=== PATIENT | male | born 1930 | race Caucasian/White ===

== ENCOUNTER 2017-09-11 05:30 | Day surgery (SDC) | payer MEDICARE, BC ==
[~2017-09-11] VITALS: Ht 182.9 cm; Wt 77.1 kg
[~2017-09-11 05:30] MED LIST: ADVAIR 250-501 EACH INH; ASPIRIN EC81 MG PO; BENEFIBER1 EAC1 PO; CALCIUM + VITA1 EACH PO; CALCIUM500 M1 PO; CARBIDOPA-LEVO1 EAC1 PO; FLUZONE HI180 MCG/07 IM; GLUCOSAMINE CH1 EAC4 PO; GLUCOSAMINE SU500 M1 NG; LEVAQUIN500 MG PO; LOSARTAN-HCTZ1 EAC2 PO; MIRALAX17 GM PO; NORCO 5-325 TA1 EACH PO; SYMBICORT 16010.2 GM INH; TERAZOSIN HCL1 MG PO; VITAMIN C500 M1 PO; VITAMIN D1000 UNI1 PO
--- NOTE | 2017-09-11 07:52 | NUR ---
09/11/17 0752 Inessa Quan 0723 PATIENT ARRIVES TO PACU RESTING WITH EYES CLOSED, RESPONDS APPROPRIATELY TO VERBAL STIMUIL. RESP EVEN AND UNLABORED, MASK AT 10 LITERS ON ARRIVAL, TURNED DOWN TO 6L IN PACU.
--- NOTE | 2017-09-11 08:12 | NUR ---
ICED WATER, PUDDING AND COFFEE GIVEN. CALL LIGHT W/IN REACH. PATIENT DRINKING COFFEE AND TOLERATING THAT WELL.
--- NOTE | 2017-09-11 11:17 | NUR ---
LE 1020: PT UP TO BR W/RN STANDBY ASSIST. PT AMBULATES WELL WITH HIS PERSONAL WALKER AND DOES THAT WELL. VERBAL DC INSTRUCTIONS ARE GIVEN AND PATIENT VERBALIZES UNDERSTANDING. PATIENT REQUESTS TO AMBULATE OUT OF HOSPITAL AFTER DRESSING HIMSELF AND WE OBLIGE W/RN ACCOMPANYMENT. SWITCH[employer] CALLING PATIENT'S TRANSPORTATION.
--- NOTE | 2017-09-16 07:27 | OR ---
[facility] [address] [place], [place] [address] Signed DATE OF OPERATION: 09/11/2017 SURGEON: Mark Gardner MD PREOPERATIVE DIAGNOSIS: Asymptomatic loosened orthopedic hardware dorsal aspect, right wrist. POSTOPERATIVE DIAGNOSIS: Asymptomatic loosened orthopedic hardware dorsal aspect, right wrist. PROCEDURE: Removal of hardware. SECONDARY DIAGNOSIS: Posttraumatic osteoarthritis of the right wrist. SECONDARY PROCEDURE: Injection of the right wrist with Xylocaine and Kenalog. ANESTHESIA: General. SPECIMENS: There were no specimens or complications. The removed staple was given to the patient per his request. WHAT WAS DONE: The patient was taken to the operating room. After anesthesia was induced and the airway secured, the right upper extremity was positioned, prepped and draped in a routine sterile fashion. Using his old wrist fusion scar, a small longitudinal incision was made over the dorsal aspect of the wrist. Skin was divided sharply. Subcutaneous tissue was bluntly spread, at which point, we entered into an adventitial bursa around the loose staple. The staple was identified and gently extricated without any difficulty. The wound was irrigated and closed in two layers. Then under fluoroscopic control, we directed an 18-gauge needle into the radiocarpal joint and injected about 2 mL of 1% plain Xylocaine and 1 mL of Kenalog 40. We then infiltrated the area about the incision with an additional 10 mL of 1% plain xylocaine. A sterile dressing was applied. The patient was awakened and taken to the recovery room where he arrived in stable condition. Counts were correct and antibiotic protocols were followed. Electronically Signed By: MARK GARDNER MD 09/16/17 0727 PATIENT NAME: KELLY EARLY OPERATIVE REPORT DATE OF : 32 REPORT #: [id number] PHYSICIAN: MARK GARDNER MD PCP: FISH ALLRED MD REPORT IS CONFIDENTIAL AND NOT TO BE RELEASED WITHOUT AUTHORIZATION [address] [place] [address] Signed Mark Gardner MD WFB/MODL /[id number] Copies: ~ Electronically Signed By: MARK GARDNER MD 09/16/17 0727 PATIENT NAME: KELLY EARLY OPERATIVE REPORT DATE OF : 32 REPORT #: [id number] PHYSICIAN: MARK GARDNER MD PCP: FISH ALLRED MD REPORT IS CONFIDENTIAL AND NOT TO BE RELEASED WITHOUT AUTHORIZATION
== END 2017-09-11 09:35 | disposition home or self-care (01) ==
LOC: OPS 05:30 → DS 05:30 → OPS 06:45 → DS 06:45 → OPS 09:35
PROVIDERS: Orthopaedic Surgery
PROC: 0RPN04Z Removal of Internal Fixation Device from Right Wrist Joint, Open Approach (ICD-10-PCS; principal; 2017-09-11 06:45)
DX: T84.122A Displacement of internal fixation device of bone of right forearm, initial encounter (principal); J45.909 Unspecified asthma, uncomplicated; G20 Parkinson's disease; Z79.82 Long term (current) use of aspirin; Z79.899 Other long term (current) drug therapy
CPT/HCPCS: 01820; 73100; J0690; J2405; J2704; J3010; J3301; J7120

== ENCOUNTER 2018-06-16 05:40 | Day surgery (SDC) | payer MEDICARE, BC ==
[~2018-06-16] VITALS: Ht 182.9 cm; Wt 86.2 kg
--- NOTE | 2018-06-16 09:23 | NUR ---
06/16/18 0923 Holly Menjivar 0801 PT ARRIVED IN PACU SLEEPY WITH NO C/O'S. R HAND ELEVATED ON PILLOW WITH ICE PLACED. 0845 OXYGEN DECREASED TO 6L VIA MASK WITH SATS 100%. 0900 OXYGEN REMOVED. SATS 96% ON RA. PT SITTING UP IN BED SIPPING ON WATER. 0910 DC INSTRUCTIONS GIVEN. HELPED PT GET DRESSED AND SENT PT HOME WITH STAPLE FROM OR. 0915 LEFT VIA W/C WITH VOLUNTEER TO LOBBY WITH [employer] RIDE.
--- NOTE | 2018-06-16 12:19 | NUR ---
PT REQUESTED TO SEE IMELDA CHAU. ALERTED HER TO HIS REQUEST
--- NOTE | 2018-06-18 00:51 | EKG ---
[facility] [address] [facility] [place] [address] Signed Sinus bradycardia with 1st degree AV block Right bundle branch block Left anterior fascicular block Bifascicular block Minimal voltage criteria for LVH, may be normal variant Abnormal ECG No previous ECGs available Confirmed by YOVANI DEVINE MD ([id number]) on 06/18/2018 12:51:37 AM Electronically Signed By: YOVANI DEVINE MD 06/18/18 0051 PATIENT NAME: SHARATHKELLYANTONIO BALL Electrocardiogram DATE OF : 32 PHYSICIAN: YOVANI DEVINE MD REPORT #: [id number] REPORT IS CONFIDENTIAL AND NOT TO BE RELEASED WITHOUT AUTHORIZATION
--- NOTE | 2018-06-18 07:09 | OR ---
[facility] [address] [facility] [place] [facility] [place], [place] [address] Signed DATE OF OPERATION: 06/16/2018 SURGEON: Mark Schuster MD PREOPERATIVE DIAGNOSIS: Symptomatic hardware, right wrist. POSTOPERATIVE DIAGNOSES: 1. Symptomatic hardware, right wrist. 2. Reactive synovitis, right wrist. 3. Rupture of EIP tendon, right wrist. 4. End-stage arthritis, right radiocarpal joint. PROCEDURE: Synovectomy right wrist, removal of retained staple x1 right wrist with a limited proximal row carpectomy, removing most of the remainder of the lunate. ANESTHESIA: General. SPECIMENS: We did send a large fragment of the synovitis as a specimen because of the hemosiderin staining. COMPLICATIONS: There were no complications. WHAT WAS DONE: The patient was taken to the operating room. After anesthesia was induced and airway secured, the patient was positioned, prepped and draped in a routine sterile fashion. We used an old dorsal scar sort of along the 4th dorsal compartment and incised the skin. Underneath it was a large area of chronic hemosiderin-stained synovitis involving the 4th dorsal compartment primarily. A synovectomy was performed and as we had dissected the synovium off, it was apparent that the EIP had previously ruptured and the ends were rounded and smooth. After completing the synovectomy, it led through a defect in the dorsal capsule of the wrist joint. This was opened gently with the use of rongeur to do a synovectomy of the wrist joint. We then identified and removed. The capitate lunate staple which was loose and there was a clear nonunion at the capitate lunate interval. We then removed most of the remaining portion of the lunate. This then enabled us to regain about 45 degrees of dorsal flexion of the wrist. We elected Electronically Signed By: MARK SCHUSTER MD 06/18/18 0709 PATIENT NAME: KELLY EARLY OPERATIVE REPORT DATE OF : 32 REPORT #: [id number] PHYSICIAN: MARK SCHUSTER MD PCP: FISH ALLRED MD REPORT IS CONFIDENTIAL AND NOT TO BE RELEASED WITHOUT AUTHORIZATION [facility] [address] [place], [place] [address] Signed to leave the hamate in place as it was significantly volarly subluxed and appeared to be stable on the ulnar column. The wound was gently irrigated. We closed the dorsal wrist capsule with 2-0 Vicryl and I closed the subcutaneous layer with 4-0 Vicryl. The skin was secured with Dermabond. A bulky dressing was applied and the patient was awakened and taken to recovery room where he arrived in stable condition. Counts were correct and antibiotic protocols were followed. Mark Schuster MD WFRay/MODL /[id number] Copies: ~ Electronically Signed By: MARK SCHUSTER MD 06/18/18 0709 PATIENT NAME: KELLY EARLY OPERATIVE REPORT DATE OF : 32 REPORT #: [id number] PHYSICIAN: MARK SCHUSTER MD PCP: FISH ALLRED MD REPORT IS CONFIDENTIAL AND NOT TO BE RELEASED WITHOUT AUTHORIZATION
== END 2018-06-16 09:15 | disposition home or self-care (01) ==
LOC: DS 05:40 → OPS 05:40 → DS 06:45 → OPS 06:45
PROVIDERS: Orthopaedic Surgery
PROC: 0PPM04Z Removal of Internal Fixation Device from Right Carpal, Open Approach (ICD-10-PCS; principal; 2018-06-16 06:45)
DX: T84.84XA Pain due to internal orthopedic prosthetic devices, implants and grafts, initial encounter (principal); M19.031 Primary osteoarthritis, right wrist; M65.821 Other synovitis and tenosynovitis, right upper arm; I10 Essential (primary) hypertension; J44.9 Chronic obstructive pulmonary disease, unspecified; G20 Parkinson's disease; Z79.82 Long term (current) use of aspirin; Z79.899 Other long term (current) drug therapy
CPT/HCPCS: 01820; 76000; 88305; 88311; 93005; 93010; J0690; J2250; J2704; J3010; J7120

== ENCOUNTER 2018-10-06 14:23 | Emergency (ER) | payer MEDICARE, BC ==
[~2018-10-06] VITALS: Ht 182.9 cm; Wt 86.2 kg
--- OUTSIDE RECORDS SUMMARY | ~2018-10-06 | XMS | Clinical Summary ---
Demographics + + + | Address | [address] | | | [place] [address] | + + + | Home Phone | | + + + | Preferred Language | Unknown | + + + | Marital Status | | + + + | Episcopal Affiliation | Unknown | + + + | Race | White | + + + | Ethnic Group | Not or | + + + Author + + + | Organization | Unknown | + + + | Address | Unknown | + + + | Phone | Unavailable | + + + Support + + + + + | Name | Relationship | Address | Phone | + + + + + | ERICKSON EARLY I | ECON | [place] | | + + + + + Care Team Providers + +------+ + | Care Nailhead Puncher Name | Role | Phone | + +------+ + PP | Unavailable | + +------+ + Source Comments NOAH is fully live on both [facility] Ambulatory and [facility] InPatient.[facility] Allergies Not on File Current Medications Not on file Active Problems Not on file Social History + +-------+ +--------+------+ | Tobacco Use | Types | Packs/Day | Years | Date | | | | | Used | | + +-------+ +--------+------+ | Never Assessed | | | | | + +-------+ +--------+------+ + + + | Sex Assigned at | Date Recorded | | | | + + + | Not on file | | + + + Plan of Treatment + + + + + | Health Maintenance | Due Date | Last Done | Comments | + + + + + | Pneumococcal (Adult) | | | | | (1 of 2 - PCV13) | 8 | | | + + + + + | Influenza (Flu) | | | | | vaccination (#1) | 8 | | | + + + + + Results Not on filefrom Last 3 Months"
--- OUTSIDE RECORDS SUMMARY | ~2018-10-06 | XMS | Clinical Summary ---
Demographics + + + | Address | [address] | | | [place] [address] | + + + | Home Phone | | + + + | Preferred Language | Unknown | + + + | Marital Status | | + + + | Zoroastrianism Affiliation | Unknown | + + + [...] Team Providers + +------+ + | Care Greenhouse Specialist Name | Role | Phone | + +------+ + PP | Unavailable | + +------+ + Source Comments NOAH is fully live on both [facility] and [facility] InPatient.[facility] Allergies Not on File Current Medications [...]
[2018-10-06] MEDS ORDERED: TROSPIUM CHLORI20 MG PO (14:49)
[2018-10-06] MEDS ORDERED: SYMBICORT 16010.2 GM INH (14:50)
[2018-10-06] MEDS ORDERED: AMLODIPINE BESYL5 MG PO (16:19)
== END 2018-10-06 16:48 | disposition home or self-care (01) ==
LOC: ED 14:23
DX: I10 Essential (primary) hypertension (principal); R42 Dizziness and giddiness; J44.9 Chronic obstructive pulmonary disease, unspecified; Z79.899 Other long term (current) drug therapy; Z79.82 Long term (current) use of aspirin
CPT/HCPCS: 80053; 84484; 85025; 99284

== ENCOUNTER 2019-08-14 16:25 | Emergency (ER) | payer MEDICARE, BC ==
[~2019-08-14] VITALS: Ht 182.9 cm; Wt 86.2 kg
[~2019-08-14 16:25] MED LIST changes: +AMLODIPINE BESYL5 MG PO; +TROSPIUM CHLORI20 MG PO
--- NOTE | 2019-08-14 20:17 | EKG ---
[facility] [address] [facility] [place] [address] Signed Sinus rhythm with 1st degree AV block Right bundle branch block Left anterior fascicular block Bifascicular block Left ventricular hypertrophy with repolarization abnormality Abnormal ECG When compared with ECG of 16-JUN-2018 07:20, T wave inversion no longer evident in Inferior leads Confirmed by JABARI JOSEPH MD ([id number]) on 08/14/2019 8:17:37 PM Electronically Signed By: JABARI JOSEPH MD 08/14/192016 PATIENT NAME: KELLY EARLY Electrocardiogram DATE OF : 32 PHYSICIAN: JABARI JOSEPH MD REPORT #: [id number] REPORT IS CONFIDENTIAL AND NOT TO BE RELEASED WITHOUT AUTHORIZATION
== END 2019-08-14 18:42 | disposition home or self-care (01) ==
LOC: ED 16:25
DX: E86.0 Dehydration (principal); G20 Parkinson's disease; J44.9 Chronic obstructive pulmonary disease, unspecified; Z79.899 Other long term (current) drug therapy; Z79.82 Long term (current) use of aspirin
CPT/HCPCS: 80053; 81001; 85025; 93005; 93010; 96360; 99285-25; J7121

== ENCOUNTER 2019-08-18 22:20 | Observation (INO) | payer MEDICARE, BC ==
[~2019-08-18] VITALS: Ht 182.9 cm; Wt 77.1 kg
[~2019-08-18 22:20] MED LIST changes: -AMLODIPINE BESYL5 MG PO; +NORVASC10 MG PO; -VITAMIN D1000 UNI1 PO; +VITAMIN D325 MC1 PO
--- OUTSIDE RECORDS SUMMARY | 2019-08-18 22:22 | XMS ---
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 EBraydon VISIT COUNT (12 MO.) 3 [facility] TOTAL 3 NOTE: Visits indicate total known visits. ED/UCC VISIT TRACKING (12 MO.) 08/18/2019 22:20 [facility] [place] TYPE: Emergency COMPLAINT: - FALL 08/14/2019 16:25 [facility] [place] TYPE: Emergency COMPLAINT: - WEAKNESSR DIAGNOSES: - Chronic obstructive pulmonary disease, unspecified - Other fpc (current) drug therapy - Weakness - Dehydration - exterminator helper termite (current) use of aspirin - Parkinson's disease 10/06/2018 14:[address] [facility] [place] TYPE: Emergency COMPLAINT: - FALL,HIGH BLOOD PRESSURE DIAGNOSES: - exterminator helper termite (current) use of aspirin - Other fpc (current) drug therapy - Essential (primary) hypertension - Chronic obstructive pulmonary disease, unspecified - Unspecified fall, initial encounter - Dizziness and giddiness INPATIENT VISIT TRACKING (12 MO.) No inpatient visits to display in this time frame [email or web address]
[2019-08-19] MEDS ORDERED: COZAAR100 MG PO (09:12)
[2019-08-19] MEDS ORDERED: MELATIN3 MG PO (09:17)
[2019-08-19] MEDS ORDERED: CALCIUM 600 +1 EA12 PO (09:19)
[2019-08-19] MEDS ORDERED: VITAMIN C500 M1 PO (09:21)
[2019-08-19] MEDS ORDERED: ADVIL200 MG PO (10:31)
--- NOTE | 2019-08-20 06:19 | CONS ---
[facility] [address] [place], [place] [address] Signed DATE OF CONSULTATION: 08/19/2019 CHIEF COMPLAINT: Trauma/fall. HISTORY OF PRESENT ILLNESS: Kelly is an 89-year-old gentleman with Parkinson disease since 2016. I have known Kelly for many years. He now lives at [facility]. It is an assisted living setting. He uses a four-wheeled walker to get around. He was headed into the bathroom and got going too far forward and fell. He said there was a pearce outside the bathtub on the floor that catches the extra water. It sticks up off the floor 3 to 6 inches. From what we can tell, he struck the left side of his chest wall on that pearce. He said it took him a few minutes to actually get up. To his knowledge, he had no loss of consciousness. He was brought into our local emergency room. He was evaluated by Dr. Pickering. He has left rib fractures 4, 5, and 6. The 5th rib is actually comminuted. He has a small amount of subcutaneous emphysema. Therefore, a CT scan was performed and he does have a very tiny pneumothorax with some associated blood. He also has a nondisplaced left scapular fracture. Consequently, I was asked to admit him as a general surgeon on-call. Overnight, he has done well. He said the pain is pretty impressive. PAST MEDICAL HISTORY: Parkinson disease since 2016, COPD, prostate cancer, right clavicular fracture, and a small hiatal hernia. PAST SURGICAL HISTORY: Right wrist surgery, brachytherapy for the prostate cancer. SOCIAL HISTORY: He does not smoke or drink anymore. He is a . Dr. Anthony Tubbs is his primary care provider. He prefers the [facility]. His brother is Hunter at [phone]. He has three of his own sons and he has four stepdaughters. He stays at [facility]. He no longer drives and uses a four-wheeled walker. FAMILY HISTORY: Not reviewed. REVIEW OF SYSTEMS: He had 10 systems reviewed. He told me how he has gone from the cane to the four-wheeled walker. Otherwise, no major changes. ALLERGIES: None. Electronically Signed By: LOUISE FERNANDEZ MD 08/20/19 0619 PATIENT NAME: KELLY EARLY CONSULTATION DATE OF : 32 REPORT #: [id number] PHYSICIAN: LOUISE FERNANDEZ MD PCP: ANTHONY TUBBS MD REPORT IS CONFIDENTIAL AND NOT TO BE RELEASED WITHOUT AUTHORIZATION [facility] [address] [place], [place] [address] Signed MEDICATIONS: 1. Symbicort. 2. Sinemet. 3. Losartan. 4. Hydrochlorothiazide. 5. Aspirin. 6. Vitamin C. 7. Vitamin D. 8. Glucosamine. 9. Calcium. 10. . 11. Amlodipine. PHYSICAL EXAMINATION: VITAL SIGNS: Blood pressure 158/76, heart rate 82, respiratory rate 20, his temperature is 98.5, he is 95% on room air. He is 6 feet tall, weight 77 kg. We are waiting an incentive spirometer. GENERAL: Kelly is an 89-year-old gentleman lying supine in his hospital bed. He is alert, awake, and interactive. He recognizes me quite readily. LUNGS: Clear to auscultation bilaterally. He does have some pain in that left chest wall particularly posteriorly. HEART: Regular rate and rhythm without murmurs. ABDOMEN: Soft, nontender. LABORATORY DATA: His white blood cell count is 13.2, hemoglobin 11.9, neutrophils 88, platelets 226. BUN 19, creatinine 0.8. Urinalysis unremarkable. Liver function tests are negative. His amylase is negative. Alcohol was less than 10. His creatine kinase was 395. RADIOGRAPHIC STUDIES: A chest x-ray shows the left 4th, 5th and 6th rib fractures with a small amount of subcutaneous emphysema. No obvious pneumothorax on the chest x-ray. CT scan of the chest does show the left 4th, 5th, and 6th rib fractures. The 5th rib fracture appears to be comminuted. Of course, he has a small amount of subcutaneous emphysema and just a very trace amount of left pneumothorax with some blood associated with it. He may or may not have some contusion there to that lung and then he has the left nondisplaced scapular fracture. ASSESSMENT AND PLAN: Kelly is an 89-year-old gentleman who presents after a ground level fall onto a hard shower pearce. He now has a left rib fracture 4, 5, and 6 along with left scapular fracture, probable pulmonary contusion, a very small trace left pneumothorax. He has been admitted, given IV fluids overnight, and some pain control. This morning, we are Electronically Signed By: LOUISE FERNANDEZ MD 08/20/19 0619 PATIENT NAME: KELLY EARLY CONSULTATION DATE OF : 32 REPORT #: [id number] PHYSICIAN: LOUISE FERNANDEZ MD PCP: ANTHONY TUBBS MD REPORT IS CONFIDENTIAL AND NOT TO BE RELEASED WITHOUT AUTHORIZATION [facility] [address] [place] [address] Signed going to consult our Physical Therapy Department. We will have him help with his front-wheeled walker. We will increase his diet and add his medications and we will repeat the chest x-ray tomorrow. He knows that in a day or 2 or 3 depending on his progress, he may go back to [facility], but he may need a mcfp for short time until he is feeling better, then can go back to [facility]. He has expressed understanding and agrees with above plan. Louise Fernandez MD ALB/ORALIAL /[id number] cc: Anthony Tubbs MD Copies: ANTHONY TUBBS MD ~ Electronically Signed By: LOUISE FERNANDEZ MD 08/20/19 0619 PATIENT NAME: KELLY EARLY CONSULTATION DATE OF : 32 REPORT #: [id number] PHYSICIAN: LOUISE FERNANDEZ MD PCP: ANTHONY TUBBS MD REPORT IS CONFIDENTIAL AND NOT TO BE RELEASED WITHOUT AUTHORIZATION
[2019-08-23] MEDS ORDERED: NORCO 5-325 TA1 EACH PO (08:07)
--- NOTE | 2019-08-24 18:30 | DS ---
[facility] [address] [place], [place] [address] Signed ADMISSION DATE: 08/18/2019 DISCHARGE DATE: 08/23/2019 FINAL DIAGNOSES: 1. Left rib fractures, 4, 5, and 6. 2. Left scapular fracture. 3. Trace left pneumothorax. PROCEDURE: X-rays. HISTORY OF PRESENT ILLNESS: Kelly is an 89-year-old gentleman with Parkinson disease. He resides at our local [facility]. He was headed into the bathroom and the walker got front of him and he fell forward onto a drip pearce next to the shower. It sits up off the floor 3 or 4 inches. He fractured his left scapula as well as left ribs 4, 5, and 6. In fact, rib 5 is a bit comminuted. He also had a trace pneumothorax. He had been brought to our local emergency room for evaluation. I was asked to admit him as a general surgeon on-call. HOSPITAL COURSE: Kelly was admitted as above. He actually has done well. Given his age and his Parkinson disease, we had him work with physical therapy every day. He has been able to improve each and every day. He is now on a regular diet and taking his regular medications. He took one hydrocodone yesterday and otherwise is doing well. He thinks Advil works pretty well for him. We did add some Dulcolax and MiraLAX to jump-start his bowel movements. Kelly has been in an extended care facility previously. We did talk about that and he feels at this point he is strong enough he does not need that. He wanted to go back to [facility]. DISCHARGE PLANS AND MEDICATIONS: Kelly is going to go back to [facility]. He will continue a regular diet and all his regular medications. I will give him a small prescription for hydrocodone 5/325 1 tablet p.o. q.6 hours p.r.n. for severe pain. We will dispense 20 tablets with no refills. He can continue to use his walker and ambulate as needed. He will shower and bathe as needed as well. We are going to see him back in the office in about 10-14 days for followup. He has expressed understanding and agrees above plan. Electronically Signed By: LOUISE FERNANDEZ MD 08/24/19 1830 PATIENT NAME: KELLY EARLY DISCHARGE SUMMARY DATE OF : 32 REPORT #: [id number] PHYSICIAN: LOUISE FERNANDEZ MD PCP: ANTHONY ALLRED MD REPORT IS CONFIDENTIAL AND NOT TO BE RELEASED WITHOUT AUTHORIZATION [address] [address] Signed MD IGOR Tripp/ORALIAL /[id number] cc: MD Anthony Tripp MD Copies: LOUISE FERNANDEZ MD, MALCOLM MD ~ Electronically Signed By: LOUISE FERNANDEZ MD 08/24/19 1830 PATIENT NAME: KELLY EARLY LIZZY DISCHARGE SUMMARY DATE OF : 32 REPORT #: [id number] PHYSICIAN: LOUISE FERNANDEZ MD PCP: ANTHONY ALLRED MD REPORT IS CONFIDENTIAL AND NOT TO BE RELEASED WITHOUT AUTHORIZATION
== END 2019-08-23 09:40 | disposition home or self-care (01) ==
LOC: ED 22:20 → MS 22:21
PROVIDERS: ADMIT Colon & Rectal Surgery
DX: S22.42XA Multiple fractures of ribs, left side, initial encounter for closed fracture (principal); S42.192A Fracture of other part of scapula, left shoulder, initial encounter for closed fracture; S27.0XXA Traumatic pneumothorax, initial encounter; G20 Parkinson's disease; J44.9 Chronic obstructive pulmonary disease, unspecified; Z79.899 Other long term (current) drug therapy; W19.XXXA Unspecified fall, initial encounter
CPT/HCPCS: 36415; 71046; 71101; 71260; 80048; 80053; 81001; 82150; 82550; 83690; 83735; 84100; 85025; 86850; 86900; 86901; 94640; 94760; 96360; 96361; 96374; 97110; 97116; 97162; 99285-25; G0378; G0480; J2270; J7030; J7121; Q9967

== ENCOUNTER 2020-03-04 07:40 | Emergency (ER) | payer MEDICARE, BC ==
[~2020-03-04] VITALS: Ht 182.9 cm; Wt 77.1 kg
[~2020-03-04 07:40] MED LIST changes: +ADVIL200 MG PO; +CALCIUM 600 +1 EA12 PO; +COZAAR100 MG PO; +MELATIN3 MG PO
[2020-03-04] MEDS ORDERED: FLOMAX0.4 MG PO (12:16)
--- NOTE | 2020-03-04 13:13 | EKG ---
[facility] [address] [facility] [place] [address] Signed Sinus rhythm with 1st degree AV block Right bundle branch block Left anterior fascicular block Bifascicular block Abnormal ECG When compared with ECG of 14-AUG-2019 16:40, No significant change was found Confirmed by YOVANI DEVNIE MD ([id number]) on 03/04/2020 1:13:20 PM Electronically Signed By: YOVANI DEVINE MD 03/04/20 1313 PATIENT NAME: KELLY EARLY LIZZY Electrocardiogram DATE OF : 32 PHYSICIAN: YOVANI DEVINE MD REPORT #: [id number] REPORT IS CONFIDENTIAL AND NOT TO BE RELEASED WITHOUT AUTHORIZATION
[2020-03-05] MEDS ORDERED: TAMSULOSIN HCL0.4 MG PO (08:22)
[2020-03-05] MEDS ORDERED: KEFLEX500 MG PO (12:46)
== END 2020-03-04 13:16 | disposition home or self-care (01) ==
LOC: ED 07:40
DX: R33.9 Retention of urine, unspecified (principal); R60.0 Localized edema; J44.9 Chronic obstructive pulmonary disease, unspecified; G20 Parkinson's disease; Z79.899 Other long term (current) drug therapy
CPT/HCPCS: 51702; 51798; 80053; 81001; 83880; 84484; 85025; 93005; 93010; 99284-25; J1940

== ENCOUNTER 2020-03-05 08:07 | Emergency (ER) | payer MEDICARE, BC ==
[~2020-03-05] VITALS: Ht 182.9 cm; Wt 77.1 kg
[~2020-03-05 08:07] MED LIST changes: +FLOMAX0.4 MG PO
--- OUTSIDE RECORDS SUMMARY | 2020-03-05 08:10 | XMS ---
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 - 2 Visits in 30 Days CARE PROVIDERS FISH ALLRED Internal Medicine 08/19/2019-Current PHONE: Unknown Helen has no Care Guidelines for this patient. Care History Medical/Surgical 08/19/2019 [facility] - Patient is currently established with [facility]. If patient is seen in the ED during business hours. Please contact CHWs at [facility]. Care Recommendation: If this patient has had 5 or more Emergency Department visits in the last 12 months.\T\nbsp; Patient will require education on the scope and purpose of the ED as an acute care provider not a Primary Care Provider and should not be utilized for chronic conditions.\T\nbsp; These are guidelines and the provider should exercise clinical judgment when providing care. E.D. VISIT COUNT (12 MO.) 4 [facility] TOTAL 4 NOTE: Visits indicate total known visits. 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
[2020-03-05] MEDS ORDERED: TAMSULOSIN HCL0.4 MG PO (08:22)
[2020-03-05] MEDS ORDERED: KEFLEX500 MG PO (12:46)
--- NOTE | 2020-03-05 12:49 | EKG ---
[facility] [address] [facility] [place] [address] Signed Sinus rhythm with first degree AV Block Left anterior fascicular block Right bundle branch block Bifascicular block Left ventricular hypertrophy Abnormal ECG When compared with ECG of 04-MAR-2020 08:08, No significant change was found Confirmed by YOVANI DEVINE MD ([id number]) on 03/05/2020 12:49:36 PM Electronically Signed By: YOVANI DEVINE MD 03/05/20 1249 PATIENT NAME: KELLY EARLY Electrocardiogram DATE OF : 32 PHYSICIAN: YOVANI DEVINE MD REPORT #: [id number] REPORT IS CONFIDENTIAL AND NOT TO BE RELEASED WITHOUT AUTHORIZATION
== END 2020-03-05 12:58 | disposition home or self-care (01) ==
LOC: ED 08:07
DX: N39.0 Urinary tract infection, site not specified (principal); K59.00 Constipation, unspecified; J44.9 Chronic obstructive pulmonary disease, unspecified; G20 Parkinson's disease; Z79.899 Other long term (current) drug therapy
CPT/HCPCS: 71045; 74177; 80053; 81001; 83735; 83880; 84484; 85025; 85610; 85730; 93005; 93010; 96361; 99285-25; J0696; J7030

== ENCOUNTER 2020-03-07 18:34 | Emergency (ER) | payer MEDICARE, BC ==
[~2020-03-07] VITALS: Ht 182.9 cm; Wt 77.1 kg
[~2020-03-07 18:34] MED LIST changes: +KEFLEX500 MG PO; +TAMSULOSIN HCL0.4 MG PO
--- OUTSIDE RECORDS SUMMARY | 2020-03-07 18:36 | XMS ---
PreManage Notification: KELLY EARLY Security Discovery Guide Events No recent Security Events currently on file CRITERIA MET - [facility] - 2 Visits in 30 Days CARE PROVIDERS FISH ALLRED Internal Medicine 08/19/2019-Current PHONE: Unknown Helen has no Care Guidelines for this patient. Care History Medical/Surgical 08/19/2019 [facility] - Patient is currently established with [facility]. If patient is seen in the ED during business hours. Please contact CHWs at [facility]. Care Recommendation: If this patient has had [...] providing care. E.D. VISIT COUNT (12 MO.) 5 [facility] TOTAL 5 NOTE: Visits indicate total known visits. ED/UCC VISIT TRACKING (12 MO.) 03/07/2020 18:35 [facility] [place] TYPE: Emergency COMPLAINT: - RECTAL BLEEDING 03/05/2020 08:07 [facility] [place] TYPE: Emergency COMPLAINT: - WEAKNESS 03/04/2020 07:40 [facility] [place] TYPE: Emergency COMPLAINT: - WEAKNESS DIAGNOSES: - Parkinson's disease - Other mcfp (current) drug therapy - Localized edema - Chronic obstructive pulmonary disease, unspecified - Retention of urine, unspecified - Other difficulties with micturition 08/18/2019 22:20 [facility] [place] TYPE: Emergency COMPLAINT: - FALL 08/14/2019 16:25 [facility] [place] TYPE: Emergency COMPLAINT: - WEAKNESSR DIAGNOSES: - Chronic obstructive pulmonary disease, unspecified - Other adjunct faculty for medical terminology (current) drug 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 - Weakness - Dehydration - 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 - Parkinson's disease INPATIENT VISIT TRACKING (12 MO.) 08/18/2019 22:21 [facility] [place] TYPE: Observation COMPLAINT: - CHEST TRAUMA DIAGNOSES: - Dizziness and giddiness - Unspecified fall, initial encounter - Fracture of other part of scapula, left shoulder, initial enc - Parkinson's disease - Other adjunct faculty for medical terminology (current) drug therapy - Traumatic pneumothorax, initial encounter - Chronic obstructive pulmonary disease, unspecified - Multiple fractures of ribs, left side, initial encounter for [email or web address]
[2020-03-08] MEDS ORDERED: K-TAB ER20 MEQ PO (13:45)
--- NOTE | 2020-03-09 17:45 | EKG ---
[facility] [address] [place] [place] [address] Signed Atrial fibrillation with slow ventricular response Right bundle branch block Left anterior fascicular block Bifascicular block Minimal voltage criteria for LVH, may be normal variant Abnormal ECG When compared with ECG of 05-MAR-2020 08:49, Previous ECG has undetermined rhythm, needs review Right bundle branch block is now present Minimal criteria for Inferior infarct are no longer present Confirmed by JERSON DUONG DO ([id number]) on 03/09/2020 5:44:46 PM Electronically Signed By: JERSON DUONG DO 03/09/20 1745 PATIENT NAME: KELLY EARLY Electrocardiogram DATE OF : 34 PHYSICIAN: JERSON DUONG DO REPORT #: [id number] REPORT IS CONFIDENTIAL AND NOT TO BE RELEASED WITHOUT AUTHORIZATION
== END 2020-03-07 20:56 | disposition home or self-care (01) ==
LOC: ED 18:34
DX: K62.5 Hemorrhage of anus and rectum (principal); J44.9 Chronic obstructive pulmonary disease, unspecified; G20 Parkinson's disease; Z79.899 Other long term (current) drug therapy
CPT/HCPCS: 80053; 85025; 85610; 85730; 86850; 86900; 86901; 93005; 93010; 99284-25

== ENCOUNTER 2020-03-08 10:59 | Emergency (ER) | payer MEDICARE, BC ==
[~2020-03-08] VITALS: Ht 182.9 cm; Wt 77.1 kg
--- OUTSIDE RECORDS SUMMARY | ~2020-03-08 | XMS | Encounter Summary ---
Demographics + + + | Address | [address] | | | [place] [address] | + + + | Home Phone | | + + + | Preferred Language | Unknown | + + + | Marital Status | | + + + | Cheondoism Affiliation | Unknown | + + + | Race | White | + + + | Ethnic Group | Not or | + + + Author + + + | Author | [facility] | | | and [place] | + + + | Organization | [facility] | | | and [place] | + + + | Address | Unknown | + + + | Phone | Unavailable | + + + Support + + +---------+ + | Name | Relationship | Address | Phone | + + +---------+ + | Trevor Briceno | ECON | Unknown | | + + +---------+ + Care Team Providers + +------+ + | Care Textile Machinery Instructor Name | Role | Phone | + +------+ + | Anthony Tubbs MD | PCP | | + +------+ + Reason for Referral Diagnostic/Screening (Routine) +--------+--------+ + + + + | Status | Reason | Specialty | Diagnoses / | Referred By | Referred To | | | | | Procedures | Contact | Contact | +--------+--------+ + + + + | Closed | | Radiology | Diagnoses | Dara, | [facility] [address] | | | | | Cognitive | MD Ghassan | [address] | | | | | impairment | [address] | [place] | | | | | Gait | [place] | [address] | | | | | difficulty | [address]IVE [address] | Phone: | | | | | Procedures | D | [phone] | | | | | CT Head wo | [place], | Fax: | | | | | Contrast | [place] [address] | [phone] | | | | | | Phone: | | | | | | | [phone] | | | | | | | Fax: | | | | | | | [phone] | | +--------+--------+ + + + + Reason for Visit Diagnostic/Screening (Routine) +--------+--------+ + + + + | Status | Reason | Specialty | Diagnoses / | Referred By | Referred To | | | | | Procedures | Contact | Contact | +--------+--------+ + + + + | Closed | | Radiology | Diagnoses | [place], | [address] | | | | | Cognitive | MD Ghassan | [address] | | | | | impairment | [address] [facility] | | | | | Gait | [place] | [address] | | | | | difficulty | [address]IVE SUITE | Phone: | | | | | Procedures | D | [phone] | | | | | CT Head wo | [place], | Fax: | | | | | Contrast | [place] [address] | [phone] | | | | | | Phone: | | | | | | | [phone] | | | | | | | Fax: | | | | | | | [phone] | | +--------+--------+ + + + + Encounter Details +--------+ + + + + | Date | Type | Department | Care Team | Description | +--------+ + + + + | 07/30/ | Hospital | [facility] | Ghassan Diamond, | Cognitive | | 2020 | Encounter | [facility] [address] | MD Mauricio STEPHENS | impairment; Gait | | | | [address] | [address] | difficulty | | | | [place], [place] | [place] [address] | | | | | [address] | [phone] | | | | | [phone] | | | +--------+ + + + + Social History + +-------+ +--------+------+ | Tobacco Use | Types | Packs/Day | Years | Date | | | | | Used | | + +-------+ +--------+------+ | Never Smoker | | | | | + +-------+ +--------+------+ + +---+---+---+ | Smokeless Tobacco: | | | | | Former User | | | | + +---+---+---+ + + +---------+ + | Alcohol Use | Drinks/Week | oz/Week | Comments | + + +---------+ + | Not Currently | | | | + + +---------+ + + + + | Sex Assigned at | Date Recorded | | | | + + + | Not on file | | + + + documented as of this encounter Medications at Time of Discharge + + + +---------+ + + | Medication | Sig | Dispensed | Refills | Start | End Date | | | | | | Date | | + + + +---------+ + + | amLODIPine | TK 1 T PO QD | | 0 | 04/05/20 | | | (NORVASC) 10 MG | | | | 19 | | | tablet | | | | | | + + + +---------+ + + | Ascorbic Acid | Take by mouth. | | 0 | | | | (VITAMIN C) 500 MG | | | | | | | CAPS | | | | | | + + + +---------+ + + | Calcium | Take by mouth. | | 0 | | | | Carbonate-Vit D-Min | | | | | | | (CALCIUM 1200 PO) | | | | | | + + + +---------+ + + | losartan (COZAAR) | TK 1 T PO ONCE D | | 0 | 04/05/20 | | | 100 MG tablet | | | | 19 | | + + + +---------+ + + | SYMBICORT 160-4.5 | | | 0 | 05/24/20 | | | MCG/ACT inhaler | | | | 19 | | + + + +---------+ + + | trospium 20 MG | | | 0 | 07/03/19 | | | tablet | | | | 20 | | + + + +---------+ + + | VITAMIN D, | Take by mouth. | | 0 | | | | CHOLECALCIFEROL, PO | | | | | | + + + +---------+ + + | carbidopa-levodopa | Take 1 tablet by | 120 | 3 | 07/12/19 | | | (SINEMET) 25-100 mg | mouth 4 times daily. | tablet | | 20 | 0 | | per tablet | | | | | | + + + +---------+ + + documented as of this encounter Plan of Treatment Not on filedocumented as of this encounter Procedures + +--------+ + + + | Procedure Name | Priori | Date/Time | Associated Diagnosis | Comments | | | ty | | | | + +--------+ + + + | CT HEAD WO CONTRAST | Routin | 07/30/2019 | Cognitive | Results for this | | | e | 2:19 PM | impairment Gait | procedure are in the | | | | PST | difficulty | results section. 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 Signed by: Antoine | | | Rah Solorzano Sign Date/Time: 08/02/2019 7:24 AM | | + + + + + + | Narrative | Performed At | + + + | CT HEAD WITHOUT CONTRAST CLINICAL INFORMATION: Memory Loss | [facility] | | COMPARISON: None. PROCEDURE: Axial images were obtained | | | through the head without IV contrast. Multiplanar reformations were | | | obtained from the acquisition data. At least one of the following | | | CT dose optimization techniques were used: Automated exposure | | | control; Adjustment of mA and/or kV according to patient size; Use of | | | iterative reconstruction technique. FINDINGS: Brain: Mild | | | diffuse cerebral atrophy. Mild areas of decreased density within | | | the supratentorial white matter that are nonspecific but most likely | | | on the basis of chronic white matter microvascular ischemic gliosis. | | | No mass, hemorrhage, or midline shift. Ventricles and | | | extra-axial fluid spaces: Normal. Paranasal sinuses and mastoid | | | air cells: Postsurgical changes of the paranasal sinuses. Minimal | | | mucosal thickening with small mucous retention cysts in the maxillary | | | sinuses. Calvarium and extracranial soft tissues: Normal. | | | Orbits: Imaged portions of the orbits are normal. | | + + + + + | Procedure Note | + + | Yefri, Rad Results In 08/02/2019 7:27 AM PST | | CT HEAD WITHOUT CONTRAST | | | | CLINICAL INFORMATION: | | Memory Loss | | | | COMPARISON: | | None. | | | | PROCEDURE: | | Axial images were obtained through the head without IV contrast. | | Multiplanar reformations were obtained from the acquisition data. | | | | At least one of the following CT dose optimization techniques were | | used: Automated exposure control; Adjustment of mA and/or kV according | | to patient size; Use of iterative reconstruction technique. | | | | FINDINGS: | | Brain: Mild diffuse cerebral atrophy. Mild areas of decreased density | | within the supratentorial white matter that are nonspecific but most | | likely on the basis of chronic white matter microvascular ischemic | | gliosis. No mass, hemorrhage, or midline shift. | | | | Ventricles and extra-axial fluid spaces: Normal. | | | | Paranasal sinuses and mastoid air cells: Postsurgical changes of the | | paranasal sinuses. Minimal mucosal thickening with small mucous | | retention cysts in the maxillary sinuses. | | | | Calvarium and extracranial soft tissues: Normal. | | | | Orbits: Imaged portions of the orbits are normal. | | | | IMPRESSION: | | Mild diffuse cerebral atrophy with probable mild chronic white matter | | microvascular ischemic gliosis. 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
--- OUTSIDE RECORDS SUMMARY | ~2020-03-08 | XMS | Encounter Summary ---
Demographics + + + | Address | [address] | | | [place] [address] | + + + | Home Phone | | + + + | Preferred Language | Unknown | + + + | Marital Status | | + + + | Confucianist Affiliation | Unknown | + + + | Race | White | + + + | Ethnic Group | Not or | + + + Author + + + | Author | [facility] | | | and [place] | + + + | Organization | [facility] | | | and [...] Team Providers + +------+ + | Care Ferryboat Deckhand Name | Role | Phone | + +------+ + | Anthony Tubbs MD | PCP | | + +------+ + Reason for Visit + +--------+ + | Reason | Onset | Comments | | | Date | | + +--------+ + | Labs Only | 07/14/ | | | | 2020 | | + +--------+ + Encounter Details +--------+ + + + + | Date | Type | Department | Care Team | Description | +--------+ + + + + | 07/14/ | Telephone | [facility] | Ghassan Diamond, | Labs Only | | 2019 | | NEUROLOGY [address] | MD [address] | | | | | [address] | [address] | | | | | [place], [place] | [place] [address] | | | | | [address] | [phone] | | | | | [phone] | | | +--------+ + + + [...] + + documented as of this encounter Miscellaneous Notes Telephone Encounter - Friedens, Tony Tovar - 07/14/2019 2:13 PM PSTCarly, is calling regarding Labs Only and would like a call back. Additional Call Details: Called to request blood draw orders that the patient states the quinn ab should have from Dr. Diamond. Phone number is [phone]. Fax number is [phone]. If this is a symptom based call, was patient offered triage? Not Applicable If this is a symptom based call and you were unable to immediately transfer the call to a claribel hamilton neuroscience director na was caller made aware that if at any time he feels it is an emergency they keyla uld call 911 or go to the nearest emergency room? not applicable documented in this encounter Plan of Treatment Not on filedocumented as of this encounter Visit Diagnoses Not on filedocumented in this encounter"
--- OUTSIDE RECORDS SUMMARY | ~2020-03-08 | XMS | Encounter Summary ---
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 | Role | Phone | + [...] | Radiology | Diagnoses | Dara, | [facility] [address] | | | | | Cognitive | MD Ghassan | [address] | | | | | impairment | [address] | [address] [address] | | | | | Gait | [place] | [address] | | | | | difficulty | DRIVE [address] | Phone: | | | | | Procedures | D | [phone] | | | | | CT Head wo | [place], | Fax: | | | | | Contrast | [place] [address] | [phone] | | | | | | Phone: | | | | | | | [phone] | | | | | | | Fax: | | | | | | | [phone] | | +--------+--------+ + + + + Reason for Visit Evaluate & Treat (Routine) +--------+--------+ + + + + | Status | Reason | Specialty | Diagnoses / | Referred By | Referred To | | | | | Procedures | Contact | Contact | +--------+--------+ + + + + | Closed | | Neurology | Diagnoses | Arley, | Dara, | | | | | Parkinson's | Anthony Pan, | MD Ghassan | | | | | disease | [address] | [address] | | | | | ([facility]) | [address] | [address]IVE [address] | | | | | | [place] | | | | | | [place] [address] | [place] | | | | | | Phone: | [phone] | | | | | | [phone] | Phone: | | | | | | Fax: | [phone] | | | | | | [phone] | Fax: | | | | | | | [phone] | +--------+--------+ + + + + Encounter Details +--------+---------+ + + + | Date | Type | Department | Care Team | Description | +--------+---------+ + + + | 07/12/ | Office | [facility] | Ghassan Diamond, | PD (Parkinson's | | 2020 | Visit | NEUROLOGY [address] | MD Mauricio STEPHENS | disease) ([facility]) | | | | [address] | [address] | (Primary Dx); | | | | [place] | [place] [address] | Cognitive | | | | [address] | [phone] | impairment; Gait | | | | [phone] | | difficulty | +--------+---------+ + + + Social History + +-------+ [...] + + documented as of this encounter Last Filed Vital Signs + + + + + | Vital Sign | Reading | Time Taken | Comments | + + + + + | Blood Pressure | 133/61 | 07/12/2019 9:06 AM | | | | | PST | | + + + + + | Pulse | 64 | 07/12/2019 9:06 AM | | | | | PST | | + + + + + | Temperature | - | - | | + + + + + | Respiratory Rate | - | - | | + + + + + | Oxygen Saturation | 99% | 07/12/2019 9:06 AM | | | | | PST | | + + + + + | Inhaled Oxygen | - | - | | | Concentration | | | | + + + + + | Weight | 77.3 kg (170 lb 6.4 | 07/12/2019 9:06 AM | | | | oz) | PST | | + + + + + | Height | 177.8 cm (5' 10") | 07/12/2019 9:06 AM | | | | | PST | | + + + + + | Body Mass Index | 24.45 | 07/12/2019 9:06 AM | | | | | PST | | + + + + + documented in this encounter Patient Instructions Patient Instructions Ghassan Diamond MD - 07/12/2019 9:15 AM PST1- PD, continue same. 2- Memory: Memory test, mental exercises, labs, and head CT. 3- Balance, walker, physical exercises and think of PT. 4- RTC in 3 months. documented in this encounter Progress Notes Ghassan Diamnod MD - 07/12/2019 9:15 AM PSTFormatting of this note might be different fro m the original. Subjective: Patient ID: Sandi Briceno is a 89 y.o. male. HPI Dear Anthony Tubbs MD. Thank you for asking us to participate in your patient's care. As you know, Sandi Briceno is a 89 y.o. right handed male who presents today for evaluatio n of neurologic concern. New vitis. Previous neurologist: Dr. Baugh. - Onset, context and course: 2015; none; stable. - Localization, quality and severity: Mild action more than resting tremor of hands, slowne ss, and gait problems (shuffling and imbalance). - Duration: - Frequency and last one: - Associated symptoms: Constipation, and cognitive impairment (short term), hard to remembe r names but no problem with findings words, living in a senior community, able to take care of ADL, no problem using a phone. Does not drive. No drooling, or soft voice. Using a walker . - Aggravating factors: None. - Alleviating factors: C/L 25/100 1 tab four times daily. No recent fall. No dysphagia. No hallucination. Incontinence (chronic). H/o syncopal episode in 2019. Prostata cancer. - Previous record/diagnosis and treatment: January,: Anemia and TSh was ok. Last note from August, per Dr. Baugh: PD, on C/L with dyskinesia, using a walker, dose was reduced to one tab four times with goo d results. Current Outpatient Medications: amLODIPine (NORVASC) 10 MG tablet, TK 1 T PO QD, Disp: , Rfl: Ascorbic Acid (VITAMIN C) 500 MG CAPS, Take by mouth., Disp: , Rfl: Calcium Carbonate-Vit D-Min (CALCIUM 1200 PO), Take by mouth., Disp: , Rfl: carbidopa-levodopa (SINEMET) 25-100 mg per tablet, , Disp: , Rfl: losartan (COZAAR) 100 MG tablet, TK 1 T PO ONCE D, Disp: , Rfl: SYMBICORT 160-4.5 MCG/ACT inhaler, , Disp: , Rfl: trospium 20 MG tablet, , Disp: , Rfl: VITAMIN D, CHOLECALCIFEROL, PO, Take by mouth., Disp: , Rfl: Past Medical History: Diagnosis Date Memory disorder Parkinson disease (HCC) FHx: Non contributory. Social History Socioeconomic History Marital status: Spouse name: Not on file Number of children: Not on file Years of education: Not on file Highest education level: Not on file Occupational History Not on file Social Needs Financial resource strain: Not on file Food insecurity: Worry: Not on file Inability: Not on file Transportation needs: Medical: Not on file Non-medical: Not on file Tobacco Use Smoking status: Never Smoker Smokeless tobacco: Former User Substance and Sexual Activity Alcohol use: Not Currently Drug use: Never Sexual activity: Not on file Lifestyle Physical activity: Days per week: Not on file Minutes per session: Not on file Stress: Not on file Relationships Social connections: Talks on phone: Not on file Gets together: Not on file Attends rastafarian service: Not on file Active member of club or organization: Not on file Attends meetings of clubs or organizations: Not on file Relationship status: Not on file Intimate partner violence: Fear of current or ex partner: Not on file Emotionally abused: Not on file Physically abused: Not on file Forced sexual activity: Not on file Other Topics Concern Not on file Social History Narrative Not on file Past medical history, family history and social history were reviewed and updated as beck mahmood. Review of Systems The patient reports activity change, eye redness, shortness breath, constipation, frequency , back pain, lightheadedness, tremors, weakness, bruises, memory loss, decreased concentrati on. All other system were reviewed and are negative. Objective: BP 133/61 | Pulse 64 | Ht 1.778 m (5' 10") | Wt 77.3 kg (170 lb 6.4 oz) | SpO2 99% | B MD 24.45 kg/m Physical Exam Vitals: Vitals: 07/12/19 0906 BP: 133/61 Pulse: 64 PainSc: 0 - No pain General: Well developed, in no acute distress Neck: Supple, unable to appreciate bruits. Heart: S1, S2. Peripheral vascular system: Palpable pulse in upper extremities. Detailed Neurologic Exam Speech: Is fluent with normal naming and repetition. Cognition: The patient is oriented to person, place, and time; recent and remote memory is intact with normal attention and concentration. Able to remember 2/3 items at 5 minutes. Cranial Nerves: At this time, the pupils are equal, round, and reactive to light. Visual fi elds are full to finger confrontation. Extraocular movements are intact. Trigeminal sensatio n is intact. The face is symmetric. Hearing is symmetric bilaterally to fingers rubbing. The palate elevates in the midline. Voice is normal. Shoulder shrug is normal. The tongue has n ormal motion without fasciculations. Coordination: Normal finger to nose. Normal rapid alternating movements. Gait: Short steps. Observation: No asymmetry, with mild action / resting tremor (please see scanned assessment ). Tone: Increased with distraction. Posture: Not quite erect. Strength: Strength is 5-/5 in the upper and lower limbs. Light Touch: Normal light touch sensation in upper and lower extremities. DTR's: Deep tendon reflexes in the upper extremities and knees are normal bilaterally. Assessment: Patient is with: Cousin. Reason for visit: Evaluation and management of new problem, with additional work-up planned . Impression: 1- Parkinsonism, chronic stable with current regimen. 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 3- Imbalance, risk for falls and incontinence. Plan: 1- The differential diagnosis and the necessary work up were discussed with the patient in detail. 2- I will request the previous record (from dr. Baugh) to be sent to my office for review. I reviewed the available medical record and summarized it in my HPI. 3- We discussed the safety issues in detail including safe environment. No recent falls. Us ing a walker. Denied referral to PT. 4- For #1, continue carbidopa levodopa 25 100 mg 1 tablet 4 times daily, good response/dura tion. 5- For #2, head CT scan to rule out structural etiology, labs, memory test, healthy diet an d mental and physical exercises. 6- For #3, head CT scan to rule out structural etiology, labs and physical exercises. 7- I covered with the patient all side effects of the regimen and the interaction with othe r medications. Patient understands and agrees to proceed with the regimen / plan. 8- Risk factors modification per PCP. The patient was instructed to follow up with PCP in r egards to the non neurological symptoms listed on the review of symptoms. 9- RTC in 3 months or prn. However, patient was instructed to call with any concern, if sym ptoms are worsening, not improving or if any side effects related to regimen. Patient was advised to insure that ancillary testing (labs, procedure and imaging) are cove red by insurance before proceeding. documented in this en counter Plan of Treatment + +------+--------+ + + | Name | Type | Priori | Associated Diagnoses | Order Schedule | | | | ty | | | + +------+--------+ + + | Vitamin B-1, Whole | Lab | Routin | Cognitive | 1 Occurrences | | Blood | | e | impairment | starting 07/12/2019 | | | | | | until 07/12/2020 | + +------+--------+ + + | Vitamin B-12 and | Lab | Routin | Cognitive | 1 Occurrences | | Folate | | e | impairment | starting 07/12/2019 | | | | | | until 07/12/2020 | + +------+--------+ + + documented as of this encounter Procedures + +--------+ + + + | Procedure Name | Priori | Date/Time | Associated Diagnosis | Comments | | | ty | | | | + +--------+ + + + | LABS - EXTERNAL SCAN | | 07/14/2019 | | Results for this | | | | 12:00 AM | | procedure are in the | | | | PST | | results section. | + +--------+ + [...] | matter microvascular ischemic gliosis. Signed by: Antoine, | | | Rah Solorzano Sign Date/Time: [...] + + | Yefri, Rad Results In - 08/02/2019 7:27 AM PST | | CT [...] | | | + +---------+ + + LABS - EXTERNAL SCAN (07/14/2019 12:00 AM PST) + + + | Narrative | Performed At | + + + | Ordered by an | | | unspecified provider. | | + + + documented in this encounter Visit Diagnoses + + | Diagnosis | + + | PD (Parkinson's disease) (HCC) - Primary Paralysis agitans | + + | Cognitive impairment Unspecified persistent mental disorders due to conditions | | classified elsewhere | + + | Gait difficulty Abnormality of gait | + + documented in this encounter
--- OUTSIDE RECORDS SUMMARY | ~2020-03-08 | XMS | Encounter Summary ---
Demographics + + + | Address | [address] | | | [place] [address] | + + + | Home Phone | | + + + | Preferred Language | Unknown | + + + | Marital Status | | + + + | Anabaptist Affiliation | Unknown | + + + | Race | White | + + + | Ethnic Group | Not or | + + + Author + + + | Author | [facility] | | | and [place] | + + + | Organization | [facility] | | | and [...] Team Providers + +------+ + | Care Marketing Agent Name | Role | Phone | + +------+ + PCP | Unavailable | + +------+ + Encounter Details +--------+ + + + + | Date | Type | Department | Care Team | Description | +--------+ + + + + | 04/04/ | Orders Only | [facility] | Venus Dos Santos | | | 2016 | | CONVERSION 888 | MD Jewel [address] | | | | | [place] | [address] | | | | | [place] | [place] | | | | | [address] | [address] | | | | | [phone] | [phone] | | | | | | | | +--------+ + + + [...] | + +--------+ + + + | ECHO INTERPRETATION | Routin | 04/04/2016 | | Results for this | | OF OUTSIDE FILMS | e | 5:26 PM | | procedure are in the | | | | PDT | | results section. | + +--------+ + + + documented in this encounter Results ECHO Interpretation of Outside Films (04/04/2016 5:26 PM PDT) + + | Specimen | + + | | + + + + + | Impressions | Performed At | + + + | 1. Left ventricular systolic function is hyperdynamic with an | | | estimated EF of >70%. 2. Pseudonormal LV diastolic filling pattern, | | | consistent with elevated LA pressure and moderate dysfunction (Grade | | | II). 3. The right ventricular systolic function is hyperdynamic. 4. | | | The left atrium is mildly enlarged. 5. No significant valvular | | | abnormality. | | + + + + + + | Narrative | Performed At | + + + | Patient Name: Sandi Briceno Date of : 1930 | | | Performing Physician: SHEILA SOL MD | | | | | | INDICATIONS A-fib CONCLUSIONS 1. Left | | | ventricular systolic function is hyperdynamic with an estimated EF of | | | >70%. 2. Pseudonormal LV diastolic filling pattern, consistent with | | | elevated LA pressure and moderate dysfunction (Grade II). 3. The | | | right ventricular systolic function is hyperdynamic. 4. The left | | | atrium is mildly enlarged. 5. No significant valvular abnormality. | | | FINDINGS -------- ECG rhythm: Sinus rhythm. Study: A 2-dimensional | | | transthoracic echocardiogram with m-mode, spectral and color flow | | | Doppler was perfomed. Study: This was a technically adequate study. | | | Study: Suboptimal image quality - poor subcostal views seconary to | | | patient recent abdominal surgery. Left Ventricle: Left ventricular | | | systolic function is hyperdynamic with an estimated EF of >70%. Left | | | Ventricle: The left ventricle cavity size is normal. Left Ventricle: | | | Left ventricular wall thickness is normal. Left Ventricle: No | | | regional wall motion abnormalities. Left Ventricle: Pseudonormal LV | | | diastolic filling pattern, consistent with elevated LA pressure and | | | moderate dysfunction (Grade II). Right Ventricle: The right ventricle | | | is normal in size. Right Ventricle: The right ventricular systolic | | | function is hyperdynamic. Left Atrium: The left atrium is mildly | | | enlarged. Right Atrium: The right atrium is normal in size. Aortic | | | Valve: Aortic valve is trileaflet and is mildly thickened. Aortic | | | Valve: The aortic valve is mildly calcified. Aortic Valve: Trace | | | amount of aortic regurgitation. Aortic Valve: There is no evidence of | | | aortic stenosis. Mitral Valve: The mitral valve is normal. Mitral | | | Valve: There is trace mitral regurgitation. Mitral Valve: Mild mitral | | | annular calcification present. Tricuspid Valve: The tricuspid valve | | | appears structurally normal. Tricuspid Valve: Trace tricuspid | | | regurgitation present. Tricuspid Valve: There is no evidence of | | | pulmonary hypertension. Tricuspid Valve: The right ventricular | | | systolic pressure (pulmonary artery systolic pressure), as measured by | | | Doppler, is 30.55mmHg. Pulmonic Valve: The pulmonic valve is normal. | | | Pulmonic Valve: Trace pulmonic regurgitation. Pericardium: There | | | is no pericardial effusion. Pericardium: Cannot rule out pleural | | | effusion on image #36. IVC/Hepatic Veins: The IVC was not well | | | visualized. Aorta: The aortic root, ascending aorta and aortic arch | | | are normal. Mass: No mass visualized Thrombus: No clot visualized | | | Thrombus: No vegetation visualized. Septum: No ASD observed. Septum: | | | No VSD observed. MEASUREMENTS Ao asc: 3.30 cm | | | Ao Diam: 3.69 cm Ao sinus: 3.67 cm LA Diam: 4.63 cm LA | | | Major: 5.00 cm EDV(Teich): 115.96 ml IVSd: 1.09 cm LVIDd: | | | 4.95 cm LVPWd: 0.95 cm LVOT Area: 4.23 cm2 LVOT Diam: | | | 2.32 cm %FS: 36.07 % EF(Teich): 65.48 % ESV(Teich): 40.02 | | | ml LVIDs: 3.16 cm SV(Teich): 75.93 ml RA Major: 4.72 cm | | | RVIDd: 3.21 cm LVEF MOD A2C: 66.82 % SV MOD A2C: 69.57 ml | | | LVEF MOD A4C: 67.21 % SV MOD A4C: 68.86 ml EF Biplane: | | | 67.69 % LVEDV MOD BP: 104.66 ml LVESV MOD BP: 33.81 ml LVEDV | | | MOD A2C: 104.11 ml LVLd A2C: 8.66 cm LVEDV MOD A4C: 102.46 | | | ml LVLd A4C: 8.37 cm LVESV MOD A2C: 34.54 ml LVLs A2C: | | | 6.98 cm LVESV MOD A4C: 33.59 ml LVLs A4C: 6.99 cm LAESV(A-L): | | | 77.62 ml LAESV Index (A-L): 37.86 ml/m2 LAAs A2C: 20.23 | | | cm2 LAESV A-L A2C: 73.64 ml LALs A2C: 4.71 cm LAAs A4C: | | | 21.32 cm2 LAESV A-L A4C: 71.46 ml LALs A4C: 5.40 cm AV maxPG: | | | 10.15 mmHg AV meanP.59 mmHg AV Vmax: 1.59 m/s AV | | | Vmean: 0.99 m/s AV VTI: 27.72 cm MICHAEL Vmax: 3.27 cm2 MICHAEL | | | (VTI): 3.61 cm2 AVAI (Vmax): 0.00 cm2/m2 AVAI (VTI): 0.00 | | | cm2/m2 LVOT maxP.05 mmHg LVOT meanP.24 mmHg LVSI | | | Dopp: 48.86 ml/m2 LVSV Dopp: 100.17 ml LVOT Vmax: 1.23 m/s | | | LVOT Vmean: 0.82 m/s LVOT VTI: 23.64 cm MV A Jean: 1.08 m/s | | | MV DecT: 237.64 ms MV E Jean: 1.21 m/s MV E/A Ratio: 1.12 | | | MV PHT: 68.91 ms MVA By PHT: 3.19 cm2 Septal e': 0.06 m/s | | | Septal E/e': 18.47 Lateral e': 0.08 m/s Lateral E/e': | | | 14.37 RAP: 5 mmHg RVSP: 30.55 mmHg TR maxP.55 mmHg | | | TR Vmax: 2.52 m/s Geophysical Party Chief: RACHEL Authenticated by: SHEILA | | | MD EBENEZER Report Date/Time: 04-05-2016 10:43:09 | | + + + + + | Procedure Note | + + | Yefri, Rad Conversion - 01/29/2019 11:12 AM PDT Patient Name: China Briceno of | | : 1930 Performing Physician: SHEILA SOL, | | MD INDICATIONS A | | -fib CONCLUSIONS 1. Left ventricular systolic function is hyperdynamic with an | | estimated EF of >70%.2. Pseudonormal LV diastolic filling pattern, consistent with | | elevated LA pressure and moderate dysfunction (Grade II).3. The right ventricular | | systolic function is hyperdynamic.4. The left atrium is mildly enlarged. 5. No | | significant valvular abnormality. FINDINGS--------ECG rhythm: Sinus rhythm.Study: A | | 2-dimensional transthoracic echocardiogram with m-mode, spectral and color flow Doppler | | was perfomed.Study: This was a technically adequate study.Study: Suboptimal image | | quality - poor subcostal views seconary to patient recent abdominal surgery.Left | | Ventricle: Left ventricular systolic function is hyperdynamic with an estimated EF of | | >70%.Left Ventricle: The left ventricle cavity size is normal.Left Ventricle: Left | | ventricular wall thickness is normal.Left Ventricle: No regional wall motion | | abnormalities.Left Ventricle: Pseudonormal LV diastolic filling pattern, consistent with | | elevated LA pressure and moderate dysfunction (Grade II).Right Ventricle: The right | | ventricle is normal in size.Right Ventricle: The right ventricular systolic function is | | hyperdynamic.Left Atrium: The left atrium is mildly enlarged.Right Atrium: The right | | atrium is normal in size.Aortic Valve: Aortic valve is trileaflet and is mildly | | thickened.Aortic Valve: The aortic valve is mildly calcified.Aortic Valve: Trace amount | | of aortic regurgitation.Aortic Valve: There is no evidence of aortic stenosis.Mitral | | Valve: The mitral valve is normal.Mitral Valve: There is trace mitral | | regurgitation.Mitral Valve: Mild mitral annular calcification present.Tricuspid Valve: | | The tricuspid valve appears structurally normal.Tricuspid Valve: Trace tricuspid | | regurgitation present.Tricuspid Valve: There is no evidence of pulmonary | | hypertension.Tricuspid Valve: The right ventricular systolic pressure (pulmonary artery | | systolic pressure), as measured by Doppler, is 30.55mmHg.Pulmonic Valve: The pulmonic | | valve is normal.Pulmonic Valve: Trace pulmonic regurgitation.Pericardium: There is no | | pericardial effusion.Pericardium: Cannot rule out pleural effusion on image | | #36.IVC/Hepatic Veins: The IVC was not well visualized.Aorta: The aortic root, ascending | | aorta and aortic arch are normal.Mass: No mass visualizedThrombus: No clot | | visualizedThrombus: No vegetation visualized.Septum: No ASD observed.Septum: No VSD | | observed. MEASUREMENTS Ao asc: 3.30 cmAo Diam: 3.69 cmAo sinus: 3.67 | | cmLA Diam: 4.63 cmLA Major: 5.00 cmEDV(Teich): 115.96 mlIVSd: 1.09 cmLVIDd: | | 4.95 cmLVPWd: 0.95 cmLVOT Area: 4.23 [id number] Diam: 2.32 cm%FS: 36.07 %EF(Teich): | | 65.48 %ESV(Teich): 40.02 mlLVIDs: 3.16 cmSV(Teich): 75.93 mlRA Major: 4.72 | | cmRVIDd: 3.21 cmLVEF MOD A2C: 66.82 %SV MOD A2C: 69.57 mlLVEF MOD A4C: 67.21 %SV | | MOD A4C: 68.86 mlEF Biplane: 67.69 %LVEDV MOD BP: 104.66 mlLVESV MOD BP: 33.81 | | mlLVEDV MOD A2C: 104.11 mlLVLd A2C: 8.66 cmLVEDV MOD A4C: 102.46 mlLVLd A4C: | | 8.37 cmLVESV MOD A2C: 34.54 mlLVLs A2C: 6.98 cmLVESV MOD A4C: 33.59 mlLVLs A4C: | | 6.99 cmLAESV(A-L): 77.62 mlLAESV Index (A-L): 37.86 ml/m2LAAs A2C: 20.23 [id number] | | A-L A2C: 73.64 mlLALs A2C: 4.71 cmLAAs A4C: 21.32 [id number] A-L A4C: 71.46 mlLALs | | A4C: 5.40 cmAV maxP.15 mmHgAV meanP.59 mmHgAV Vmax: 1.59 m/Radha Vmean: | | 0.99 m/Radha VTI: 27.72 cmAVA Vmax: 3.27 cm2AVA (VTI): 3.61 [id number] (Vmax): 0.00 | | cm2/m2AVAI (VTI): 0.00 cm2/m2LVOT maxP.05 mmHgLVOT meanP.24 mmHgLVSI | | Dopp: 48.86 ml/m2LVSV Dopp: 100.17 mlLVOT Vmax: 1.23 m/sLVOT Vmean: 0.82 m/sLVOT | | VTI: 23.64 cmMV A Jean: 1.08 m/sMV DecT: 237.64 msMV E Jean: 1.21 m/sMV E/A | | Ratio: 1.12MV PHT: 68.91 msMVA By PHT: 3.19 ed9Fiygig e': 0.06 m/sSeptal E/e': | | 18.47Lateral e': 0.08 m/sLateral E/e': 14.37RAP: 5 mmHgRVSP: 30.55 mmHgTR | | maxP.55 mmHgTR Vmax: 2.52 m/s Geophysical Party Chief: DHAuthenticated by: SHEILA SOL, | | MDReport Date/Time: 04-05-2016 10:43:09 IMPRESSION: 1. Left ventricular systolic | | function is hyperdynamic with an estimated EF of >70%.2. Pseudonormal LV diastolic | | filling pattern, consistent with elevated LA pressure and moderate dysfunction (Grade | | II).3. The right ventricular systolic function is hyperdynamic.4. The left atrium is | | mildly enlarged. 5. No significant valvular abnormality. | |Septum: No VSD observed. | | | |MEASUREMENTS | | | |Ao asc: 3.30 cm | |Ao Diam: 3.69 cm | |Ao sinus: 3.67 cm | |LA Diam: 4.63 cm | |LA Major: 5.00 cm | |EDV(Teich): 115.96 ml | |IVSd: 1.09 cm | |LVIDd: 4.95 cm | |LVPWd: 0.95 cm | |LVOT Area: 4.23 cm2 | |LVOT Diam: 2.32 cm | |%FS: 36.07 % | |EF(Teich): 65.48 % | |ESV(Teich): 40.02 ml | |LVIDs: 3.16 cm | |SV(Teich): 75.93 ml | |RA Major: 4.72 cm | |RVIDd: 3.21 cm | |LVEF MOD A2C: 66.82 % | |SV MOD A2C: 69.57 ml | |LVEF MOD A4C: 67.21 % | |SV MOD A4C: 68.86 ml | |EF Biplane: 67.69 % | |LVEDV MOD BP: 104.66 ml | |LVESV MOD BP: 33.81 ml | |LVEDV MOD A2C: 104.11 ml | |LVLd A2C: 8.66 cm | |LVEDV MOD A4C: 102.46 ml | |LVLd A4C: 8.37 cm | |LVESV MOD A2C: 34.54 ml | |LVLs A2C: 6.98 cm | |LVESV MOD A4C: 33.59 ml | |LVLs A4C: 6.99 cm | |LAESV(A-L): 77.62 ml | |LAESV Index (A-L): 37.86 ml/m2 | |LAAs A2C: 20.23 cm2 | |LAESV A-L A2C: 73.64 ml | |LALs A2C: 4.71 cm | |LAAs A4C: 21.32 cm2 | |LAESV A-L A4C: 71.46 ml | |LALs A4C: 5.40 cm | |AV maxP.15 mmHg | |AV meanP.59 mmHg | |AV Vmax: 1.59 m/s | |AV Vmean: 0.99 m/s | |AV VTI: 27.72 cm | |MICHAEL Vmax: 3.27 cm2 | |MICHAEL (VTI): 3.61 cm2 | |AVAI (Vmax): 0.00 cm2/m2 | |AVAI (VTI): 0.00 cm2/m2 | |LVOT maxP.05 mmHg | |LVOT meanP.24 mmHg | |LVSI Dopp: 48.86 ml/m2 | |LVSV Dopp: 100.17 ml | |LVOT Vmax: 1.23 m/s | |LVOT Vmean: 0.82 m/s | |LVOT VTI: 23.64 cm | |MV A Jean: 1.08 m/s | |MV DecT: 237.64 ms | |MV E Jean: 1.21 m/s | |MV E/A Ratio: 1.12 | |MV PHT: 68.91 ms | |MVA By PHT: 3.19 cm2 | |Septal e': 0.06 m/s | |Septal E/e': 18.47 | |Lateral e': 0.08 m/s | |Lateral E/e': 14.37 | |RAP: 5 mmHg | |RVSP: 30.55 mmHg | |TR maxP.55 mmHg | |TR Vmax: 2.52 m/s | | | |Geophysical Party Chief: RACHEL | |Authenticated by: SHEILA SOL MD | |Report Date/Time: 04-05-2016 10:43:09 | | | |IMPRESSION: | |1. Left ventricular systolic function is hyperdynamic with an estimated EF of >70%. | |2. Pseudonormal LV diastolic filling pattern, consistent with elevated LA pressure and mode rate dysfunction (Grade II). | |3. The right ventricular systolic function is hyperdynamic. | |4. The left atrium is mildly enlarged. 5. No significant valvular abnormality. | + + documented in this encounter Visit Diagnoses Not on filedocumented in this encounter"
--- OUTSIDE RECORDS SUMMARY | ~2020-03-08 | XMS | Encounter Summary ---
Demographics + + + | Address | [address] | | | [place] [address] | + + + | Home Phone | | + + + | Preferred Language | Unknown | + + + | Marital Status | | + + + | Druze Affiliation | Unknown | + + + | Race | White | + + + | Ethnic Group | Not or | + + + Author + + + | Author | [facility] | + + + | Organization | [facility] | + + + | Address | Unknown | + + + | Phone | Unavailable | + + + Support + + + + + | Name | Relationship | Address | Phone | + + + + + | Radha Briceno | DARIANA | [place] | | + + + + + Care Team Providers + +------+ + | Care Disability Representative Name | Role | Phone | + +------+ + PCP | Unavailable | + +------+ + Encounter Details +--------+ + + + + | Date | Type | Department | Care Team | Description | +--------+ + + + + | 03/30/ | Office | [facility] | Note, Outpatient | Progress Note | | 1997 | Visit-Trans | MEDICINE | Clinic | | | | cribed | | | | +--------+ + + [...] + + documented as of this encounter Progress Notes Interface, Segmental Paving Supervisor In - 06/19/2006 1:06 AM PSTCLINIC DATE: 03/30/1998 UROLOGIC ONCOLOGY CLINIC HISTORY: This 67-year-old white male presents for evaluation of elevated serum prostate specific antigen (PSA). During routine examination performed on 03/07/98 the serum PSA was 4.8. A repeat PSA performed on 03/21/98 was 5.6. The free fraction was 7 percent, markedly low for patients with benign disease. Because of these findings, the patient is referred to [facility] Urologic Oncology for evaluation. PAST MEDICAL HISTORY/OPERATIVE PROCEDURES: Partial effusion of right wrist November 1995. 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 MAJOR ILLNESSES: Chronic hypertension. MEDICATIONS: 1. Hydrochlorothiazide 25 mg q.d. 2. Hytrin 10 mg q.d. 3. Zyban 150 mg b.i.d. 4. Aspirin 60 mg q.d. ALLERGIES: No known drug allergies. 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 Tobacco use: The patient uses one can of smokeless tobacco per week for 10 years, none for over 30 years. Alcohol: The patient has 2 or 3 alcoholic beverages per week on a social basis. FAMILY HISTORY: Father at age 86 from a stroke. Mother is age 84, alive and well. He has one brother with a history of colon cancer. REVIEW OF SYSTEMS: Basically noncontributory except for a history of hemorrhoids, mild voiding dysfunction and decreased sexual function. PHYSICAL EXAMINATION: Blood pressure 150/70. Pulse 84. Temperature 96.9 degrees. Weight 211.5 pounds. GENERAL: Well developed, well nourished white male in no acute distress. HEENT: Essentially negative. ABDOMEN: Benign. GENITALIA: Both testes descended without masses. Penis normal. Digital rectal examination reveals prostate is slightly enlarged on the right in comparison to the left but no distinct nodule is identified. IMPRESSION: Elevated serum prostate specific antigen in patient with a palpable abnormality of the prostate. PLAN: After discussion with the patient and his , he was advised to consider a transrectal ultrasound and biopsy of the prostate. He agreed to this, and decided to have this performed at this time. A pre biopsy urinalysis showed no evidence of infection and the patient received Trovan 200 mg p.o. before the biopsy. Following this, the patient was prepped and draped in the usual fashion and a transrectal ultrasound was performed. This demonstrated 25.2 gram prostate with no evidence of hypoechoic areas, though there was one slight area of density on the right base in comparison to the left. No other lesions or abnormalities were identified and biopsies were then obtained from the right and left base, mid and apical portions of the prostate. The patient tolerated the procedure well and was instructed to engage in no heavy physical exercise for 24 hours, to take excessive fluids for 24 hours and to avoid aspirin for 24 hours. He was also instructed to return to clinic or call for fever over 101 degrees or significant bleeding with clots. He will be notified of the results when they are available and take one further Trovan in the morning and evening tomorrow. Manjit Hammer M.D[facility] Chief, Urologic Oncology BL/lr cc: DERIK GARCIA MD [address] [place] [address] [address] [place] [id number] signed by Interface, Segmental Paving Supervisor In at 06/19/2006 1:06 AM PSTdocumented in this encounter Plan of Treatment Not on filedocumented as of this encounter Visit Diagnoses Not on filedocumented in this encounter"
--- OUTSIDE RECORDS SUMMARY | ~2020-03-08 | XMS | Encounter Summary ---
Demographics + + + | Address | [address] | | | [place] [address] | + + + | Home Phone | | + + + | Preferred Language | Unknown | + + + | Marital Status | | + + + | Baptist Affiliation | Unknown | + + + | Race | White | + + + | Ethnic Group | Not or | + + + Author + + + | Author | [facility] | + + + | Organization | [facility] | + + + | Address [...] Team Providers + +------+ + | Care Wreath And Garland Maker Name | Role | Phone | + +------+ + PCP | Unavailable | + +------+ + Encounter Details +--------+ + + + + | Date | Type | Department | Care Team | Description | +--------+ + + + + | 07/12/ | Office | [facility] | Note, Outpatient | Progress Note | | 2000 | Visit-Trans | MEDICINE | Clinic | [...] as of this encounter Progress Notes Interface, Unit Support Representative In - 05/07/2006 1:09 AM PSTCLINIC DATE: 07/12/1999 UROLOGY CLINIC HISTORY: The patient returns at this time for followup, given the significant elevation of PSA. In March 1998, the patient's PSA was 5.6 with a free fraction of 7%. Biopsy performed at that time revealed chronic prostatitis and acute prostatitis but no evidence of cancer. A repeat PSA in March 1999 was 6.7 with a free fraction not done. A repeat serum PSA on June 19, 1999, was 7.1 with a free fraction of 10%. Given in the patient's history and findings on the previous biopsy there is a some concern that a malignancy in the prostate is present. However, with the diagnosis of prostatitis there is some concern that an inflammatory response of the prostate may be the source of the patient's elevated PSA. IMPRESSION: Continued increasing serum prostate specific antigen (PSA) in a patient with the diagnosis of acute and chronic prostatitis. PLAN 1. Digital rectal examination done today revealed no definite nodules. Therefore, we will observe rather than biopsy immediately. 2. Ciprofloxacin 500 mg p.o. b.i.d. for 30 days. 3. PSA after completion of the ciprofloxacin. If this is significantly elevated, then we will repeat biopsy. If not, we will follow the patient with annual PSA. Manjit Hamemr M.D. / [id number] / [id number] / [id number] / [id number] cc: Jovanny Guevara M.D. [address] [place] [id number] signed by Interface, Unit Support Representative In at 05/07/2006 1:0 9 AM PSTdocumented in this encounter Plan of Treatment Not on filedocumented as of this encounter Visit Diagnoses Not on filedocumented in this encounter"
--- OUTSIDE RECORDS SUMMARY | ~2020-03-08 | XMS | Encounter Summary ---
Demographics + + + | Address | [address] | | | [place] [address] | + + + | Home Phone | | + + + | Preferred Language | Unknown | + + + | Marital Status | | + + + | Judaism Affiliation | Unknown | + + + | Race | White | + + + | Ethnic Group | Not or | + + + Author + + + | Author | [facility] | | | and [place] | + + + | Organization | [facility] | | | [...] Team Providers + +------+ + | Care Funeral Director And Embalmer Name | Role | Phone | + +------+ + PCP | Unavailable | + +------+ + Encounter Details +--------+ + + + + | Date | Type | Department | Care Team | Description | +--------+ + + + + | 08/21/ | [facility] | [facility] | Colin Alvares MD | | | 2006 | Encounter | RADIATION ONCOLOGY | | | | | | [address] [facility] | | | | | | [address] [place], [place] | | | | | | [address] | | | | | | [phone] | | | +--------+ + + + [...]
--- OUTSIDE RECORDS SUMMARY | ~2020-03-08 | XMS | Clinical Summary ---
Demographics + + + | Address | [address] | | | [place] [address] | + + + | Home Phone | | + + + | Preferred Language | Unknown | + + + | Marital Status | | + + + | Christianity Affiliation | Unknown | + + + [...] Team Providers + +------+ + | Care Foreign Languages Department Chair Name | Role | Phone | + +------+ + PCP | Unavailable | + +------+ + Source Comments NOAH is fully live on both [facility] and [facility] InPatient.[facility] Allergies Not on File Medications Not on file Active Problems Not [...] on file | | + + + Last Filed Vital Signs Not on file Plan of Treatment + + +-------+ + | Health Maintenance | Due Date | Last | Comments | | | | Done | | + + +-------+ + | Pneumococcal | | | | | vaccination (1 of 1 | 8 | | | | - PPSV23) | | | | + + +-------+ + | Influenza (Flu) | | | | | vaccination (#1) | 0 | | | + + +-------+ + Results Not on filefrom Last 3 Months"
--- OUTSIDE RECORDS SUMMARY | ~2020-03-08 | XMS | Encounter Summary ---
Demographics + + + | Address | [address] | | | [place] [address] | + + + | Home Phone | | + + + | Preferred Language | Unknown | + + + | Marital Status | | + + + | Roman Catholic Affiliation | Unknown | + + + | Race | White | + + + | Ethnic Group | Not or | + + + Author + + + | Author | [facility] | | | and [place] | + + + | Organization | [facility] | | | [...] Team Providers + +------+ + | Care Counterperson Name | Role | Phone | + +------+ + | Anthony Tubbs MD | PCP | | + +------+ + Reason for Visit +---------+--------+ + | Reason | Onset | Comments | | | Date | | +---------+--------+ + | Imaging | 07/28/ | | | | 2020 | | +---------+--------+ + Encounter Details +--------+ + + + + | Date | Type | Department | Care Team | Description | +--------+ + + + + | 07/28/ | Telephone | [facility] | Ghassan Diamond, | Imaging | | 2019 | | NEUROLOGY [address] | MD [address] | | | | | [address] | [address]IVE [facility] [address] | | | | | [place], [place] | [place] [address] | | | | | [address] | [phone] | | | | | [phone] | | | +--------+ + + + [...] this encounter Miscellaneous Notes Telephone Encounter - Steff Jacobson, Security Coordinator - 07/28/2019 2:57 PM PSTVenkata escalante central scheduling # to make appt elephone Encounter - Nat Dudley - 07/28/2019 2 :06 PM PSTMarion, is calling regarding Imaging and would like a call back. Additional Call Details: Calling to confirm if CT scan was ordered. Please call the home isaura gonzalez listed If this is a symptom based call, was patient offered triage? Not Applicable If this is a symptom based call and you were unable to immediately transfer the call to a claribel hamilton senior application software engineer was caller made aware that if at any time he feels it is an emergency they keyla uld call 911 or go to the nearest emergency room? not applicable documented in this encounter Plan of Treatment Not on filedocumented as of this encounter Visit Diagnoses Not on filedocumented in this encounter"
--- OUTSIDE RECORDS SUMMARY | ~2020-03-08 | XMS | Clinical Summary ---
Demographics + + + | Address | [address] | | | [place] [address] | + + + | Home Phone | | + + + | Preferred Language | Unknown | + + + | Marital Status | | + + + | Amish Affiliation | Unknown | + + + | Race | White | + + + | Ethnic Group | Not or | + + + Author + + + | Author | [facility] | | | and [place] | + + + | Organization | [facility] | | | and [...] Team Providers + +------+ + | Care Packing Line Operator Name | Role | Phone | + +------+ + | Anthony Tubbs MD | PCP | | + +------+ + Allergies No Known Allergies Medications + + + +---------+------+------+-------+ | Medication | Sig | Dispensed | Refills | Star | End | Statu | | | | | | t | Date | s | | | | | | Date | | | + + + +---------+------+------+-------+ | trospium 20 MG | | | 0 | 01/2 | | Activ | | tablet | | | | 5/20 | | e | | | | | | 20 | | | + + + +---------+------+------+-------+ | amLODIPine | TK 1 T PO QD | | 0 | 10/2 | | Activ | | (NORVASC) 10 MG | | | | 8/20 | | e | | tablet | | | | 19 | | | + + + +---------+------+------+-------+ | losartan (CARLAZAAR) | TK 1 T PO ONCE D | | 0 | 10/2 | | Activ | | 100 MG tablet | | | | 8/20 | | e | | | | | | 19 | | | + + + +---------+------+------+-------+ | SYMBICORT 160-4.5 | | | 0 | 12/1 | | Activ | | MCG/ACT inhaler | | | | 6/20 | | e | | | | | | 19 | | | + + + +---------+------+------+-------+ | Calcium | Take by mouth. | | 0 | | | Activ | | Carbonate-Vit D-Min | | | | | | e | | (CALCIUM 1200 PO) | | | | | | | + + + +---------+------+------+-------+ | Ascorbic Acid | Take by mouth. | | 0 | | | Activ | | (VITAMIN C) 500 MG | | | | | | e | | CAPS | | | | | | | + + + +---------+------+------+-------+ | VITAMIN D, | Take by mouth. | | 0 | | | Activ | | CHOLECALCIFEROL, PO | | | | | | e | + + + +---------+------+------+-------+ | carbidopa-levodopa | take 1 tablet by | 120 | 3 | 06/1 | | Activ | | (SINEMET) 25-100 mg | mouth four times a | tablet | | 5/20 | | e | | per tablet | day | | | 20 | | | + + + +---------+------+------+-------+ Active Problems Not on file Family History + +------+ + + | Relation | Name | Status | Comments | + +------+ + + | Father | | | | + +------+ + + | Mother | | | | + +------+ + + Social History + +-------+ +--------+------+ [...] + + + Last Filed Vital Signs + + + [...] | | + + + + + Plan of Treatment + + + + + | Health Maintenance | Due Date | Last | Comments | | | | Done | | + + + + + | Med Mgmt: Cr | | | | | | 3 | | | + + + + + | Med Mgmt: K | | | | | | 3 | | | + + + + + | Medication | | | | | Management | 3 | | | + + + + + | Vaccine: | | | | | Dtap/Tdap/Td (1 - | 2 | | | | Tdap) | | | | + + + + + | Vaccine: | | | | | Pneumococcal 65+ (1 | 8 | | | | of 1 - PPSV23) | | | | + + + + + | Vaccine: Zoster (2 | | 03/13/20 | | | of 3) | 7 | 07 | | + + + + + | Adult Annual | | | | | Wellness Visit | 9 | | | + + + + + | Vaccine: Influenza | | 02/24/20 | | | (#1) | 0 | 19, | | | | | 02/05/20 | | | | | 18, | | | | | 01/21/20 | | | | | 17, | | | | | Addition | | | | | al | | | | | history | | | | | exists | | + + + + + Results Not on filefrom Last 3 Months Insurance + +--------+ +--------+ +---------+--------+ | Payer | Benefi | Subscriber | Effect | Phone | Address | Type | | | t Plan | ID | matthew | | | | | | / | | Dates | | | | | | Group | | | | | | + +--------+ +--------+ +---------+--------+ | MEDICARE | MEDICA | [id number] | 06/09/19 | [phone] | | Medica | | | RE | | 00-Pre | 5 | | re | | | PART A | | sent | | | | | | AND B | | | | | | + +--------+ +--------+ +---------+--------+ | BCBS | BCBS | [id number] | 06/09/19 | | | Indemn | | | OOS | 7 | 11-Pre | | | ity | | | MDCR | | sent | | | | | | SUPPL | | | | | | + +--------+ +--------+ +---------+--------+ + +--------+ +--------+ + + | Guarantor Name | Accoun | Relation to | Date | Phone | Billing Address | | | t Type | Patient | of | | | | | | | | | | + +--------+ +--------+ + + | Sandi Briceno | Person | Self | [birth year] | [address] | | | al/Fam | | 1931 | [phone] | [place] | | | samantha | | | [address] (Home) | [phone] | + +--------+ +--------+ + + Advance Directives + + + + + | Type | Date Recorded | Patient | Explanation | | | | Fashion Buyer | | + + + + + | Power of | | | | | Filing Machine Operator | | | | + + + + + | Advance | | | | | Directive | | | | + + + + +
--- OUTSIDE RECORDS SUMMARY | ~2020-03-08 | XMS | Encounter Summary ---
Demographics + + + | Address | [address] | | | [place] [address] | + + + | Home Phone | | + + + | Preferred Language | Unknown | + + + | Marital Status | | + + + | Druze Affiliation | Unknown | + + + | Race | White | + + + | Ethnic Group | Not or | + + + Author + + + | Author | [facility] | | | and [place] | + + + | Organization | [facility] | | | [...] Team Providers + +------+ + | Care Corsage Maker Name | Role | Phone | + +------+ + PCP | Unavailable | + +------+ + Encounter Details +--------+ + + + + | Date | Type | Department | Care Team | Description | +--------+ + + + + | 08/20/ | Hospital | [facility] | Colin Alvares MD | | | 2006 | Encounter | SYSTEM GENERIC OP | | | | | | CONVERSION [address] | | | | | | [address] [place], [place] | | | | | | [address] | | | | | | [phone] | | | +--------+ + + + [...]
--- OUTSIDE RECORDS SUMMARY | ~2020-03-08 | XMS | Encounter Summary ---
Demographics + + + | Address | [address] | | | [place] [address] | + + + | Home Phone | | + + + | Preferred Language | Unknown | + + + | Marital Status | | + + + | Shinto Affiliation | Unknown | + + + | Race | White | + + + | Ethnic Group | Not or | + + + Author + + + | Author | [facility] | + + + | Organization | [facility] | + + + | Address [...] Team Providers + +------+ + | Care Debug Technician Name | Role | Phone | + +------+ + PCP | Unavailable | + +------+ + Encounter Details +--------+ + + + + | Date | Type | Department | Care Team | Description | +--------+ + + + + | 03/30/ | Results | LAB CORE [address] | M[place], Faculty | | | 1997 | Only | [address] | [phone] | | | | | [place], [place] | | | | | | [address] | | | | | | [phone] | | | +--------+ + + + [...] | + +--------+ + + + | SURGICAL PATHOLOGY | Routin | 03/30/1998 | | Results for this | | | e | | | procedure are in the | | | | | | results section. | + +--------+ + + + documented in this encounter Results SURGICAL PATHOLOGY (03/30/1998) + + + + + + | Component | Value | Ref Range | Performed | Pathologist | | | | | At | Signature | + + + + + + | SURGICAL | SOURCE OF SPECIMEN: SEE | | [facility] | | | PATHOLOGY | RESULTS | | DEPARTMENT | | | | Preliminary | | OF | | | | History:CLINICAL HISTORY | | PATHOLOGY | | | | Patient Age: 67 | | | | | | year old male. | | | | | | Patient History: | | | | | | Elevated PSA at 5.6. | | | | | | Here for prostatic | | | | | | biopsy. GROSS | | | | | | DESCRIPTION | | | | | | Specimens received: 6 | | | | | | in formalin. #1 | | | | | | RIGHT BASE: The specimen | | | | | | consists of two | | | | | | cylindrical fragments | | | | | | oftan, soft, needle core | | | | | | biopsy tissue measuring | | | | | | 0.1 to 2.3 cm in length | | | | | | x0.1 cm in diameter. | | | | | | #2 RIGHT MID: The | | | | | | specimen consists of two | | | | | | fragments of isidro, | | | | | | soft,needle core biopsy | | | | | | tissue measuring 0.2 to | | | | | | 1.9 cm in length x 0.1 | | | | | | cm indiameter. #3 | | | | | | LEFT BASE: The specimen | | | | | | consists of one fragment | | | | | | of isidro, soft, | | | | | | needlecore biopsy tissue | | | | | | measuring 1.7 cm in | | | | | | length x 0.4 cm in | | | | | | diameter. #4 LEFT | | | | | | MID: The specimen | | | | | | consists of one fragment | | | | | | of isidro, soft, | | | | | | needlecore biopsy tissue | | | | | | measuring 1.8 cm in | | | | | | length x 0.1 cm in | | | | | | diameter. #5 RIGHT | | | | | | APEX: The specimen | | | | | | consists of two | | | | | | fragments of isidro, | | | | | | soft,needle core biopsy | | | | | | tissue measuring 0.3 cm | | | | | | to 1.6 cm in length x | | | | | | 0.1 cmin diameter. | | | | | | #6 LEFT APEX: The | | | | | | specimen consists of | | | | | | three fragments of isidro, | | | | | | soft,needle core biopsy | | | | | | tissue measuring 0.3 cm | | | | | | to 1.1 cm in length x | | | | | | 0.1 cmin diameter. | | | | | | CASSETTE | | | | | | INDEX:#1 RIGHT BASE:1, | | | | | | wrapped, TS.#2 RIGHT | | | | | | MID:2, wrapped, TS.#3 | | | | | | LEFT BASE:3, wrapped, | | | | | | TS.#4 LEFT MID:4, | | | | | | wrapped, TS.#5 RIGHT | | | | | | APEX:5, wrapped, TS.#6 | | | | | | LEFT APEX:6, wrapped, | | | | | | TS. All tissue | | | | | | sections taken are | | | | | | submitted for | | | | | | microscopic | | | | | | evaluation.SP:AH:CM:tm | | | | | | FINAL DIAGNOSIS#1 | | | | | | RIGHT BASE: PROSTATIC | | | | | | TISSUE WITH NO EVIDENCE | | | | | | OF MALIGNANCY#2 RIGHT | | | | | | MID: FOCAL ACUTE | | | | | | PROSTATITIS WITH NO | | | | | | EVIDENCE OF MALIGNANCY#3 | | | | | | LEFT BASE: FOCAL | | | | | | ACUTE PROSTATITIS WITH | | | | | | NO EVIDENCE OF | | | | | | MALIGNANCY#4 LEFT MID: | | | | | | FOCAL ACUTE | | | | | | PROSTATITIS WITH NO | | | | | | EVIDENCE OF MALIGNANCY#5 | | | | | | RIGHT APEX: FOCAL | | | | | | ACUTE PROSTATITIS WITH | | | | | | NO EVIDENCE OF | | | | | | MALIGNANCY#6 LEFT APEX: | | | | | | FOCAL ACUTE | | | | | | PROSTATITIS WITH NO | | | | | | EVIDENCE OF MALIGNANCY | | | | | | Case reviewed by: | | | | | | Rocky Winslow, Student | | | | | | FellowCase staffed by: | | | | | | Margarito Bauer, | | | | | | M.D. :tg | | | | | | My electronic signature | | | | | | indicates that I have | | | | | | personally reviewed | | | | | | alldiagnostic slides, | | | | | | the gross and/or | | | | | | microscopic portion of | | | | | | thisreport and | | | | | | formulated the final | | | | | | diagnosis. | | | | + + + + + + + + | Specimen | + + | Other | + + + + + + + | Performing | Address | City/State/Zipcode | Phone Number | | Organization | | | | + + + + + | [facility] | [address] | [place] [address] | | | PATHOLOGY | [address] | | | + + + + + documented in this encounter Visit Diagnoses Not on filedocumented in this encounter"
--- OUTSIDE RECORDS SUMMARY | ~2020-03-08 | XMS | Encounter Summary ---
Demographics + + + | Address | [address] | | | [place] [address] | + + + | Home Phone | | + + + | Preferred Language | Unknown | + + + | Marital Status | | + + + | Rastafarian Affiliation | Unknown | + + + [...] Team Providers + +------+ + | Care Field Artillery Officer Name | Role | Phone | + +------+ + | Anthony Tubbs MD | PCP | | + +------+ + Reason for Visit + + + | Reason | Comments | + + + | Medication Refill | | + + + Encounter Details +--------+--------+ + + + | Date | Type | Department | Care Team | Description | +--------+--------+ + + + | 11/21/ | Refill | [facility] | Ghassan Diamond, | Medication Refill | | 2020 | | NEUROLOGY [address] | MD [address] | | | | | [address] | [address]IVE [facility] [address] | | | | | [place], [place] | [place] [address] | | | | | [address] | [phone] | | | | | [phone] | | | +--------+--------+ + + + Social History + +-------+ [...] this encounter Miscellaneous Notes Telephone Encounter - Zoila Myers Medical Assistant - 11/22/2019 11:54 AM PDTL ast visit: 07/12/2019 Next visit:none schedule-10/27/2019 no show Last filled: 07/12/2019 Number of refills: 3 Per last note: For #1, continue carbidopa levodopa 25 100 mg 1 tablet 4 times daily, good response/hever mcdermott P DTdocumented in this encounter Plan of Treatment Not on filedocumented as of this encounter Visit Diagnoses Not on filedocumented in this encounter"
--- OUTSIDE RECORDS SUMMARY | 2020-03-08 11:06 | XMS ---
PreManage Notification: KELLY EARLY Security Mobile Sales Assistant Events No recent Security Events currently on file CRITERIA MET - [facility] - 2 Visits in 30 Days CARE PROVIDERS FISH ALLRED Internal Medicine 08/19/2019-Current PHONE: Unknown Helen has no Care Guidelines for this patient. Care History Medical/Surgical 08/19/2019 [facility] - Patient is currently established with [facility]. If patient is seen in the ED during business hours. Please contact CHWs at [facility]. Care Recommendation: If this patient has had [...] providing care. E.D. VISIT COUNT (12 MO.) 6 [facility] TOTAL 6 NOTE: Visits indicate total known visits. ED/UCC VISIT TRACKING (12 MO.) 03/08/2020 11:00 [facility] [place] TYPE: Emergency COMPLAINT: - RECTAL BLEEDING 03/07/2020 18:35 [facility] [place] TYPE: Emergency COMPLAINT: - RECTAL BLEEDING 03/05/2020 08:07 [facility] [place] TYPE: Emergency COMPLAINT: - WEAKNESS DIAGNOSES: - Constipation, unspecified - Chronic obstructive pulmonary disease, unspecified - Parkinson's disease - Urinary tract infection, site not specified - Other usp (current) drug therapy - Weakness 03/04/2020 07:40 [facility] [place] TYPE: Emergency COMPLAINT: - WEAKNESS DIAGNOSES: - Parkinson's disease - Other intermediate designer (current) drug therapy - Localized edema - Chronic obstructive pulmonary disease, unspecified - Retention of urine, unspecified - Other difficulties with micturition 08/18/2019 22:20 [facility] [place] TYPE: Emergency COMPLAINT: - FALL 08/14/2019 16:25 [facility] [place] TYPE: Emergency COMPLAINT: - WEAKNESSR DIAGNOSES: - Chronic obstructive pulmonary disease, unspecified - Other usp (current) drug therapy - Weakness - Dehydration - prison (current) use of aspirin - Parkinson's disease INPATIENT VISIT TRACKING (12 MO.) 08/18/2019 22:[address] [facility] [place] TYPE: Observation COMPLAINT: - CHEST TRAUMA DIAGNOSES: - Dizziness and giddiness - Unspecified fall, initial encounter - Fracture of other part of scapula, left shoulder, initial enc - Parkinson's disease - Other intermediate designer (current) drug therapy - Traumatic pneumothorax, initial encounter - Chronic obstructive pulmonary disease, unspecified - Multiple fractures of ribs, left side, initial encounter for [id number]
[2020-03-08] MEDS ORDERED: K-TAB ER20 MEQ PO (13:45)
== END 2020-03-08 13:54 | disposition home or self-care (01) ==
LOC: ED 10:59
DX: E87.6 Hypokalemia (principal); K92.1 Melena; G20 Parkinson's disease; J44.9 Chronic obstructive pulmonary disease, unspecified; Z79.899 Other long term (current) drug therapy
CPT/HCPCS: 80053; 85025; 85610; 85730; 99285

== ENCOUNTER 2020-07-31 02:37 | Inpatient (IN) | payer MEDICARE, BC ==
[~2020-07-31] VITALS: Ht 182.9 cm; Wt 83.1 kg
[~2020-07-31 02:37] MED LIST changes: +K-TAB ER20 MEQ PO
--- OUTSIDE RECORDS SUMMARY | 2020-07-31 02:40 | XMS ---
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 Care History Medical/Surgical 03/09/2020 [facility] Patient having syncope and seeing blood in stool.\T\nbsp; Dr. Tubbs has sent referral to Dr. Evangelista. 08/19/2019 [facility] - Patient is currently established with [facility]. If patient is seen in the ED during business hours. Please contact CHWs at [facility]. Care Recommendation: If this patient [...] providing care. E.D. VISIT COUNT (12 MO.) [address] [facility] TOTAL 7 NOTE: Visits indicate total known visits. ED/UCC VISIT TRACKING (12 MO.) 07/31/2020 02:38 [facility] [place] TYPE: Emergency COMPLAINT: - CONSTIPATION 03/08/2020 11:00 [facility] [place] TYPE: Emergency COMPLAINT: - WEAK DIAGNOSES: - Hypokalemia - Melena - Chronic obstructive pulmonary disease, unspecified - Other buttermaker continuous churn (current) drug therapy - Parkinson's disease - Weakness 03/07/2020 18:35 [facility] [place] TYPE: Emergency COMPLAINT: - RECTAL BLEEDING DIAGNOSES: - Hemorrhage of anus and rectum - Chronic obstructive pulmonary disease, unspecified - Other senior care (current) drug therapy - Parkinson's disease 03/05/2020 08:07 [facility] [place] TYPE: Emergency COMPLAINT: - WEAKNESS DIAGNOSES: - Constipation, unspecified - Chronic obstructive pulmonary disease, unspecified - Parkinson's disease - Urinary tract infection, site not specified - Other senior care (current) drug therapy - Weakness 03/04/2020 07:40 [facility] [place] TYPE: Emergency COMPLAINT: - WEAKNESS DIAGNOSES: - Parkinson's disease - Other buttermaker continuous churn (current) drug therapy - Localized edema - Chronic obstructive pulmonary disease, unspecified - Retention of urine, unspecified - Other difficulties with micturition 08/18/2019 22:20 [facility] [place] TYPE: Emergency COMPLAINT: - FALL 08/14/2019 16:25 [facility] [place] TYPE: Emergency COMPLAINT: - WEAKNESSR DIAGNOSES: - Chronic obstructive pulmonary disease, unspecified - Other senior care (current) drug therapy - Weakness - Dehydration - moth exterminator (current) use of aspirin - Parkinson's disease INPATIENT VISIT TRACKING (12 MO.) 08/18/2019 22:21 [facility] [place] TYPE: Observation COMPLAINT: - CHEST TRAUMA DIAGNOSES: - Dizziness and giddiness - Unspecified fall, initial encounter - Fracture of other part of scapula, left shoulder, initial encounter for closed fracture - Parkinson's disease - Other senior care (current) drug therapy - Traumatic pneumothorax, initial encounter - Chronic obstructive pulmonary disease, unspecified - Multiple fractures of ribs, left side, initial encounter for closed fracture [email or web address]
--- NOTE | 2020-07-31 05:37 | NUR ---
pt ARRIVED TO THE FLOOR VIA ED STRETCHER, ELECTRIC TAPE SLITTER MANDY IN ROOM AND COMPLETING QUICK ADMIT AT THIS TIME.
--- NOTE | 2020-07-31 06:56 | NUR ---
ASSESSMENT COMPLETE, IV FLUIDS INFUSING. SITE WNL. ENEMA PROCEDURE EXPLAINED TO pt, pt VERBALIZED UNDERSTANDING. WATER TAP ENEMA 1 OF 2 COMPLETE, LITTLE STOOL OUTPUT NOTED. pt UNABLE TO HOLD ENEMA CONTENTS WELL. WILL MONITOR. pt ORIENTED TO ROOM, BLE ELEVATED WITH PILLOWS X2. NO FURTHER NEEDS, CALL LIGHT IN REACH.
--- NOTE | 2020-07-31 07:45 | NUR ---
REPORT RECIEVED FROM NIGHT RN AND PT. CARE RESUMED. PT. DENIES PAIN AT REST AND STATES HE IS HUNGRY. PT. ALERT AND ORIENTED. PT. HAD A SMALL SMEAR OF BM AND ATTENDS CHANGED. BOWEL TONES ACTIVE AND ABDOMEN TENDER TO PALPATION. IV SITE WNL AND FLUSHED WELL. LUNGS CLEAR. +2 PITTING EDEMA BLE THAT IS WEEPING. PT. STATES HE HAS HAD EDEMA FOR 2 WEEKS AND HAS NOT BEEN DIAGNOSED WITH CARDIAC ISSUES. LEGS ARE STIFF AND HARD TO REPOSITION. DISCUSSED PLAN TO ASSIST WITH REPOSITIONING AND ADMIN. AN ENEMA THIS A.M. PT LEFT RESTING IN BED WITH CALL LIGHT IN REACH.
--- NOTE | 2020-07-31 09:30 | NUR ---
PATIENT ADMIN. TAP WATER ENEMA. TOLERATED WELL AND HAD A MEDIUM, LOOSE BM. PT. CLEANED AND ATTENDS, CHUX REPLACED. PT. LEFT RESTING WITH CALL LIGHT IN REACH.
--- NOTE | 2020-07-31 09:50 | NUR ---
Pt lives at [facility], independent living. Pt uses a electric scooter in his room and and electric wc to get to communal meals. He hires help to shower, do his laundry, and his medications. Pt has times of confusion. He has two friends who assist him when needed. Pt does not drive and is transported when needing to go out. Pt uses a wc and is able to pivot transfer. Plans on return to [facility] when discharged. Pt denies any financial issues and states he is financial sound.
[2020-07-31] MEDS ORDERED: BUDESONIDE-FO10.2 G1 INH (10:10)
[2020-07-31] MEDS ORDERED: AMLODIPINE BESYL5 MG PO (10:11)
--- NOTE | 2020-07-31 10:30 | NUR ---
PT. DIGITALLY DISIMPACTED. SMALL AMOUNT OF SOFT STOOL REMOVED. PT. HAD A SMALL, LOOSE BM AFTER. PT. LEFT RESTING IN BED WITH CALL LIGHT IN REACH.
--- NOTE | 2020-07-31 12:42 | NUR ---
PT ALERT, ORIENTED AND TRYING TO EAT JELLO. PT EXPRESSED FRUSTRATION AT TREMORS THAT ARE MAKING IT DIFFICULT TO HIT HIS MOUTH WITH THE JELLO. I SENSED PTS' FRUSTRATION.FELT HE NEEDED TO EAT ALONE FOR THE MOMENT GAVE BLESSING, AND WILL RETURN.
--- NOTE | 2020-07-31 13:00 | NUR ---
[facility] CALLED AND STATED THE PATIENT HAD CALLED TO NOTIFY THEM HE WAS BEING DISCHARGED. MARIN LEIVA CHECKED ON PT. AND FOUND HE HAD HAD A LARGE, INCONTINENT BM. PT. CONFUSED AND NOT ORIENTED. REORIENTED BY RN. PT. HAD PULLED OUT IV AND CATH WAS INTACT. 2 RN'S CLEANED AND CHANGED PT. ATTENDS. DR. CANDELARIO IN TO SEE PT. PT. GIVEN P.O. MEDS. PT. LEFT RESTING WITH CHAIR ALARM ON.
--- NOTE | 2020-07-31 16:37 | NUR ---
PATIENT CHAIR ALARM GOING OFF. PT. WAS ATTEMPTING TO STANDUP AND HAD REMOVED HIS PARTIAL DENTURES. PARTIALS PLACED. IN DENTURE CUP AND SOAKED. PT. CONFUSED AND MUMBLING. HE WAS SEARCHING FOR SOMETHING ON THE FLOOR BUT MUMBLED INCOHERENTLY. PT. TRIED USING URINAL TO VOID, BUT COULD NOT. PT. REORIENTED AND LEFT RESTING IN CHAIR WITH CHAIR ALARM ON.
--- NOTE | 2020-07-31 17:30 | NUR ---
PT. COULD NOT VOID THROUGHOUT THE SHIFT AND NOTIFIED. DR. CANDELARIO ORDERED CONTRERAS CATHETER PLACED AND MAG. CITRATE. CONTRERAS INSERTED BY THIS NURSE WITH VISCOUS LIDOCAINE USED AND PT. TOLERATED WELL. INFLATED WITH 10ML SALINE. 350ML DARK [place] URINE EMPTIED. IV ATTEMPTED 6 TIMES BY 3 RNS. 20G IV PLACED IN RIGHT FOREARM WHICH FLUSHED WELL AND HAD BLOOD RETURN. IVF STARTED BACK AT 85ML/HR AND ABX STARTED. PT. IS STILL CONFUSED AND MORE AGGITATED. HE STATES HE WOULD LIKE TO LEAVE AND WANTS HIS SHOES. PT. REORIENTED AND ASKED WHY HE WANTS TO LEAVE. STATED HE NEEDED TO GET HIS THINGS. PT. REORIENTED. PT. LEFT RESTING IN BED WITH BED ALARM ON AND CURTAIN OPEN.
--- NOTE | 2020-07-31 19:05 | NUR ---
RECEIVED REPORT FROM ELLIOT SAUNDERS. pt RESTING IN BED. BED ALARM ON. CURTAIN OPEN TO NURSES STATION. WHITEBOARD UPDATED.
--- NOTE | 2020-07-31 19:43 | NUR ---
WOKE PT TO SCAN ARM BAND, FOR NEW FLUIDS. PT WITH NO NEEDS.
--- NOTE | 2020-07-31 20:35 | NUR ---
IN TO DO ASSESSMENT. pt CONFUSED ABOUT WHERE HE IS STATED "I DON'T KNOW" AFTER BEING REORIENTED HE SAID "WELL I KNOW WHERE YOU ARE" MEDICATIONS GIVEN (SEE MAR). 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 pt CONTINUALLY PULLS AT BEDDING. CONTRERAS CARE DONE. ASSESSMENT DONE. LEGS WEEPING CLEAR FLUID, pt STATES BASELINE. REPOSITIONED IN BED. IVF INFUSING. CALL LIGHT WIHTIN REACH. CURTAIN OPEN TO NURSES STATION. BED ALARM ON.
--- NOTE | 2020-07-31 21:19 | NUR ---
CALL LIGHT ANSWERED. CELL PHONE PROVIDED TO pt REQUESTED. LIGHTS ON IN ROOM. NO ADDITIONAL REQUESTS.
--- NOTE | 2020-07-31 22:07 | NUR ---
pt PULLING ON COVERS. IN TO ASSIST. pt CONFUSED. REORIENTED. MEDICATIONS GIVEN (SEE MAR). BM NOTED. WHEN CHANGING pt HAD A MODERATE SOFT STOOL. LINENS CHANGED. CONTRERAS CARE DONE. VITALS AND I&O RECORDED. pt PICKING AT THE AIR, STATED "I NEED TO FINISH THE BELT." BED ALARM ON. CURTAIN OPEN TO NURSES STATION. CALL LIGHT WITHIN REACH.
--- NOTE | 2020-08-01 00:04 | NUR ---
TALKED TO DR CANDELARIO ABOUT pt STRUGGLING TO GET OUT OF BED. REQUIRING 2 PEOPLE TO KEEP pt OFF THE FLOOR. pt ATTEMPTED TO HIT THIS RN WHEN TRYING TO GET OUT OF BED. NEW ORDERS RECEIVED. SEROQUEL TO BE GIVEN FIRST IF pt WILL TAKE TABLET. IF NOT USE ATIVAN. IF SEROQUEL DOES NOT CALM pt IN 30 MINUTES THEN GIVE ATIVAN IV. NEW ORDERS ENTERED.
--- NOTE | 2020-08-01 00:13 | NUR ---
pt TOOK ORAL MED (SEE MAR). EDEN FUNES IN ROOM ASSISTING pt. pt STILL TRYING TO GET OUT OF BED.
--- NOTE | 2020-08-01 00:50 | NUR ---
ROUNDED ON pt. FALLING ASLEEP, EDEN FUNES REMAINS AT BEDSIDE HOLDING pt's HAND AND COMFORTING HIM. WILL CONTINUE TO MONITOR.
--- NOTE | 2020-08-01 01:27 | NUR ---
PT WITH EYES CLOSED, LAYING SEMI ON HIS LEFT SIDE. BED ALARM PLACED. AFTER 1 HOUR 30 MIN OR SO, 1:1 WITH PT, HE SETTLED DOWN. HE TRIED TO MAKE MANY DEALS ABOUT THIS RN HELPING HIM OUT OF THE TREES TO BED; IF HE COULD PROVE HE COULD WALK, WOULD THIS RN TAKE HIM HOME TO MY HOUSE. DESPITE MANY MANY ATTEMPTS TO ORIENT PT, HE CONTINUED TO WANT TO GET OUT OF BED. AT ONE POINT HE SAID WELL YOU MIGHT BE RIGHT, I CAN'T EVEN GET OUT OF BED. SAT ON THE EDGE OF BED TO COMFORT HIM, ONCE HE ACTED LIKE HE WAS GOING TO KICK ME, HOWEVER, ENCOURAGED HIM NOT TO THIS RN WOULD NEVER HURT HIM. WARM BLANKETS PROVIDED, HE SAID THE CLAYTON WERE COLD. SIDE RAILS UP, AND BED ALARM ON PLACE. DOOR SHUT FOR QUIETNESS BUT CURTAINS OPEN.
--- NOTE | 2020-08-01 01:56 | NUR ---
pt VISUALIZED THROUGH DOOR, RESTING IN BED WITH EYES CLOSED, RESPIRATIONS REGULAR AND UNLABORED. BED ALARM ON. CURTAIN OPEN TO NURSES STATION.
--- NOTE | 2020-08-01 02:24 | NUR ---
NOTED pt MOVING IN BED, IN TO ASSESS. pt REACHING OUT IN THE AIR GRASPING AT SOMETHING INVISIBLE TO THIS RN. pt THE SHOOK IN BED STATED "I'M FALLING." REORIENTED TO SITUATION pt RESPONDED "I DON'T WANT TO FALL AT [facility], THAT WOULD BE BAD" ASSESSMENT DONE. pt ORIENTED TO SELF. pt NOT TRYING TO GET OUT OF BED, ABLE TO REDIRECT NOT TO PULL ON IV OR CONTRERAS. pt REPEATING MEDICATION SCHEDULE FOR THE "BROTHERS DOPA" REMINDED OF THE TIME. pt THEN ASKED ABOUT THIS RN'S SHIFTS AT THE HOSPITAL AND WAS COHERENT FOR A FEW MOMENTS THEN BEGAN MUTTERING SOMETHING. BED ALARM ON. CURTAIN OPEN TO NURSES STATION.
--- NOTE | 2020-08-01 02:44 | NUR ---
pt VISUALIZED THROUGH DOOR, RESTING PEACEFULLY IN BED WITH EYES CLOSED, RESPIRATIONS REGULAR AND UNLABORED. CURTAIN OPEN TO NURSES STATION. BED ALARM ON.
--- NOTE | 2020-08-01 04:05 | NUR ---
IN TO GIVE IV MED (SEE MAR). pt RESTING IN BED, SNORING. RESTLESS AT TIMES. BED ALARM ON. CURTAIN OPEN TO NURSES STATION.
--- NOTE | 2020-08-01 05:38 | NUR ---
pt CONFUSED AT TIMES, WAS ABLE TO REORIENT AT START OF SHIFT. LATER pt BECAME AGITATED AND THREATENED TO HIT STAFF IF THEY DID NOT ALLOW HIM TO WALK HOME. DOSE OF SEROQUEL WAS EFFECTIVE. pt REMAINED RESTLESS AT TIMES BUT WAS ABLE TO REST AT TIMES. LOOSE BOWEL MOVEMENTS. BED ALARM ON. CURTAIN OPEN TO THE NURSES STATION.
--- NOTE | 2020-08-01 06:21 | NUR ---
pt HAD BM, LINENS CHANGED. RAZ CARE DONE. CONTRERAS CARE DONE. pt DID ASSIST BUT FELL TO SLEEP DURING ACTIVITIES. UNSAFE TO SWALLOW AT THIS TIME. ORAL CARE DONE. VITALS AND I&O RECORDED. HELD SCHEDULED PO MED DUE TO SWALLOW. BED ALARM ON. CURTAIN OPEN TO NURSES STATION.
--- NOTE | 2020-08-01 07:34 | NUR ---
THIS RN RECIEVED REPORT FROM BIPIN FUNES. PT APPEARS TO BE RESTING AT THIS TIME BUT IS FIDGETING WITH GOWN. BED ALARM IS ON
--- NOTE | 2020-08-01 08:30 | NUR ---
THIS RN TO CHECK ON PT. PT APPEARS TO BE RESTING COMFORTALBY AT THIS TIME WITH RESPIRATIONS NOTED. PT APPEARS TO BE A BIT FIGITY BUT NOT IN PAIN. THIS RN WILL CONTINUE TO MONITOR
--- NOTE | 2020-08-01 09:30 | NUR ---
THIS RN PASSING BY ROOM AND CHECKED ON PT. PT APPEARS TO BE IN THE SAME CONDITION HE WAS PREVIOUSLY. NO CHANGES, WILL CONTINUE TO MONITOR.
--- NOTE | 2020-08-01 10:30 | NUR ---
In to speak with Sandi. He is sleeping soundly and does not awaken to voice. Per RN pt was given seroquel as he was confused during the night. Will follow up tomorrow.
--- NOTE | 2020-08-01 10:33 | NUR ---
THIS RN IN PTS ROOM TO CHECK ON PT. PT RESPONSIVE TO VOICE AND TOUCH BUT RARELY OPENS HIS EYES. PT ABLE TO ANSWER SOME QUESTIONS THIS AM BUT IS DROWSY. PT HAS NO COMPLIANTS THIS AM
--- NOTE | 2020-08-01 11:58 | NUR ---
THIS RN IN PTS ROOM WITH JAIRON JONES DUE TO PT STATING THAT HE WANTED TO BE REPOSITIONED AND WANTING TO GET UP TO THE CHAIR. THIS RN DISCUSSED WITH PT THAT DUE TO HIM NOT BEING ABLE TO KEEP HIS EYES OPEN THIS RN DIDN'T THINK IT WOULD BE SAFE FOR HIM TO GET UP. PT PARTICUALR ABOUT HOW TO HAVE HIS DENTURES CLEANED AND GETTING INPATIENT WITH STAFF ABOUT THE CLEANING PROCESS. PT ABLE TO SETTLE BACK DOWN. BED ALARM ON AND CALL LIGHT WITHIN REACH AT THIS TIME
--- NOTE | 2020-08-01 13:37 | NUR ---
MARIN DUENAS INFORMED ME THAT PT HAD A DIFFICULT NIGHT AND SHE HAD GIVEN HIM SOME MEDS. HE WAS ASLEEP AND SHE FELT IT BEST TO LET PT REST. WILL CHECK BACK
--- NOTE | 2020-08-01 15:23 | HP ---
[facility] [address], [place] [address] Signed ADMISSION DATE: 07/31/2020 REASON FOR ADMISSION: Fecal impaction, incidentally noted gallbladder distention. HISTORY OF PRESENT ILLNESS: This 89-year-old white man lives at [facility] and is known to have progressive Parkinson's disease. He has limited mobility. He is known to me from the past for a number of years. Indeed, he underwent colonoscopy by me on June 20 of this year for episodic rectal bleeding showed only to have sigmoid diverticulosis and two polyps of the right colon. The patient has also been bothered by bowel obstruction in the past as far back as 2015. The patient has had no bowel movement in the past 5 days. He presented to the emergency room where he was evaluated by Dr. Bella. He was noted to have worsening abdominal pain. The pain was worse with movement and straining to have bowel movement. He had no back pain or upper abdominal pain particularly. He was transferred to the emergency room via emergency medical services. His clinical examination showed him to have slow speech, but alert and oriented otherwise. This is all consistent with his underlying Parkinson's disease of course. He additionally was found to have mild diffuse tenderness in the abdomen without focal tenderness anywhere. A CT scan of the abdomen was performed, which showed significant distention of the colon with stool extending from the rectum more proximally. He had a fecal disimpaction in the emergency room by nursing staff and was noted to have lab studiesto have a white count of 21,000, hematocrit of 39.3. His Chem profile was essentially normal. A lactic acid was not obtained. Urinalysis was normal and COVID serology was negative. He has been admitted for further evaluation and care for fecal impaction and possible stercoral colitis based on CT scan findings. REVIEW OF SYSTEMS: He denies any shortness of breath or chest pain. He has had no hematemesis. No blood per rectum. One enema that has been given on the watkins has been ineffective in relieving any stool. SOCIAL HISTORY: He is . He lives at an assisted living facility at [facility] locally. He is mobile mostly with a wheelchair. His primary provider is Dr. Cruz Electronically Signed By: BORIS CANDELARIO MD 08/01/20 1523 PATIENT NAME: KELLY EARLY HISTORY AND PHYSICAL DATE OF : 34 REPORT #: [id number] PHYSICIAN: BORIS CANDELARIO MD PCP: FISH ALLRED MD REPORT IS CONFIDENTIAL AND NOT TO BE RELEASED WITHOUT AUTHORIZATION [facility] [address], [place] [address] Signed rAley. PHYSICAL EXAMINATION: GENERAL: Pleasant white man who has somewhat flat affect based on his underlying Parkinson's disease. VITAL SIGNS: Temperature is 97.8, pulse 76, blood pressure 139/62, room air saturation 99%. NECK: Trachea is midline. Shows no tachypnea. CHEST: Shows normal respiratory excursion. ABDOMEN: Doughy and not focally tender particularly. EXTREMITIES: He has significant peripheral edema distally. IMAGING STUDIES: CT scan was reviewed with Dr. Booth. Incidentally noted and not mentioned in the interpreting radiologist report was that of a somewhat distended gallbladder though there was no evidence of stones, particularly. There is inflammatory change in the region of the right colon, likely related to the stool impaction. ASSESSMENT: The patient has a pancolonic stool impaction. Stool was noted in the rectum extending proximally including the sigmoid, which is somewhat convoluted in its course and extending over to the right colon. A manual disimpaction was undertaken in the emergency room getting over a cup of solid stool. An initial enema on the watkins has been ineffective in initiating further movement. He was started empirically on at my direction on the possibility he may have a stercoral colitis for which perforation would be problematic obviously. He does not have tenderness in the right upper abdomen to suggest acute cholecystitis, although CT scan finding of his gallbladder does show it to be somewhat hydropic. We will additionally initiate disimpaction maneuvers including additional enemas today. He tells me that his edema of his legs is relatively new. The source of that is uncertain to me. Also of note on CT scan is a what appears to be a relatively large mid duodenal diverticulum, not particularly inflamed and certainly not perforated, but nevertheless not known to me from the past that I recall. We will be mindful of this lesion even though it is apparently asymptomatic. Electronically Signed By: BORIS CANDELARIO MD 08/01/20 1523 PATIENT NAME: KELLY EARLY [facility] HISTORY AND PHYSICAL DATE OF : 34 REPORT #: [id number] PHYSICIAN: BORIS CANDELARIO MD PCP: FISH ALLRED MD REPORT IS CONFIDENTIAL AND NOT TO BE RELEASED WITHOUT AUTHORIZATION [facility] [address] [place] [id number] Signed MD RAFA Nelson/MODL /[id number] cc: MD Meena Ortiz MD Copies: FISH ALLRED MD, KELLY DEAN MD ~ Electronically Signed By: BORIS CANDELARIO MD 08/01/20 1523 PATIENT NAME: KELLY EARLY HISTORY AND PHYSICAL DATE OF : 34 REPORT #: [id number] PHYSICIAN: BORIS CANDELARIO MD PCP: FISH ALLRED MD REPORT IS CONFIDENTIAL AND NOT TO BE RELEASED WITHOUT AUTHORIZATION
--- NOTE | 2020-08-01 15:30 | NUR ---
this rn in pts room with francoise sung to change pts briefs and pull pts rivera. pt toelrated well but rarely opened his eyes. pt appears to be resting comfortably
--- NOTE | 2020-08-01 16:00 | NUR ---
WHEN THIS RN IN PTS ROOM WITH JAIRON JONES. STAFF FLOATED PTS HIPS DUE TO PT STAYING IN BED ALL DAY- NO REDDNESS NOTED ON PTS BACKSIDE- FLOATING FOR PREVENTABLE MEASURES
--- NOTE | 2020-08-01 16:18 | NUR ---
NURSE AND I CHANGED PATIENT AND HIS BED LINENS. NURSE TOOK OUT CONTRERAS.
--- NOTE | 2020-08-01 19:33 | NUR ---
PT CALLED ASKING WHAT IS GOING ON. REMINDED HIM HE IS STAYING THE NIGHT AND RECEIVING IV FLUIDS AND ABX. HE STATES HE MADE A MESS AND NEEDS HELP CLEANING UP. ADVISED PT WILL RETURN WITH HELP. CALL LIGHT IS CLOSE AND ALARM IS ON.
--- NOTE | 2020-08-01 19:34 | NUR ---
REPORT RECEIVED FROM RUFUS FUNES. PT LAYING IN BED RESTING AND IS AWAKE. IVF INFUSING ORDERED AT THIS TIME. WILL CONTINUE PLAN OF CARE.
--- NOTE | 2020-08-01 19:50 | NUR ---
ASSISTED PRIMARY RN WITH CHANGING PT AFTER HAVING BM. PT IS NOW CLEAN WITH FRESH ATTENDS IN PLACE. PT HAS CALL LIGHT IN HAND AND BED ALARM IS ON.
--- NOTE | 2020-08-01 19:53 | NUR ---
pt INCONTINENT OF STOOL. ATTENDS CHANGED WITH MARIN PRICE ASSIST. pt AWAKE, OPENING EYES. ASSISTED TO USE LIGHT CONTROLS PRINCIPAL CLERK LIGHT. pt STATES "I NORMALLY EAT AT THIS TIME." CLEAR ENSURE PROVIDED. CALL LIGHT WITHIN REACH. BED ALARM ON.
--- NOTE | 2020-08-01 21:24 | NUR ---
pt INCONTINENT OF STOOL, URINE INCONTINENCE DURING CHANGING. BED LINENS, GOWN, CHUX CHANGED. pt REPOSITIONED IN BED. LEGS ELEVATED. VSS. BED ALARM ON. BUTTON CALL LIGHT IN HAND. TV CHANGED PER pt REQUEST.
--- NOTE | 2020-08-01 22:08 | NUR ---
THIS RN IN TO ASSESS PT AND ADMINISTER ORDERED MEDICATIONS. PT ASLEEP IN BED BUT AWOKE EASILY. PT WAS ALERT AND ORIENTED TO SELF, YEAR, LOCATION, AND CURRENT PLACE. PT REPORTS NO PAIN WHEN ASKED. SCHEDULED MEDICATIONS ADMINISTERED AT THIS TIME. UPON ASSESSMENT PT HAD ACTIVE BOWEL TONES, LOWER LEGS HAVE +2 EDEMA, IV PATENT AND INFUSING ABX. PT WAS ABLE TO TAKE HIS PO PILLS BUT DID COUGH LATER ONE WHEN SIMPLY TRYING TO DRINK HIS CLEAR ENSURE. PT WAS SITTING UP AT THIS TIME WHEN DRINKING. PT REPORTS NO FURTHER NEEDS AT THIS TIME AND WANTS TO STAY SITTING UP FOR NOW AND WATCH TV. WILL CONTINUE PLAN OF CARE. CALL LIGHT IN REACH, BED IN LOWEST POSITION, IV ABX INFUSING ORDERED.
--- NOTE | 2020-08-01 23:02 | NUR ---
THIS RN IN TO RESTART PT IVF AFTER ABX COMPLETED. PT SLEEPING AT THIS TIME, RESPIRATIONS/SNORING NOTED. PT IN NO APPARENT DISTRESS AND WAS LEFT UNDISTURBED, WILL CONTINUE PLAN OF CARE.
--- NOTE | 2020-08-02 01:21 | NUR ---
THIS RN IN TO TURN PT WITH THE HELP OF MARIN FITCH. PT LAYING IN BED SLEEPING AND AWOKE EASILY. DENTURES TAKEN OUT OF PT AT THIS TIME WELL AND PLACED IN A CUP WITH SOLUTION. PT HAD AN INCONTINENT BM AND WAS ABLE TO VOID INTO A URINAL THAT WAS HELD FOR HIM. PT CLEANED AT THIS TIME, PERICARE DONE, BARRIER CREAM PLACED ON GROIN. PT REPORTS NO FURTHER NEEDS AT THIS TIME, WILL CONTINUE PLAN OF CARE. CALL LIGHT IN REACH, BED IN LOWEST POSITION, BED ALARM ON.
--- NOTE | 2020-08-02 02:01 | NUR ---
THIS RN IN TO HANG NEW BAG OF IVF. PT LAYING IN BED SLEEPING, RESPIRATIONS NOTED AND ARE EVEN AND UNLABORED. NEW BAG OF IVF STARTED, PT LEFT UNDISTURBED, WILL CONTINUE PLAN OF CARE. CALL LIGHT IN REACH, BED IN LOWEST POSITION, BED ALARM ON.
--- NOTE | 2020-08-02 04:28 | NUR ---
THIS RN IN TO ADMINISTER ORDERED IV ABX. PT LAYING IN BED SLEEPING. BREATHING/SNORING NOTED. IV ABX STARTED, PT LEFT SLEEPING AND UNDISTURBED AT THIS TIME, WILL CONTINUE PLAN OF CARE. CALL LIGHT IN REACH, BED IN LOWEST POSITION, WILL CONTINUE PLAN OF CARE.
--- NOTE | 2020-08-02 06:38 | NUR ---
THIS RN IN TO ASSESS PT AND ADMINISTER ORDERED MEDICATION. PT AWOKE EASILY AT THIS TIME AND INFORMED US THAT HE HAD VOIDED. MARIN FITCH IN TO ASSIST WITH CHANGE. PT HAD VOIDED AND HAD A BM IN HIS ATTENDS. LINENS CHANGED, RAZ CARE DONE, NEW ATTENDS PLACED, PERICARE DONE. SCHEDULED PO TYLENOL ADMINISTERED AFTERWARDS. VS TAKEN AT THIS TIME AND PT ASSESSED. BOWEL TONES ACTIVE, PT STILL HAS EDEMA IN HIS LEGS AND FEET BILAT. PEDAL PULSES STRONG, REFILL BRISK. PT REPORTS NO FURTHER NEEDS AT THIS TIME, WILL CONTINUE PLAN OF CARE. BED IN LOWEST POSITION, BED ALARM ON, CALL LIGHT IN REACH, IVF INFUSING ORDERED.
--- NOTE | 2020-08-02 06:55 | NUR ---
DR. CANDELARIO UPDATED ON PT. FOR THE SHIFT. NEW ORDERS GIVEN FOR CBC, BMP, AND KUB . WILL CONTINUE PLAN OF CARE.
--- NOTE | 2020-08-02 07:21 | NUR ---
PT SNORING SOFTLY AT TIME OF BEDSIDE REPORT LEFT UNDISTURBED, APPEARS COMFORTABLE. BED ALARM IS ON FOR SAFETY
--- NOTE | 2020-08-02 07:48 | NUR ---
PATIENT RESTING IN BED, EYES CLOSED. BOARD UPDATED, CALL LIGHT WITHIN REACH, BED ALARM ON
--- NOTE | 2020-08-02 08:01 | NUR ---
PT INDICATES HIS NEED TO TOILET, ASSISTED WITH RAZ CARE AND UNRINAL. PT SBA USING FWW TO THE CHAIR. PERSONAL ITEMS IN REACH WARM WASH CLOTH PROVIDED. PT WATCHING TV AND USING HIS PHONE. CHAIR ALARM IS SET FOR SAFETY
--- NOTE | 2020-08-02 09:43 | NUR ---
PATIENT UP IN CHAIR, VITALS AND I&OS CHARTED. CALL LIGHT AND PERSONAL ITEMS WITHIN REACH. CHAIR ALARM ON, FOR SAFETY
[2020-08-02] MEDS ORDERED: ACETAMINOPHEN500 MG PO (11:31)
--- NOTE | 2020-08-02 11:32 | NUR ---
DR CANDELARIO IN TO SEE PT DISCUSSES DISCHARGE ORDERS AND NEED FOR BOWEL REGIMEN. ALL QUESTIONS ANSWERED, PT VERBALIZES UNDERSTANDING.
[2020-08-02] MEDS ORDERED: METAMUCIL FIBE3.4 GM PO (11:34)
[2020-08-02] MEDS ORDERED: MIRALAX17 GM PO (11:34)
--- NOTE | 2020-08-02 11:40 | NUR ---
Notified by staff, pt has dc orders. Called and spoke with Ailin at [facility] to clarify if pt may return. She states she will need to complete eval as he has been declining and is really not appropriate for independent living. She will complete eval and see if he will go to [facility] in their facility. Updated Rn to not send until pt is seen by the oil well drilling manager at [facility]. Spoke with pt and updated Ailin will visitfor eval.
--- NOTE | 2020-08-02 12:06 | NUR ---
ASSISTED PT TO TOILET AND CHANGED UNDERGARMENT. DRESSED FOR DC HOME. DIAN CROSS'D. PT BACK TO CHAIR NOON MEAL ORDERED
--- NOTE | 2020-08-02 13:51 | NUR ---
PT SEEMS TO BE HAVING A LITTLE BETTER DAY TODAY. SITTING IN CHAIR, LEANING TO THE RIGHT AND TRYING TO USE HIS CELL PHONE. PT RECOGNIZED ME, SAID HE WAS DOING BETTER. PT SOMEWHAT SLOW TO RESPOND, COGNITIVE ABILITY SOMEWHAT IMPAIRED BUT COMFORTABLE. GAVE BLESSING AND WILL FOLLOW
--- NOTE | 2020-08-02 15:00 | NUR ---
Spoke with Ailin from [employer] ([place] She has cleared pt to return. Pt will need van for transport. 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 They will poultry picking machine tender [place]. Charge nurse updated.
--- NOTE | 2020-08-02 15:20 | NUR ---
Spoke with Ailin, she denies need for Rn call as she was here and spoke with RN. Pt ready for dc to [facility].
--- NOTE | 2020-08-03 09:58 | DS ---
[facility] [address], [place] [address] Signed ADMISSION DATE: 07/31/2020 DISCHARGE DATE: 08/02/2020 REASON FOR ADMISSION: This 89-year-old white man lives at [facility], who is known to me from the past. He is known to have progressive Parkinson disease and limited mobility. He underwent colonoscopy by me on June 20 of this year for episodic rectal bleeding, showing only sigmoid diverticulosis and two polyps of the right colon. The patient was taken to the emergency room with abdominal pain and distention and evaluated by Dr. James and found on CT scan to have marked fecal impaction extending from rectum proximally. He had an area of inflammation of the right colon, which was interpreted as possible stercoral colitis and on that basis was directly admitted to the hospital under my service. He was also noted to have an elevated white count of 21,000 with hematocrit of 39.3. Chem profile was normal. Lactic acid not obtained. HOSPITAL COURSE: He underwent a manual disimpaction initially in the emergency room and on the watkins, additionally had a tap water enemas administered as well as some manual disimpaction. This did seem to improve production of his stool. Antibiotic cefoxitin was given empirically at the time of admission, given the stercoral colitis possibility. The patient did not have generalized peritonitis by any means however. He had variable levels of confusion, but not likely related to systemic toxicity per se. He did have nocturnal disorientation. Care was taken to avoid Haldol, given his underlying Parkinson disease. His usual medications were initiated at the time of his admission and he was maintained on a liquid diet. Followup abdominal x-ray performed on August 01, 2019, did show clearance of the colon of stool, but distended loops of small bowel. Not mentioned previously was administration of one bottle of Mag citrate once the patient's bowels had started moving to allow for more definitive evacuation. His disorientation at night was ultimately addressed with Seroquel 12.5 mg, which did result in rather prolonged sedation. This cleared spontaneously. A consultation with hospitalist was undertaken affirming that there were no other issues that had been neglected and there were found to be none. He had progressive improvement including the continued tolerance of oral intake. Electronically Signed By: BORIS CANDELARIO MD 08/03/20 0958 PATIENT NAME: KELLY EARLY DISCHARGE SUMMARY DATE OF : 34 REPORT #: [id number] PHYSICIAN: BORIS CANDELARIO MD PCP: ANTHONY TUBBS MD REPORT IS CONFIDENTIAL AND NOT TO BE RELEASED WITHOUT AUTHORIZATION [facility] [address], [place] [address] Signed Additionally, he did require Pa catheterization for urinary retention at one time, but Pa was ultimately removed and spontaneous voiding returned. By the day of discharge, he is alert and oriented, back to his baseline. His white count is 10.8 with hematocrit of 34.9, and platelet count of 184,000 with normal electrolytes and a creatinine of 0.75. Regimen is outlined for him to include MiraLAX 1 packet (17 g) daily as well as Metamucil powder one packet daily. He will return to the ongoing care of his primary provider, Dr. Tubbs for usual medical care. No specific follow up in my office will be necessary. It is recalled he did have colonoscopy in June, which showed only diverticular disease and no neoplasm and only two polyps. DISCHARGE MEDICINES: Will include, 1. Tylenol 1000 mg p.o. q.6 hours as needed for pain #30. 2. MiraLAX 17 g p.o. daily. 3. Psyllium Husk, Metamucil 3.4 g p.o. daily. He will resume his usual medications including carbidopa levodopa 25/100 one tab p.o. four times daily. 4. Vitamin D3 25 mcg (1000 units) p.o. daily. 5. Losartan 100 mg p.o. daily. 6. Tums tablet one tablet p.o. daily. 7. Vitamin C 500 mg p.o. daily. 8. Tamsulosin 0.4 mg p.o. daily. 9. Trospium chloride 20 mg tablet p.o. daily. 10. Budesonide-formoterol fumarate (budesonide inhaler one puff b.i.d. as needed). 11. Amlodipine 5 mg p.o. daily. DISCHARGE DIAGNOSES: 1. Severe fecal impaction and beginning of right stercoral colitis. 2. Progressive Parkinson disease. 3. Benign prostatic hypertrophy with episode of urinary retention. 4. Hypertension. 5. Reactive airway disease. 6. Frailty. Boris Candelario MD Electronically Signed By: BORIS CANDELARIO MD 08/03/20 0958 PATIENT NAME: KELLY EARLY DISCHARGE SUMMARY DATE OF : 34 REPORT #: [id number] PHYSICIAN: BORIS CANDELARIO MD PCP: ANTHONY TUBBS MD REPORT IS CONFIDENTIAL AND NOT TO BE RELEASED WITHOUT AUTHORIZATION [facility] [address] [place] [address] Signed /MODL /[id number] cc: MD Anthony Chan MD Copies: BRONWYN JAMES MD, MALCOLM MD ~ Electronically Signed By: BORIS CANEDLARIO MD 08/03/20 0958 PATIENT NAME: SHARATHKELLY LIZZY DISCHARGE SUMMARY DATE OF : 34 REPORT #: [id number] PHYSICIAN: BORIS CANDELARIO MD PCP: ANTHONY TUBBS MD REPORT IS CONFIDENTIAL AND NOT TO BE RELEASED WITHOUT AUTHORIZATION
== END 2020-08-02 16:04 | disposition home or self-care (01) | DRG 388 ==
LOC: ED 02:37 → MS 02:39
PROVIDERS: ADMIT Surgery; ATTEND Surgery
DX: K56.41 Fecal impaction (principal); G93.41 Metabolic encephalopathy; Z20.822 Contact with and (suspected) exposure to COVID-19; K52.89 Other specified noninfective gastroenteritis and colitis; G20 Parkinson's disease; I10 Essential (primary) hypertension; N40.1 Benign prostatic hyperplasia with lower urinary tract symptoms; R33.8 Other retention of urine; J44.9 Chronic obstructive pulmonary disease, unspecified; R54 Age-related physical debility; Z79.899 Other long term (current) drug therapy; Z79.51 Long term (current) use of inhaled steroids
CPT/HCPCS: 36415; 74018; 74176; 80048; 80053; 81001; 82247; 82465; 83615; 83690; 83735; 84100; 84478; 84550; 85025; 96374; 96375; 99284-25; C9803; J0694; J1170; J2405; J3480; J7060; J7121; U0003

== ENCOUNTER 2020-09-03 05:59 | Emergency (ER) | payer MEDICARE, BC ==
[~2020-09-03] VITALS: Ht 182.9 cm; Wt 82.6 kg
[~2020-09-03 05:59] MED LIST changes: +ACETAMINOPHEN500 MG PO; +AMLODIPINE BESYL5 MG PO; +BUDESONIDE-FO10.2 G1 INH; +METAMUCIL FIBE3.4 GM PO
--- OUTSIDE RECORDS SUMMARY | 2020-09-03 06:02 | XMS ---
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 Care History Medical/Surgical 03/09/2020 [facility] Patient having syncope and seeing blood in stool.\T\nbsp; Dr. Tubbs has sent referral to Dr. Evangelista. 08/19/2019 [facility] - Patient is currently established with [facility]. If patient is seen in the ED during business hours. Please contact CHWs at [facility]. Care Recommendation: If this patient has had [...] care. E.D. VISIT COUNT (12 MO.) [address] [facility] TOTAL 6 NOTE: Visits indicate total known visits. ED/UCC VISIT TRACKING (12 MO.) 09/03/2020 05:59 [facility] [place] TYPE: Emergency COMPLAINT: - HIP PAIN 07/31/2020 02:38 [facility] [place] TYPE: Emergency COMPLAINT: - CONSTIPATION 03/08/2020 11:00 [facility] [place] TYPE: Emergency COMPLAINT: - WEAK DIAGNOSES: - Hypokalemia - Melena - Chronic obstructive pulmonary disease, unspecified - Other group home (current) drug therapy - Parkinson's disease - Weakness 03/07/2020 18:35 [facility] [place] TYPE: Emergency COMPLAINT: - RECTAL BLEEDING DIAGNOSES: - Hemorrhage of anus and rectum - Chronic obstructive pulmonary disease, unspecified - Other terminal gauger (current) drug therapy - Parkinson's disease 03/05/2020 08:07 [facility] [place] TYPE: Emergency COMPLAINT: - WEAKNESS DIAGNOSES: - Constipation, unspecified - Chronic obstructive pulmonary disease, unspecified - Parkinson's disease - Urinary tract infection, site not specified - Other terminal gauger (current) drug therapy - Weakness 03/04/2020 07:40 [facility] [place] TYPE: Emergency COMPLAINT: - WEAKNESS DIAGNOSES: - Parkinson's disease - Other group home (current) drug therapy - Localized edema - Chronic obstructive pulmonary disease, unspecified - Retention of urine, unspecified - Other difficulties with micturition INPATIENT VISIT TRACKING (12 MO.) 07/31/2020 09:[address] [facility] [place] TYPE: Medical Surgical COMPLAINT: - ABD PAIN CONSTIPATION DIAGNOSES: - Metabolic encephalopathy - Benign prostatic hyperplasia with lower urinary tract symptoms - Fecal impaction - Other specified noninfective gastroenteritis and colitis - care home (current) use of inhaled steroids - Parkinson's disease - Essential (primary) hypertension - Chronic obstructive pulmonary disease, unspecified - Age-related physical debility - Other retention of urine - Other terminal gauger (current) drug therapy [email or web address]
== END 2020-09-03 07:18 | disposition home or self-care (01) ==
LOC: ED 05:59
DX: M25.551 Pain in right hip (principal); G89.29 Other chronic pain; R60.0 Localized edema; J44.9 Chronic obstructive pulmonary disease, unspecified; Z79.899 Other long term (current) drug therapy
CPT/HCPCS: 73502; 99283; A9270

== ENCOUNTER 2020-09-08 11:02 | Emergency (ER) | payer MEDICARE, BC ==
[~2020-09-08] VITALS: Ht 182.9 cm; Wt 82.6 kg
[~2020-09-08 11:02] MED LIST changes: +VITAMIN D3125 MC2 PO; -VITAMIN D325 MC1 PO
--- NOTE | 2020-09-08 12:50 | EKG ---
[facility] [address] [facility] [place] [address] Signed Sinus rhythm with 1st degree AV block Right bundle branch block Left anterior fascicular block Bifascicular block Left ventricular hypertrophy with repolarization abnormality Abnormal ECG When compared with ECG of 20-JUN-2020 08:24, No significant change was found Confirmed by JERSON DUONG DO ([id number]) on 09/08/2020 12:50:20 PM Electronically Signed By: JERSON DUONG DO 09/08/20 1250 PATIENT NAME: KELLY EARLY Electrocardiogram DATE OF : 34 PHYSICIAN: JERSON DUONG DO REPORT #: [id number] REPORT IS CONFIDENTIAL AND NOT TO BE RELEASED WITHOUT AUTHORIZATION
--- OUTSIDE RECORDS SUMMARY | 2020-09-08 12:56 | XMS ---
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 Care History Medical/Surgical 03/09/2020 [facility] Patient having syncope and seeing blood in stool.\T\nbsp; Dr. Tubbs has sent referral to Dr. Evangelista. 08/19/2019 [facility] - Patient is currently established with [facility]. If patient is seen in the ED during business hours. Please contact CHWs at [facility]. Care Recommendation: If this patient has [...] care. E.D. VISIT COUNT (12 MO.) [address] [facility] TOTAL 7 NOTE: Visits indicate total known visits. 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 - Pain in right hip - Localized edema - Chronic obstructive pulmonary disease, unspecified 07/31/2020 02:38 [facility] [place] TYPE: Emergency COMPLAINT: - CONSTIPATION 03/08/2020 11:00 [facility] [place] TYPE: Emergency COMPLAINT: - WEAK DIAGNOSES: - Hypokalemia - Melena - Chronic obstructive pulmonary disease, unspecified - 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 - Parkinson's disease - Weakness 03/07/2020 18:35 [facility] [place] TYPE: Emergency COMPLAINT: - RECTAL BLEEDING DIAGNOSES: - Hemorrhage of anus and rectum - Chronic obstructive pulmonary disease, unspecified - Other usp (current) drug therapy - Parkinson's disease 03/05/2020 08:07 [facility] [place] TYPE: Emergency COMPLAINT: - WEAKNESS DIAGNOSES: - Constipation, unspecified - Chronic obstructive pulmonary disease, unspecified - Parkinson's disease - Urinary tract infection, site not specified - Other usp (current) drug therapy - Weakness 03/04/2020 07:40 [facility] [place] TYPE: Emergency COMPLAINT: - WEAKNESS DIAGNOSES: - Parkinson's disease - Other usp (current) drug therapy - Localized edema - Chronic obstructive pulmonary disease, unspecified - Retention of urine, unspecified - Other difficulties with micturition INPATIENT VISIT TRACKING (12 MO.) 07/31/2020 09:46 [facility] [place] TYPE: Medical Surgical COMPLAINT: - ABD PAIN CONSTIPATION DIAGNOSES: - Metabolic encephalopathy - Benign prostatic hyperplasia with lower urinary tract symptoms - Fecal impaction - Other specified noninfective gastroenteritis and colitis - 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
[2020-09-08] MEDS ORDERED: LASIX20 MG PO (13:38)
== END 2020-09-08 14:10 | disposition home or self-care (01) ==
LOC: ED 11:02
DX: S76.011A Strain of muscle, fascia and tendon of right hip, initial encounter (principal); R60.0 Localized edema; X58.XXXA Exposure to other specified factors, initial encounter; J44.9 Chronic obstructive pulmonary disease, unspecified; Z79.899 Other long term (current) drug therapy
CPT/HCPCS: 71045; 73502; 80053; 81001; 83735; 83880; 84484; 85025; 85610; 93005; 93010; 99284-25

== ENCOUNTER 2020-09-11 10:21 | Inpatient (IN) | payer MEDICARE, BC ==
[~2020-09-11] VITALS: Ht 182.9 cm; Wt 84.9 kg
[~2020-09-11 10:21] MED LIST changes: +LASIX20 MG PO
--- OUTSIDE RECORDS SUMMARY | 2020-09-11 10:26 | XMS ---
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 Care History Medical/Surgical 03/09/2020 [facility] Patient having syncope and seeing blood in stool.\T\nbsp; Dr. Allred has sent referral to Dr. Evangelista. 08/19/2019 [facility] - Patient is currently established with [facility]. If patient is seen in the ED during business hours. Please contact CHWs at [facility]. Care Recommendation: If this patient has had [...] providing care. E.D. VISIT COUNT (12 MO.) [address] [facility] TOTAL 8 NOTE: Visits indicate total known visits. ED/UCC VISIT TRACKING (12 MO.) 09/11/2020 10:[address] [facility] [place] TYPE: Emergency COMPLAINT: - SHAKING, ALTERED MENTAL STATUS 09/08/2020 11:03 [facility] [place] TYPE: Emergency COMPLAINT: - MULTIPLE COMPLAINTS 09/03/2020 05:59 [facility] [place] TYPE: Emergency COMPLAINT: - HIP PAIN DIAGNOSES: - Other chronic pain - Other long term acute care registered nurse (current) drug therapy - Pain in right hip - Localized edema - Chronic obstructive pulmonary disease, unspecified 07/31/2020 02:[address] [facility] [place] TYPE: Emergency COMPLAINT: - CONSTIPATION 03/08/2020 11:[address] [facility] [place] TYPE: Emergency COMPLAINT: - WEAK DIAGNOSES: - Hypokalemia - Melena - Chronic obstructive pulmonary disease, unspecified - Other prison (current) drug therapy - Parkinson's disease - Weakness 03/07/2020 18:[address] [facility] [place] TYPE: Emergency COMPLAINT: - RECTAL BLEEDING DIAGNOSES: - Hemorrhage of anus and rectum - Chronic obstructive pulmonary disease, unspecified - Other long term acute care registered nurse (current) drug therapy - Parkinson's disease 03/05/2020 08:07 [facility] [place] TYPE: Emergency COMPLAINT: - WEAKNESS DIAGNOSES: - Constipation, unspecified - Chronic obstructive pulmonary disease, unspecified - Parkinson's disease - Urinary tract infection, site not specified - Other long term acute care registered nurse (current) drug therapy - Weakness 03/04/2020 07:40 [facility] [place] TYPE: Emergency COMPLAINT: - WEAKNESS DIAGNOSES: - Parkinson's disease - Other prison (current) drug therapy - Localized edema - [...] Other specified noninfective gastroenteritis and colitis - skilled nursing (current) use of inhaled steroids - Parkinson's disease - Essential (primary) hypertension - Chronic obstructive pulmonary disease, unspecified - Age-related physical debility - Other retention of urine - Other long term acute care registered nurse (current) drug therapy [email or web address]
[2020-09-11] MEDS ORDERED: CITRUCEL479 GM PO (10:29)
--- NOTE | 2020-09-11 17:43 | NUR ---
89 YEAR OLD PATIENT BEING ADMITTED TO ROOM 128 FOR ANGIOEDEMA THAT OCCURED WHILE IN THE ER. PT IS NOW INTUBATED WITH A 7.5 MM ETT. UNSUCCESSFUL ATTEMPTS HAVE BEEN MADE BY ER TO INSERT AN OG AND NG TUBE. WILL RE-ASSESS. PT ARRIVING ON A PROPOFOL GTT. PT HAS HISTORY OF PARKINSONS AND HAS BEEN HAVING EPISODES OER THE LAST COUPLES OF WEEKS OF VIOLENT SHAKING OF HIS ARMS, IN NON THREATENING WAYS. PT LIVES AT [facility]. PENDING PATIENTS' ARRIVAL AT THIS TIME.
--- NOTE | 2020-09-11 18:00 | NUR ---
PATIENT ON VC-AC 17, VT 620, PEEP 5, FI02 40%. 1 L BOLUS OF LR FINISHES AND CONTRERAS EMPTIED FOR 1175 DILUTE URINE. PICTURES TAKEN OF SKIN ISSUES AND PLACED IN CHART. PT'S GIRLFRIEND FROM [facility] COMES AND VISITS HIM. SHE REPORTS THAT HE HAS BEEN DETERIORATING OVER THE LAST MONTH WITH HIS PARKINSONS.
--- NOTE | 2020-09-11 18:43 | NUR ---
ATTEMPTED OG PLACEMENT BUT UNABLE TO PASS. PT'S BACK OF THROAT AND AIRWAY STILL SEEM TOO SWOLLEN. BLOODY DRAINAGE SUCTIONED OUT. DR. DUONG TO BE NOTIFIED.
--- NOTE | 2020-09-11 18:59 | NUR ---
DR. DUONG CALLED AND UPDATED ON PATIENT AND CONDITION. ORDER REC'D FOR SPUTUM CX AND RESTRAINT ORDER. NO IVF TO BE INFUSING ON PATIENT PER DR. DUONG. PROPOFOL TURNED DOWN TO 50 MCG/KG/MIN FROM 70. NEW BOTTLE HUNG AT THIS TIME. DR. DUONG INFORMED OF PATIENT'S INVOLUNTARY MOVEMENT OF HIS LOWER LEGS AND THE STIFFNESS OF HIS ARMS. UPDATED THAT THE OG WAS UNSUCCESSFUL AND WE WILL SEE WHAT WE CAN DO IN THE AM. RESTRAINTS IN PLACE. REPORT TO FILLER WIPER.
--- NOTE | 2020-09-11 19:27 | NUR ---
PROPOFOL GTT TITRATED DOWN TO 30MCG/KG/MIN.
--- NOTE | 2020-09-11 20:02 | NUR ---
RT IN WORKING WITH PT
--- NOTE | 2020-09-11 20:24 | NUR ---
CALL TO DR DUONG WITH ABG RESULTS. VENT SETTINGS CHANGED-RATE CHANGED TO 14 AND FIO2 TURNED DOWN TO 30%. ALSO NEW ORDER FOR VASOTEC GIVEN.
--- NOTE | 2020-09-11 20:36 | NUR ---
DR DUONG ROUNDING ON PT, DISCUSSING PLAN OF CARE FOR THE NIGHT, UPDATED ON CURRENT VS/URINE OUTPUT AND VENT SETTINGS. PLAN TO DRAW VBG IN ONE HOUR TO FOLLOW UP ON VENT SETTING CHANGES.
--- NOTE | 2020-09-11 20:52 | NUR ---
PROPOFOL GTT TITRATED DOWN TO 20MCG/KG/MIN. HR CONT TO TREND LOWER, NOW 50-54.
--- NOTE | 2020-09-11 22:19 | NUR ---
pt CHEWING ON ETT. PROPOFOL INCREASED TO 50. VBG DRAWN AND SENT TO LAB. pt REPOSITIONED, RANGE OF MOTION DONE.
--- NOTE | 2020-09-12 00:27 | NUR ---
IN TO DO ASSESSMENT. RESTRAINTS RELEASED, ROM DONE ON ALL EXTREMITIES. pt REPOSITIONED. VISUALIZED SKIN BREAKDOWN ON BACK OF RIGHT CALF, FOAM DRESSING APPLIED. RESTRAINTS REAPPLIED. pt DOES NOT OPEN EYES BUT DOES RESPOND TO PHYSICAL STIMULI. ATTEMPTED TO PLACE NG OR OG, UNSUCESSFUL. URINE IS MORE YELLOW THAN PRIOR ASSESSMENT. HOB 32 DEGREES. RT IN ROOM.
--- NOTE | 2020-09-12 01:10 | NUR ---
VENT SETTINGS CHANGED DUE TO VBG RESULTS. RESPIRATION RATE NOW 12.
--- NOTE | 2020-09-12 04:00 | NUR ---
IN TO DO ASSESSMENT. pt REPOSITIONED. RESTRAINTS RELEASED, ROM. RESTRAINTS REAPPLIED. pt DOES NOT OPEN EYES TO STIMULI BUT DOES GRIMACE AND MOVE AWAY. ORAL CARE DONE WITH RT. LUNGS CLEAR IN THE BASES COARSE IN THE UPPERS.
--- NOTE | 2020-09-12 06:04 | NUR ---
TITRATED PROPOFOL TO 20.
--- NOTE | 2020-09-12 06:05 | NUR ---
ORAL GASTRIC TUBE PLACED BY MARIN RUSHING. CHEST XRAY DONE PER PROTOCOL.
--- NOTE | 2020-09-12 06:30 | NUR ---
CALL TO DR DUONG TO UPDATE ON CURRENT STATUS, NO NEW ORDERS.
--- NOTE | 2020-09-12 06:41 | NUR ---
CALL FROM RADIOLOGY CONFIRMING PLACEMENT OF OG TUBE IN STOMACH.
--- NOTE | 2020-09-12 06:46 | NUR ---
MORNING MEDICATION GIVEN NOW PER MD REQUEST
--- NOTE | 2020-09-12 07:26 | NUR ---
PT MORE AWAKE, LOOKS UNCOMFORTABLE, GRIMACING, 50MCG IV FENTANYL GIVEN.
--- NOTE | 2020-09-12 07:35 | NUR ---
UPON ENTERNG ROOM, PATIENT IS CALM ON VENT WITH SETTING T-620,FIO2-30,RR-12,PEEP-5. ETCO2 35,PIP-18. PATIENT IS ABLE TO OPEN EYES AND RESPOND TO COMMANDS. ETT 7.5 CM IS TAPED 26 AT TEETH. WRISTS BILAT ISN RESTRAINTS, CONTRERAS CATH IS PATENT WITH YELLOW URINE NOTED, OG TUBE CLAMPED. FEW FINE TREMORS NOTED.SUCTIONED BY RT. SPUTUM SENT TO LAB.
--- NOTE | 2020-09-12 08:30 | NUR ---
VENT SETTING CHANGED TO CPAP.
--- NOTE | 2020-09-12 08:30 | NUR ---
DR. DUONG HERE TO SEE PATIENT. ORDERS RECIEVED TO HOLD 0900 BENADRYL. NO FUTHER CHANGES.
--- NOTE | 2020-09-12 08:45 | NUR ---
SEDATION LIGHTENED, PROPOFOL GTT TO 10 MCG/KG/MIN. HOB REMAINS ELEVATED. SUCTIONED PRN FOR THICK WHITE SECRETIONS.
--- NOTE | 2020-09-12 09:15 | NUR ---
RT HERE TO DO WEANING PARMETERS. PATIENT HAS WEAK COUGH. PATIENT IS CALM, AWAKE AND ABLE TO FOLLOW RT COMMANDS FOR WEANING PARMETERS.
--- NOTE | 2020-09-12 09:15 | NUR ---
Spoke with pts son Wilbur. He states pt has returned to [facility]. He has a wc and a electric wc as he as begun to require more care. Pt remains on a vent today. Son states he will be meeting with adryan Jc, who is pt's POA. They are not sure if he is financia, medical, or durable poa. Son states pt also has a brother, Hunter. Will cont. to check on pt and assess his preference for dc when he is able to make a decision.
--- NOTE | 2020-09-12 10:00 | NUR ---
PATIENT SON HERE. TALKED WITH HIM REGARDING POC, INDICATES UNDERSTANDING.
[2020-09-12] MEDS ORDERED: CITRUCEL479 GM PO (10:25)
--- NOTE | 2020-09-12 10:27 | NUR ---
MED REC COMPLETE
--- NOTE | 2020-09-12 11:00 | NUR ---
SPONGE BATH GIVEN. TOLERATED WELL.
--- NOTE | 2020-09-12 11:45 | NUR ---
RT HERE TO WORK WITH PATIENT, VEST APPLIED. PATIENT SON REMAINS IN RPPN.
--- NOTE | 2020-09-12 12:21 | NUR ---
RT JAVIER IN DOING PROCEDURE WITH PT. WILL CONTINUE TO FOLLOW AND CHECK BACK.
--- NOTE | 2020-09-12 12:30 | NUR ---
ASSESSMENT COMPLETE. ORAL CARE GIVEN Q 4 HRS AND PRN.
--- NOTE | 2020-09-12 13:50 | NUR ---
NICOLE VALDOVINOS RN HERE TO EVALUATE WOUNDS. SEE WOUND CARE NOTE.
--- NOTE | 2020-09-12 14:14 | NUR ---
WOUND CONSULT ORDER RECEIVED. EMR IS REVIEWED AND SEBASTIEN MACKEY RN IS INTERVIEWED. ALLEVYN GENTLE BORDER DRESSINGS ARE IN PLACE TO THE POSTERIOR ASPECT OF THE PATIENT'S RIGHT LOWER EXTREMITY. THESE ARE EASILY REMOVED. SEVERAL IRREGULARLY SHAPED BURN-APPEARING WOUNDS APPEAR ON PATIENT'S RIGHT LOWER EXTREMITY. PATIENT IS INTUBATED AND UNABLE TO GIVE AN ACCOUNT TO THE ETIOLOGY OF THESE WOUNDS. NEW ORDERS ARE RECEIVED. DRESSINGS APPLIED PER ORDER AND PATIENT CONTINUES TO BE SEDATED AND INTUBATED. SEBASTIEN MACKEY RN ASSISTED WITH THIS WOUNDS ASSESSMENT AND DRESSING APPLICATION AND VERBAL REPORT IS GIVEN TO HER.
--- NOTE | 2020-09-12 14:20 | NUR ---
REPOSITIONED. REMAINS ON PROPOFOL GTT AT 30 MCG/KG/MIN
--- NOTE | 2020-09-12 15:34 | NUR ---
Spoke with Pao by phone as she is currently getting swabbed for covid She states she has been very happy with her move to [facility]. Staff are very good and she enjoys the food. She remains in the respite room but plans on moving to changing to an apartment soon. States her sons are coming to visit next week to work on her house to sell. She plans on staying at [facility] and returning there on discharge.
--- NOTE | 2020-09-12 16:22 | NUR ---
ASSESSMENT UNCHANGED. REPOSITIONED.
--- NOTE | 2020-09-12 18:00 | NUR ---
NO CHANGES. VENT SETTINGS TV-620,FIO2-30,PEEP-5,RR ON AC-12, PIP-18. ETT TAPED 26 AT LIP. ETCO2-33. VEST THERAPY HAS BEEN DONE TWICE TODAY BY RT. PATIENT TOLERATED WELL, HOB ELEVATED TO 30 DEGRESS. CONTRERAS CATH PATENT, IVF INFUSING AT 75 ML/HR. OGT CLAMPED, THIS HAS BEEN USED FOR MEDICATIONS. HAS BEEN SUCTIONED PRN TODAY FOR MOD AMOUNT OF THICK WHITE TO [place] SPUTUM. ORAL CARE GIVEN Q4HRS.
--- NOTE | 2020-09-12 19:36 | NUR ---
RECEIVED REPORT FROM RUFUS FUNES. pt RESPONDED BY SQUEEZING HAND AND OPENING EYES TO VOICE. PROPOFOL AT 30. LR AT 75. RESTRAINTS IN PLACE ON BOTH WRIST FOR TUBE PROTECTION.
--- NOTE | 2020-09-12 20:21 | NUR ---
pt GRIMACING. CPOT OF 3, PRN PAIN MEDICATION GIVEN (SEE MAR). pt MORE RELAXED, GRIMACING ONLY WHEN ORAL CARE WAS DONE. ASSESSMENT DONE. LUNGS CLEAR IN THE BASES, SLIGHTLY COARSE IN THE UPPERS. EDEMA NOTED TO LOWER EXTREMITIES. ROM DONE ON ALL EXTREMITIES. RESTRAINTS RELEASED AND REPLACED. pt WOULD SQUEEZE HAND AT TIMES. ORAL CARE DONE. pt SUCTIONED. REPOSITIONED. URINE IN CONTRERAS IS CONCENTRATED YELLOW. CONTRERAS CARE AND SKIN CARE DONE. CURTAIN OPEN TO NURSES STATION.
--- NOTE | 2020-09-12 21:16 | NUR ---
MEDICATIONS GIVEN (SEE MAR). pt COUGHING AT TIMES. SUCTIONED. pt NOW RESTING CPOT 0.
--- NOTE | 2020-09-12 23:07 | NUR ---
pt TURNED. MOUTH AND AIRWAY SUCTIONED. pt TOLERATED WELL. CONTRERAS DRAINING YELLOW URINE. RESP RATE 14, VENT SET AT 12.
--- NOTE | 2020-09-13 | NUR ---
IN TO DO ASSESSMENT. pt OPENED EYES TO VOICE. RASS -2. ASSESSMENT DONE. ORAL CARE DONE. ETT 26 AT THE LIP. MOVED TO LEFT. REPOSITIONED.
--- NOTE | 2020-09-13 02:00 | NUR ---
pt OPENED EYES WITHOUT STIMULI, RASS -1. SHOOK HEAD NO TO QUESTIONS ABOUT PAIN. REPOSITIONED.
--- NOTE | 2020-09-13 04:00 | NUR ---
IN TO DO ASSESSMENT. RESTRAINTS REMOVED, ROM, REAPPLIED. pt MOVED WITH TOUCH AND VOICE. ROM IN BLE. REPOSITIONED. ASSESSMENT DONE. NO CHANGES IN VENT SETTINGS.
--- NOTE | 2020-09-13 06:05 | NUR ---
pt REPOSITIONED. HR 40-60. RASS -3. PROPOFOL TITRATED TO 25.
--- NOTE | 2020-09-13 06:59 | NUR ---
NEW BOTTLE OF PROPOFOL HUNG, TITRATED TO [address] JOSEPH REQUEST TO "LIGHTEN SEDATION"
--- NOTE | 2020-09-13 07:30 | NUR ---
REPORT RECIEVED, PATIENT REMAINS ON VENT, TV-620, FIO2-30, PEEP-5, AC-12, ETCO2-35, PIP-18. CONTRERAS CATH PATENT, IVF PATENT. WRIST RESTRAINTS INTACT BILAT. PROPOFOL GTT AT 20 MCG/KG/MIN. HOB ELEVATED.
--- NOTE | 2020-09-13 08:50 | NUR ---
PROPOFOL GTT TO OFF SEDATION VACATION FOR EXTABATION.
--- NOTE | 2020-09-13 09:12 | NUR ---
PATIENT IS NOW AWAKE AND FOLLOWING COMMANDS. VENT TO CPAP MODE.
--- NOTE | 2020-09-13 09:33 | NUR ---
REMAINS ON CPAP MODE ON VENT. RR-13. IS RELAXED AND CALM. WILL RESPOND TO COMMANDS.
--- NOTE | 2020-09-13 10:10 | NUR ---
DR. JOSEPH HERE, ORDERS RECIEVED TO EXTABATE. PATIENT IS W/O ANY RESP DISTRESS. REMAINS VERY CALM.
--- NOTE | 2020-09-13 10:20 | NUR ---
EXTABATED, OXYMASK AT 2 LITER APPLIED. TOLERATED WELL. PATIENT IS VERY WEAK. WILL ENC TO COUGH AND DEEP BREATH.
--- NOTE | 2020-09-13 10:35 | NUR ---
1015- pt extubated and placed on oxymask 2lpm , SPO2 100%, RR 15, BS good bilaterally, no signs of stridoe, bipap setup at bedside for addtional support if needed will continue to monitor the patient. Pre extubation Pt passed 45 minute cpap trial , vc 1200, nif was 20 unsure of effort , rbsi 31. Doctor at bedside .
--- NOTE | 2020-09-13 10:40 | NUR ---
SMALL SIP OF WATER GIVEN, PATIENT TOLERATED WELL. NO COUGHING NOTED WHEN SWALLOWING WATER.
--- NOTE | 2020-09-13 10:50 | NUR ---
DR. JOSEPH BACK INTO CHECK ON PATIENT. NO FUTHER ORDERS AT THIS TIME. NOW ON ROOM AIR.
--- NOTE | 2020-09-13 17:29 | NUR ---
TALKED TO DOCTOR ANA AND SHE IS OKAY TO DC BIPAP AND VEST THERAPY , SHE WOULDLIKE PATIENT TO USE ACAPELLA BID
--- NOTE | 2020-09-13 17:48 | NUR ---
BEING FED BY STUDENT NURSE. PATIENT IS W/O PROBLEMS.
--- NOTE | 2020-09-13 19:01 | NUR ---
back to bed with assist of 2 staff. ON BED GRIFFIN TO HAVE SOFT STOOL.
--- NOTE | 2020-09-13 19:45 | NUR ---
RECEIVED REPORT FROM MARIN CROWE. pt OFF BEDPAN, HAD A SOFT BM. PERICARE DONE, FRESH DEPENDS. ASSESSMENT DONE. pt ORIENTED TO SELF AND PLACE. REQUESTED HIS SINMET AT 2100. LUNG SOUNDS CLEAR. CALL LIGHT WITHIN REACH. pt SITTING IN BED WATCHING TV.
--- NOTE | 2020-09-13 21:00 | NUR ---
IN TO GIVE MEDICATION. pt SLIGHTLY CONFUSED ABOUT SITUATION, REORIENTED. TOOK MEDICATIONS WELL. REPOSITIONED. NO REQUESTS AT THIS TIME. CALL LIGHT WITHIN REACH. CURTAIN OPEN TO NURSES STATION.
--- NOTE | 2020-09-13 22:31 | NUR ---
pt CALLING OUT. REQUESTED HIS MEDICATIONS. ORIENTED TO SELF AND PLACE. DISCUSSED HIS EXTUBATION. REMINDED pt HE ALREADY TOOK IS 9PM DOSE OF SINMET. pt REPEATED THAT LUCINDA FROM [facility] WAS GETTING HIM A NEW CHAIR. REQUESTED HIS "GRABBER" FROM THE WALL. ORIENTED TO ROOM AND THE EQUIPMENT HE WAS SEEING. CALL LIGHT WITHIN REACH. CURTAIN OPEN TO NURSES STATION.
--- NOTE | 2020-09-14 00:30 | NUR ---
pt CALLING OUT. IN TO ASSESS. pt ASKING QUESTIONS ABOUT HIS STUFF. REASSURED THAT IT WILL BE WAITING FOR HIM. REORIENTED TO SITUATION AND PLACE. FED pt SOME JELLO "PARKINSON'S AND JELLO ON A SPOON DON'T MIX" SPENT 30 MINUTES TALKING ABOUT THE PAST. pt MORE CLEAR IN SPEECH AND THOUGHTS THAN PRIOR ASSESSMENT. ASSESSMENT DONE. CALL LIGHT WITHIN REACH. CURTAIN OPEN TO NURSES STATION. pt REPOSITIONED.
--- NOTE | 2020-09-14 02:14 | NUR ---
pt VISUALIZED FROM NURSES STATION. RESTING WITH EYES CLOSED, RESPIRATIONS REGULAR AND UNLABORED. CURTAIN OPEN TO NURSES STATION.
--- NOTE | 2020-09-14 05:01 | NUR ---
IN TO DO ASSESSMENT. pt RESTING IN BED. WOKE TO VOICE. REPOSITIONED. DEPENDS DRY. CONTRERAS CARE DONE. PROVIDED FRESH WATER. REORIENTED TO TIME. ASSESSMENT DONE. NO CHANGES FROM PRIOR ASSESSMENT. CALL LIGHT WITHIN REACH. CURTAIN OPEN TO NURSES STATION.
--- NOTE | 2020-09-14 10:35 | NUR ---
discussion at the bedside with pt and his son Wilbur about end of life care. It was discussed that it can be a difficult subject, and the pt is happy that his other family will be around to help make a care plan for his future.
--- NOTE | 2020-09-14 11:49 | NUR ---
pt is sitting up in bed visiting with his son at the bedside. pt denies pain, nausea, and sob at this time. pt denies any other needs at this time. plan made with pt for a bedbath after lunch.
--- NOTE | 2020-09-14 13:00 | NUR ---
BILAT IV SITES ARE INTACT, NO SWELLING OR REDNESS NOTED, FLUIDS AND FLUSHES INFUSE EASILY. PT REMAINS COOPERATIVE AND POLITE. ALL VITALS ARE WNL.
--- NOTE | 2020-09-14 14:20 | NUR ---
PT GIVEN A FULL BEDBATH, ALL LINENS CHANGED ON BED. PT ABLE TO ASSIST SLIGHTLY WITH ROLLING FROM SIDE TO SIDE DURING LINEN CHANGED. ALL SKIN ON BACKSIDE IS INTACT, NO RED AREAS. PT FRIDA ACTIVITY WELL. CONTRERAS CATH CARES DONE. CLEAN ATTEND AND GOWN IN PLACE. PT REMAINS COOPERATIVE.
--- NOTE | 2020-09-14 16:50 | NUR ---
Stopped and spoke with pt and his sons. Son, Wilbur has questions regarding POA and now has a copy. Per his cousin Hosea, it is financial only and he cannot speak medically for patient. Gave sons a polst form and a Advance directive to check. Son also states his uncle Hunter no longer wants to be listed as the emergency contact as he is elderly also. Sandi is very irritated by this conversation and his son states he is confused, which further irritated the pt. 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 I asked if he has ever filled out a polst as this will make it easy on his sons. He states, "Did you not hear me, I was president of the Board." I asked, did jennifer ever fill out a Polst. Son attempted to speak with him and said I don't want to have to make decision you aren't in agreement with. Pt would no longer answer questions. I left the form with the sons and encouraged them to look at them. Informed I will return tomorrow and we can review. Son asks his dad if he will be less cantankerous when I return. Pt does say he would like Wilbur Briceno, son as emergency contact. Sons number is [phone]. Email sent to [facility] to change emergency contacts.
--- NOTE | 2020-09-14 17:00 | NUR ---
full report given to Su FUNES on med/surg, all questions answered.
--- NOTE | 2020-09-14 17:10 | NUR ---
PT TAKES SINAMET PO MED WITH SOME ASSISTANCE, HE CANNOT GET PILLS INTO HIS MOUTH WITHOUT DROPPING THEM. ABLE TO SWALLOW EASILY WITH WATER. PT ASSISTED TO PUT IN DENTURES IN PREPARATION FOR DINNER. ALL PT BELONGINGS GATHERED TO MOVE PT TO ROOM 110 ON MED/SURG.
--- NOTE | 2020-09-14 17:20 | NUR ---
PT ARRIVED TO UNIT VIA STRETCHER @ 1720 ACCOMPANIED BY BULMARO FUNES. REPORT RECEIVED. PT VSS, BP SLIGHTLY ELEVATED @ 157/65. LUNGS CLEAR, DIM IN BASES. ALLEVYNS IN PLACE. ABRASION TO FOREHEAD, SCABBED OVER. RAC IV REMOVED, LEAKING. CONTRERAS OUTPUT LIGHT YELLOW. PT DENIES PAIN OR NAUSEA. DINNER TRAY ARRIVED. PT IS A FEED. THIS RN FED PT, WHO ATE 25%, TOLERATED WELL. FRIEND IN ROOM. CALL LIGHT IN REACH.
--- NOTE | 2020-09-14 17:25 | NUR ---
all pt personal belongings gathered in the room to prepair to move to med/surg room 110.
--- NOTE | 2020-09-14 19:20 | NUR ---
SHIFT REPORT RECEIVED FROM DAYSHIFT MARIN MERCADO AT BEDSIDE. pt AWAKE AND RESTING IN BED, COMPANY ALSO IN ROOM. BED ALARM ON FOR SAFETY. ALLEVYNS TO RLE REMAIN INTACT, WILL MONITOR. MARIN MERCADO REINFORCED ALLEVYN TO BACK OF RLE WITH TAPE. NO FURTHER NEEDS, CALL LIGHT IN REACH. BOARD UPDATED.
--- NOTE | 2020-09-14 20:07 | NUR ---
PT CALLED OUT, ENTERED ROOM AND HE ASKED WHEN HE IS GOING TO 110. TOLD PT HE IS IN 110. PT THEN WANTED HIS SHOES OFF, HE HAS HEEL PROTECTORS ON AND SAYS HIS FEET ARE HOT. OPENED THEM UP TO COOL HIS FEET. PT DENIES FURTHER NEEDS. CALL LIGHT IS CLOSE.
--- NOTE | 2020-09-14 21:46 | NUR ---
PT'S BED ALARM SOUNDED, PT'S FEET WERE SLIGHTLY OVER THE EDGE OF THE BED. ASKED PT WHAT HE NEEDS AND HE KEPT MENTIONING A CAN. TOLD PT THERE IS NO CAN ON HIS BED. GOT ASSISTANCE FROM ANTONIO JONES TO REPOSITION PT, ATTENDS WERE WET AND HE HAD A BM. PT NOW HAS FRESH BEDDING AND FRESH ATTENDS.CALL LIGHT IS CLOSE AND BED ALARM IS ON.
--- NOTE | 2020-09-14 22:20 | NUR ---
IN TO GET VITALS, PT OFFERED SIPS OF WATER, TAKEN WITH THE SMALLER STRAW, BED ALARM REMAINS ON AT THIS TIME
--- NOTE | 2020-09-14 22:50 | NUR ---
ASSESSMENT COMPLETE, SCHEDULED MEDS GIVEN, SEE EMAR. PER BILL FROM [id number], OKAY TO CRUSH SINEMET. MED GIVEN IN PUDDING, pt TOLERATED WELL. A/O TO SELF AND SOMEWHAT TO PLACE, COMPLIANT WITH CARE AND INTERACTIVE WITH STAFF. ALLEVYNS TO RLE REMAIN UNCHANGED, SCANT YELLOW SHADOWING NOTED. pt INCONTINENT OF URINE AND BM, WITH HELP FROM MARIN NUNN, pt CHANGED AND REOSITIONED IN BED, CLEAN ATTENDS IN PLACE, HIPS FLOATED. NO REDDNESS NOTED TO BUTTOCKS AND COCCYX. HEEL PROTECTORS ALSO IN PLACE. pt BOOSTED IN BED, BED ALARM ON FOR SAFETY, CALL LIGHT IN REACH. NO FURTHER NEEDS.
--- NOTE | 2020-09-15 00:35 | NUR ---
in to check on pt for inct, pt inct of urine and bm, with primary rn, changed and boosted pt, no further needs at this time
--- NOTE | 2020-09-15 00:35 | NUR ---
pt INCONTINENT OF SMALL AMOUNT URINE AND BM, ATTENDS CHANGED. pt REPOSITIONED IN BED, PILLOW PLACED UNDER RIGHT HIP AND BOOSTED IN BED. BILATERAL HEEL PROTECTORS REMAIN IN PLACE. CALL LIGHT IN REACH AND BED ALARM ON FOR SAFETY.
--- NOTE | 2020-09-15 01:58 | NUR ---
pt calling out, checked on pt, pt asking if we knew what we were going to eat, pt in disbelief that it was only two in the morning, offered water, no further needs
--- NOTE | 2020-09-15 03:17 | NUR ---
SAW PT SITTING UP IN BED FROM THE NURSES STATION, IN TO SEE WHAT PT NEEDED, PT WANTED TO SIT UP, RAISED HOB FOR PT, PT DENIES FURTHER NEEDS OR NEEDING SIP OF WATER,
--- NOTE | 2020-09-15 04:14 | NUR ---
ASSESSMENT COMPLETE, NO NEW CHANGES OR CONCERS. ASSISTED pt WITH PUTTING ON SOCKS PER pt REQUEST, NO FURTHER NEEDS. CALL LIGHT IN REACH AND BED ALARM ON FOR SAFETY. pt IN VIEW OF RN STATION.
--- NOTE | 2020-09-15 05:47 | NUR ---
ASSISTED KIMBERLEY RN TO CHANGE PT'S ATTENDS AND REPOSITION HIM. VS TAKEN AND PT DENIES FURTHER NEEDS. CALL LIGHT IS CLOSE AND BED ALARM IS ON.
--- NOTE | 2020-09-15 05:51 | NUR ---
VS AND I&O'S COMPLETE, pt INCONTINENT OF BOTH SOFT BM AND LARGE AMOUNT URINE. DRY ATTENDS IN PLACE, WITH HELP FROM COMMUNICATIONS AGENT DEE, pt BOOSTED IN BED AND REPOSITIONED. pt TOLERATED WELL. BLE REMAIN ELEVATED WITH PILLOWS, ALLEVYNS X4 UNCAHNGED, SCHEDULED TO BE CHANGED TODAY ON DAYSHIFT. NO FURTHER NEEDS, CALL LIGHT IN REACH AND BED ALARM ON FOR SAFETY.
--- NOTE | 2020-09-15 07:00 | NUR ---
Report received from nightshift RN. Pt resting in bed with eyes closed, resp even and unlabored. Bed alarm on, curtain open and in view of nurses station. Will continue to monitor
--- NOTE | 2020-09-15 08:20 | NUR ---
Scheduled medications administered, crushed with pudding, pt tolerates well. Assessment complete, pt oriented to self. Transferred to chair with 3PA, valerio care completed. RN in room to provide breakfast to pt.
--- NOTE | 2020-09-15 08:55 | NUR ---
PT ASSISTED TO EAT BREAKFAST, GOOD APPETITE, ATE 75%. PT DID REQUIRE TOTAL ASSISTANCE WITH FEEDING. NO S/S OF ASPIRATION.
--- NOTE | 2020-09-15 09:45 | NUR ---
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 He ask I leave as he is in a meeting. Asked if he wants to return to [facility] and he perks up and very much wants to return to [facility]. Informed I will call and speak with
--- NOTE | 2020-09-15 09:45 | NUR ---
Medication administered, pt confused but easily redirectable. Able to swallow crushed pills with pudding. PT/OT in for consult
--- NOTE | 2020-09-15 11:30 | NUR ---
Was able to reach Ailin from [facility]. Updated, pt is requiring a 2 person assist. She states he cannot return as they do not have staff for 2 person assist. They do have a kathy. We discussed placement to SNF for rehab and then return to [facility]. She is in agreement with this. Dr Ashford notified. Meeting set to speak with son's at 1300.
--- NOTE | 2020-09-15 12:04 | NUR ---
PT SITTING IN CHAIR, RATHER CONFUSED. MOSTLY MUMBLES BUT OCCASIONALLY HE WILL MAKE A STATEMENT ONE CAN UNDERSTAND. PT KNODDED YES WHEN ASKED ABOUT PRAYER. NOTICED BANDAGES ON RLE. WILL FOLLOW NEEDED
--- NOTE | 2020-09-15 13:00 | NUR ---
Spoke with pt's son's, Hosea and Thomas. They continue concerned. UPdated pt cannot return to [facility] at this time. They are aware as they had discussed with Ailin. Discussed with Sandi where he would like to go and he would like to stay in town. I asked if Kanwal is ok and he is in agreement. Informed I will call if bed space and send his chart. Sons come out of room and state concern pt remains a full code. They would like to know if they can sign paperwork to change him to DNR as he as Parkinsons and is declining. Discussed pt would need to agree or they would need to get guardianship. Returned to room with son Tigre, and spoke with pt. Asked if he would like to complete a POLST form. He cont. to state this is with the POA. Both son's state they have reviewed the POA and it is financial only. I asked Sandi if he would like to update his POLST and he states he wants to be a full code and have CPR and intubation.
--- NOTE | 2020-09-15 13:03 | NUR ---
Scheduled medication administered. Pt able to swallow 1 pill whole with pudding. CM in room.
--- NOTE | 2020-09-15 13:20 | NUR ---
Messaged [facility] and asked if they had beds. They requested the chart. Face sheet, chart note, medication list, PT/OT eval and notes.
--- NOTE | 2020-09-15 14:30 | NUR ---
pt assisted to bsc with help of p.t., pt max assist to stand pivot. pt had large bm, pericare performed. pt stand pivot to bed. pt now resting comfortably.
--- NOTE | 2020-09-15 14:50 | NUR ---
Assessment complete. Pt continues to demonstrate confusion and oriented only to self. Pt resting in bed, grasping at bed rails but generally redirectable. VSS. Bed alarm on, in view of nurses station. Will continue plan of care.
--- NOTE | 2020-09-15 15:00 | NUR ---
Notified by Sara, only the first two sheets arrived, refaxed chart.
--- NOTE | 2020-09-15 16:47 | NUR ---
PT REMAINS CONFUSED THIS SHIFT, ORIENTED ONLY TO SELF AND REQUIRES FREQUENT REDIRECTION. UP TO CHAIR FOR MEALS, 2-3P ASSIST FOR PIVOT TRANSFERS, USES BSC. INCONTINENT OF BM/URINE. VSS. IV WNL, SALINE LOCKED. ALLEVYNS TO LEG SORES CHANGED 09/15. ASSISTANCE WITH FEEDING NEEDED, TAKES SMALL PILLS WHOLE OR LARGE CRUSHED, BOTH WITH PUDDING. CASE MANAGEMENT INVOLVED IN PLACEMENT. BED ALARM ON.
--- NOTE | 2020-09-15 18:04 | NUR ---
DRESSING CHANGE COMPLETED TO RIGHT LOWER LEG, SEE WOUND DOCUMENTATION. PT ASSISTED TO CHAIR FOR DINNER, PT UNABLE TO FOLLOW COMMANDS AND WAS UNSAFE TO STAND PIVOT, DON LIFT USED FOR SAFETY, CHAIR ALARM IN PLACE.
--- NOTE | 2020-09-15 18:05 | NUR ---
Scheduled medication administered. Pt sitting up in chair, elevated legs with leg rest and pillow. Chair alarm in place. Pt confused but directable. No apparent needs at this time
--- NOTE | 2020-09-15 19:25 | NUR ---
SHIFT REPORT RECEIVED FROM DAYSHIFT MARIN ZIEGLER AT BEDSIDE, pt IN BED AND BEING CLEANED FROM RECENT BM, NO DISTRESS NOTED. BOARD UPDATED, CALL LIGHT IN REACH.
--- NOTE | 2020-09-15 20:01 | NUR ---
HEARD PT TALKING, IN TO CHECK ON PT, PT WAS TELLING A STORY TO HIMSELF, NO FURTHER NEEDS
--- NOTE | 2020-09-15 21:00 | NUR ---
charge nurse rounding note. pt resting in bed, talking to himself. business writer to room. pt mumbling about going shopping. denies needs at this time. bed alarm active. white board updated. call light in reach, room in view of rn station.
--- NOTE | 2020-09-15 22:15 | NUR ---
IN TO GET VITALS, I&Os DONE, RN IN WITH PM MEDS AND TO ASST WITH CHANGING PT, NO FURTHER NEEDS
--- NOTE | 2020-09-15 22:30 | NUR ---
ASSESSMENT COMPLETE, SCHEDULED MEDS GIVEN. SINEMET CRUSHED AND GIVEN IN PUDDING. PO PEPCID GIVEN WHOLE AND IN PUDDING, NO ISSUES OR SIGNS OF CHEEKING NOTED. HOB ELEVATED. VSS. pt INCONTINENT OF URINE, WITH HELP FROM ROBERT ALVAREZ, RAZ CARE DONE AND DRY ATTENDS IN PLACE. pt BOOSTED AND REPOSITIONED IN BED, PILLOW PLACED UNDER LEFT HIP AND RIGHT ARM. NO FURTHER NEEDS, CALL LIGHT IN REACH. IV SITE WNL, FLUSHES EASILY. NO LEAKING OR SIGNS OF INFILTRATION NOTED. BED ALARM ON FOR SAFETY, pt IN VIEW OF RN STATION.
--- NOTE | 2020-09-16 00:23 | NUR ---
pt RESTING QUIETLY IN BED WITH EYES CLOSED, RR EVEN AND UNLABORED. NO DISTRESS NOTED, CALL LIGHT IN REACH AND BED ALARM ON FOR SAFETY.
--- NOTE | 2020-09-16 01:47 | NUR ---
pt REPOSITIONED IN BED, PILLOW PLACED UNDER RIGHT SIDE. ATTENDS DRY AT THIS TIME. ALLEVYNS X2 TO BACK OF CALF FELL OFF, WOUND CLEANED AND NEW ALLEVYNS X2 IN PLACE PER MD ORDERS. CALL LIGHT IN REACH AND BED ALARM ON FOR SAFETY. pt REMAINS IN VIEW OF RN STATION.
--- NOTE | 2020-09-16 01:47 | NUR ---
IN TO TURN PT WITH RN, ASST RN WITH NEW ALLYEVEN PLACEMENT, NO FURTHER NEEDS AT THIS TIME, BED ALARM ON
--- NOTE | 2020-09-16 05:01 | NUR ---
pt HAD A GOOD NIGHT, SLEPT OFF AND ON THIS SHIFT. A/O TO SELF AND PLACE, BED ALARM ON FOR SAFETY. VSS, pt DENIED PAIN AND NAUSEA. REQUIRES ASSISTANCE WITH FEEDING, 2G SODIUM DIET, TOLERATING WELL. EATS APPROX 50-75% MEALS. 3P MAX ASSIST, DON AT TIMES. INCONTINENT OF URINE AND AT TIMES BM. IV SITE WNL, SALINE LOCKED.
--- NOTE | 2020-09-16 06:00 | NUR ---
pt INCONTINENT OF LARGE AMOUNT URINE, ALSO VOIDED X1 WHILE CHANGING ATTENDS. RAZ CARE DONE, DRY ATTENDS IN PLACE. WITH HELP FROM ROBERT DAVIS. pt REPOSIIONED IN BED, PILLOW PLACED UNDER LEFT HIP AND RIGHT SHOULDER. NO REDDNESS NOTED TO BUTTOCKS/COCCYX. BLE ELEVATED WITH HEEL PROTECTORS IN PLACE. ROBERT DAVIS IN ROOM COLLECTING VS.
--- NOTE | 2020-09-16 06:12 | NUR ---
PATIENT WAS ABLE TO TELL THIS CHILD CARE TEAM LEAD THAT HIS DEPENDS WAS WET. DRY ATTENDS GIVEN. VITALS COMPLETED. PATIENT STATES THAT HE IS GOING TO TAKE A NAP BEFORE HIS MORNING COFFEE.
--- NOTE | 2020-09-16 07:00 | NUR ---
BEDSIDE HANDOFF REPORT RECEIVED FROM BLU STUBBS RN. PT SLEEPING, LEFT UNDISTURBED.
--- NOTE | 2020-09-16 09:27 | NUR ---
LUCINDA FROM [facility] CALLED, PLANS TO COME VISIT KELLY ON Friday09/17/20 AND DISCUSS WHEN HE WILL BE ABLE TO RETURN TO [facility] (PERHAPS AFTER [facility] STAY). DISCUSSED WITH LUCINDA THAT KELLY WAS MAKING IMPROVEMENTS AND IS FEEDING HIMSELF BREAKFAST THIS MORNING.
--- NOTE | 2020-09-16 09:45 | NUR ---
PT SITTING IN CHAIR. PT MORE ORIENTED TODAY, ONLY DISORIENTED TO DATE BY A FEW DAYS OFF. PT ON ROOM AIR, LUNG SOUNDS CLEAR, DENIES SOB. PT ABLE TO SELF FEED FOR BREAKFAST, GOOD APPETITE, DENIES NAUSEA, BOWEL TONES ACTIVE. PT WTH NUMBNESS IN BILATERAL FEET, STATES HE HAS AT BASELINE, CMS OTHERWISE INTACT. PT WITH 1+ EDEMA TO BLE. DRESSINGS TO RIGHT LEG INTACT. IV SALINE LOCKED. PT ABLE TO SWALLOW MEDICATIONS WITHOUT DIFFICULTY. DISCUSSED PLAN FOR P.T. TODAY. PT PROVIDED WARM BLANKET, DENIES OTHER NEEDS AT THIS TIME.
--- NOTE | 2020-09-16 12:44 | NUR ---
PT ASSISTED FROM CHAIR TO BATHROOM AND THEN TO BED. PT WITH SMALL AMOUNT OF BLEEDING, FROM LOWER INCISION, REINFORCED WITH GAUZE. PT DENIES OTHER NEEDS AT THIS TIME.
--- NOTE | 2020-09-16 13:34 | NUR ---
PATIENT TO BED FROM CHAIR, 2PBrandon OCHOA. PATIENT STOOD UP FROM CHAIR BUT WAS NOT ABLE TO MOVE FEET ENOUGH TO TRANSFER TO BED. INCT. EPISODE, RAZ CARE DONE NEW ATTENDS IN PLACE. VITALS AND I&O'S CHARTED. CALL LIGHT IN REACH. BED ALARM ON. NO FURTHER NEEDS AT THIS TIME. FRESH WATER GIVEN.
--- NOTE | 2020-09-16 15:05 | NUR ---
PT NEPHEW JOSE LEE DOCUMENTS IN, COPY MADE AND PLACED IN PHYSICAL CHART UNDER MISCELLANEOUS TAB. PT REQUESTING NEPHEW TO TAKE WATCH HOME TO BE WITH OTHER VALUABLES, GIVEN TO NEPHEW. PT DENIES OTHER NEEDS AT THIS TIME. UPDATED ON PLAN OF CARE AND DISCHARGE PLAN.
--- NOTE | 2020-09-16 15:23 | NUR ---
PT INCONTINENT OF URINE, PERICARE PERFORMED. PT WITH BLANCHABLE REDNESS TO COCCYX/SACRUM, NO OPEN SKIN, ALLEVYN APPLIED. RIGHT CALF DRESSING FELL OFF, DRESSINGS CHANGED. IV CATH REMOVED, MD SWIFT FOR NO IV ACCESS. PT REPOSITIONED IN BED. PT DENIES OTHER NEEDS AT THIS TIME.
--- NOTE | 2020-09-16 18:37 | NUR ---
PATIENT SITTING UP IN BED WATCHING TV. VITALS AND I&O'S CHARTED. RAZ CARE DONE. NEW GOWN. CALL LIGHT IN REACH. NO FURTHER NEEDS AT THIS TIME. BED ALARM ON.
--- NOTE | 2020-09-16 19:20 | NUR ---
RECEIVED REPORT FROM MARIN LEIVA. pt RESTING IN BED. REQUESTED FRESH WATER, SWING SAW OPERATOR NOTIFIED. CALL LIGHT WITHIN REACH. WHITEBOARD UPDATED. CURTAIN OPEN TO THE NURSES STATION.
--- NOTE | 2020-09-16 21:16 | NUR ---
IN TO DO ASSESSMENT. pt ORIENTED TO SELF, MONTH AND YEAR, PLACE. INCORRECT ON DAY. REORIENTED. DENIES PAIN AT THIS TIME. REMEMBERED THAT HE SHOULD BE GETTING SINMET. MEDICATIONS GIVEN (SEE MAR). ASSESSMENT DONE. REPOSITIONED. FRESH WATER PROVIDED. CALL LIGHT WITHIN REACH. CURTAIN OPEN TO NURSES STATION.
--- NOTE | 2020-09-16 23:00 | NUR ---
IN TO CHECK pt. DEPENDS WET, CHANGED, BM. LINENS CHANGED, FRESH DEPENDS, PERICARE. REPOSITIONED. APPLIED NEW ALLEVYN TO THE BACK OF RIGHT LEG. NO FURTHER REQUESTS AT THIS TIME. CALL LIGHT WITHIN REACH. CURTAIN OPEN TO NURSES STATION.
--- NOTE | 2020-09-17 00:54 | NUR ---
ROUNDED ON pt. RESTING IN BED WITH EYES CLOSED, SNORING. RESPIRATIONS REGULAR. pt HAS REPOSITIONED SELF. CALL LIGHT WITHIN REACH. CURTAIN OPEN TO NURSES STATION.
--- NOTE | 2020-09-17 01:16 | NUR ---
HEARD BED RAILS RATTLING, IN TO ASSESS. pt RESTING IN BED WITH EYES CLOSED, RESPIRATIONS REGULAR. WOKE TO VOICE. WAS ABLE TO OPEN EYES AFTER A FEW SECONDS. DENIED FEELING THAT HIS TONGUE WAS SWOLLEN. NO SWELLING NOTED. pt FELT THE WOUND ON HIS HEAD AND ASKED ABOUT IT. NO CHANGES NOTED FROM PRIOR ASSESSMENT. pt CHANGED AND REPOSTIONED. BED ALARM ON. CALL LIGHT WITHIN REACH. CURTAIN OPEN TO THE NURSES STATION. pt ORIENTED TO SELF AND PLACE.
--- NOTE | 2020-09-17 03:00 | NUR ---
pt RESTING IN BED WITH EYES CLOSED, SNORING. RESPIRATIONS REGULAR AND UNLABORED. CURTAIN OPEN TO NURSES STATION.
--- NOTE | 2020-09-17 06:51 | NUR ---
pt WOKE. DEPENDS CHANGED. SOFT BM NOTED, INCONT OF URINE. ASSESSMENT DONE. NO CHANGES. NEW ALLEVYN TO BACK OF RIGHT LEG. pt REQUESTED THE SHADES BE PULLED, DONE. NO FURTHER REQUESTS CALL LIGHT WITHIN REACH.
--- NOTE | 2020-09-17 07:45 | NUR ---
PT AWAKE AND ALERT. FACE WASHED AND ATTENDS CHANGED. TRANSFERRED TO CHAIR W/ DON W/ ASSISTANCE OF JAIRON JONES. VSS. MORNING MEDICATIONS GIVE. LUNG SOUNDS CLEAR BUL, DIMINISHED IN BASES. ACTIVE BOWEL TONES AND PASSING GAS. BREAKFAST TRAY ARRIVED AND FOOD CUT FOR PT. CALL LIGHT IN REACH. NO OTHER NEEDS AT THIS TIME.
--- NOTE | 2020-09-17 08:45 | NUR ---
PT ATE 100% OF BREAKFAST. HAS GOOD APPETITE. ALLEVYN ON LOWER RIGHT CALF REINFORCED. PT DENIES PAIN OR NAUSEA. SITTING UP IN CHAIR WATCHING TV. CALL SCHUSTER IN REACH.
--- NOTE | 2020-09-17 12:30 | NUR ---
PT CONTINUES TO TOLERATE SITTING UP IN CHAIR. EATING LUNCH. DENIES FURTHER NEEDS AT THIS TIME.
--- NOTE | 2020-09-17 14:00 | NUR ---
IN TO ASSIST PT BACK TO BED VIA DON WITH 2 PA. PT HAD EXL BM, INCONTINENT OF URINE AND STOOL. ALLEVYN TO COCCYX SOILED, CHANGED, APPLIED TO SACRUM FOR PREVENTATIVE MEASURES PER REPORT, NO SKIN BREAKDOWN OR REDNESS NOTED. PT REPOSITIONED IN BED. FRIEND BLAINE IN ROOM. CALL LIGHT IN REACH.
--- NOTE | 2020-09-17 16:25 | NUR ---
PT RESTING IN BED, EYES CLOSED. VISUALIZED CHEST RISE AND FALL.
--- NOTE | 2020-09-17 16:45 | NUR ---
PT CALLING TO BE CHANGED. STATES HE'S BRIEFS ARE WET. PT INCONTINENT OF URINE. ATTENDS CHANGED, ALLEVYN ON COCCYX REMAINS INTACT. CALL LIGHT IN REACH. PT CALLS APPROPRIATELY.
--- NOTE | 2020-09-17 18:11 | NUR ---
PT EATING DINNER. REQUIRES SET UP AND PRE-CUT FOODS. OTHERWISE IS ABLE TO FEED SELF AND HAS GOOD APPETITE. NO FURTHER NEEDS AT THIS TIME. CALL LIGHT IN REACH.
--- NOTE | 2020-09-17 19:15 | NUR ---
BEDSIDE REPORT RECEIVED FROM OFFGOING RN. PT RESTING IN BED AWAKE. DENIES NEEDS. CALL LIGHT IN REACH. BED ALARM ACTIVE. ROOM IN VIEW OF RN STATION WITH CURTAIN OPEN.
--- NOTE | 2020-09-17 20:09 | NUR ---
PT ASSESSMENT COMPLETE. PT RESTING IN BED WITH EYES CLOSED. WAKES EASILY TO NAME STATED B [employer]. PT DENIES PAIN, NAUSEA OR SOB. PT DISORIENTED TO EXACT DATE, OTHERWISE ORIENTED. ABLE TO APPROPRIATELY STATE MONTH AND YEAR. ALLEVYN FOAM DRESSING TO COCCYX AND RLE NOTED. PT TAKES SCHEDULED MEDICATIONS. ABLE FEED HIMSELF PUDDING AFTERWARDS WITH MINIMAL ASSISTANCE. PT REPORTS OCCASION AL TREMOR. PT DENIES FURTHER NEEDS AT THIS TIME. CALL LIGHT IN REACH. BEDALARM ACTIVE. ROOM IN VIEW OF RN STATION.
--- NOTE | 2020-09-18 00:57 | NUR ---
PT RESTING IN BED WITH EYES CLOSED. SNORING AUDIBLY FROM RN STATION. CALL LIGHT IN REACH. ROOM IN VIEW OF RN STATION. BED ALARM ACTIVE.
--- NOTE | 2020-09-18 02:29 | NUR ---
PT RESTING IN BED WITH EYES CLOSED. RESPIRATIONS EVEN AND UNLABORED. PT APPEARS TO BE SLEEPING. CALL LIGHT IN REACH.
--- NOTE | 2020-09-18 03:21 | NUR ---
THIS [employer] SERVICE TEAM MEMBER AND PRIMARY RN SARAH CHANGED PATIENT'S INCONTINENT ATTENDS. WIPED/CLEANED AND PLACED FRESSH ONE. PATIENT REPOSITIONED. PRIMARY RN WAS WITH PATIENT.
--- NOTE | 2020-09-18 03:30 | NUR ---
PT ASSESSMENT COMPLETE. PT LYING IN BED AWAKE. ALERT AND ORIENTED. CANNOT ACCURATELY STATE DATE BUT KN OWS MONTH AND YEAR. PT DENIES PAIN, NAUSEA, OR SOB. ATTENDS CHANGED. PT INCONTINENT OF URINE. ALLEVYN FOAM TO COCCYX AND RLE INTACT. PT STATES HE IS NOT READY TO GO BACK TO SLEEP YET. PT GIVEN TV REMOTE PER REQUEST. ASSISTED TO TURN TV. DENIES OTHER NEEDS AT THIS TIME. CALL LIGHT IN REACH. BED ALARM ACTIVE. ROOM IN VIEW OF RN STATION WITH CURTAIN OPEN.
--- NOTE | 2020-09-18 04:32 | NUR ---
PT RESTING IN BED WITH EYES CLOSED. RESPIRATIONS EVEN AND UNLABORED. PT SNORING AUDIBLY FROM RN STATION. CALL LIGHT IN REACH. BED ALARM ACTIVE. ROOM IN VIEW OF RN STATION.
--- NOTE | 2020-09-18 06:14 | NUR ---
THIS CHAIN MAKER HAND AND HAT PARTS CUTTER MACHINE TO ROOM TO CHANGE ATTENDS, PT INCONTINENT OF URINE. PT TOLERATED TURNING WELL. ALERT AND ORIENTED. NEW ALLEVYN FOAM PLACED TO BACK OF R CALF. PT DENIES FURTHER NEEDS AT THIS TIME. CALL LIGHT IN REACH. BED ALARM ACTIVE. ROOM IN VIEW OF RN STATION WITH CURTAIN OPEN.
--- NOTE | 2020-09-18 07:30 | NUR ---
REPORT RECEIVED FROM SARAH RIGHT SHIFT RN. PT IN BED, EYES CLOSED, AUDIBLY SNORING. BLE ELEVATED.
--- NOTE | 2020-09-18 09:30 | NUR ---
IN TO GIVE PT MORNING MEDICATIONS. PT IS SITTING UP IN CHAIR WORKING WITH KOMAL HUGO. PT CURRENTLY HAVING BM IN CHAIR, AUDREY JONES IN TO ASSIST. 3 PERSON ASSIST W/ FWW, PT CLEANED WHILE STANDING, TOLERATED MODERATELY WELL. PT HAD SOFT EXL BM. PT BACK TO CHAIR. VITAL SIGNS TAKEN, BP ON MONITOR LOW 100/48, MANUAL BP TAKEN 130/58. MORNING MEDS GIVEN, ASSESSMENT COMPLETE. PT IS ALERT & ORIENTED TO EVERYTHING EXCEPT A COUPLE DAYS OFF ON DATE. RONNY ESTRELLA UP TO ROOM TO VISIT. PT REMAINS UP IN CHAIR WITH BLE ELEVATED W/ PILLOW. CALL LIGHT IN REACH.
--- NOTE | 2020-09-18 10:15 | NUR ---
RAPID SWAB COLLECTED
--- NOTE | 2020-09-18 10:44 | NUR ---
SPOKE WITH DR DUONG WHO STATES PATIENT IS READY FOR DISCHARGE TO SNF. HE STILL FEELS HE NEEDS CONTINUED THERAPY TO SAFELY RETURN HOME TO [facility]. SPOKE WITH PATIENT IN ROOM. HE IS UP IN CHAIR EATING CANDY. SON DELORES IS IN ROOM. PATIENT STATES HE IS AWARE HE IS LINED UP TO GO TO SNF AT [facility]. HE STATES HE HAS BEEN THERE BEFORE. HE IS AWARE HE NEEDS CONTINUED PHYSICAL THERAPY. HE AND SON DISCUSSED WHAT THINGS HE WANTED TO BE BROUGHT TO THE FACILITY. I ENCOURAGED COMFORTABLE CLOTHES, SHOES FOR WALKING, UNDERCLOTHES, AND IF HE WANTS A SPECIAL PILLOW OR BLANKET FOR HIS BED. THEY ARE DISCUSSING. SON GAVE ME A PAPER WITH NAME OF HIS COUSIN WHO LIVES IN [place] AND IS DURABLE POA AND HE CAN PROVIDE ANYTHING FINANCIAL PATIENT NEEDS DONE. ALSO IS HIS OWN CONTACT NUMBER. HE LIVES IN [place]. ANOTHER SON LIVES IN [place]. I DISCUSSED I WILL SEND A COPY TO [facility]. QUESTIONS ANSWERED. WE WENT OVER AGAIN WHAT MEDICARE COVERS AND SUPPLEMENT. RETURNED TO OFFICE AND FOUND MESSAGE FROM AQU[facility] AT [facility] ASKING FOR CURRENT NURSES NOTES AND THERAPY NOTES. FAXED TO THEM WERE 24 HOURS NURSES NOTES/WEEKEND PROG NOTES AND PT NOTES/CURRENT MEDS GIVEN. FAX CONFIRMATION RECEIVED 1045AM.
--- NOTE | 2020-09-18 10:51 | NUR ---
In to visit with Mr. Briceno today, he is very happy with his care, he is disappointed that he will be going to [facility] instead of back to [facility]. His son is in the room with him at this time. The goal for Mr. Briceno is to get stronger and return to [facility].
--- NOTE | 2020-09-18 12:39 | NUR ---
RECEIVED TEXT FROM [facility] ADMITTING STATING THEY CAN TAKE PATIENT TODAY. ORDERS FAXED. CONFIRMATION AT 1233PM.
--- NOTE | 2020-09-18 12:52 | NUR ---
ORDERS, PASSR COPIED AND PLACED IN CHART. ORIGINALS AND CLINICALS IN LARGE ENVELOPE LEFT AT NURSES STATION. PATIENT WILL GO VIA [facility] WHEN FACILITY IS READY.
--- NOTE | 2020-09-18 14:15 | NUR ---
PT TO DC TODAY TO [facility]. PT IS ALERT, MUCH MORE ORIENTED TODAY. SPEAKS CLEARLY, BUT SOFTLY. SON DELORES IN , WILL FOLLOW PT TO [facility]. PT A LITTLE DISCOURAGED, GAVE COMFORT AND HAD PRAYER WITH PT. WILL FOLLOW NEEDED
--- NOTE | 2020-09-18 16:00 | NUR ---
AFTERNOON ASSESSMENT COMPLETE. REPORT CALLED TO RIANNA FUNES AT [facility] @ [phone]. PT VSS. DC PACKET SENT W/ PT TO [facility]. PT HOYERED TO WHEELCHAIR, JENNIFER MANDUJANOED @ 1600.
== END 2020-09-18 15:56 | DRG 915 ==
LOC: ED 10:21 → MS 17:16 → CCU 17:16 → MS 09-14 17:30
PROVIDERS: ADMIT Student in an Organized Health Care Education/Training Program; ATTEND Student in an Organized Health Care Education/Training Program
PROC: 5A1945Z Respiratory Ventilation, 24-96 Consecutive Hours (ICD-10-PCS; principal; 2020-09-11)
DX: T78.3XXA Angioneurotic edema, initial encounter (principal); J96.01 Acute respiratory failure with hypoxia; Z20.822 Contact with and (suspected) exposure to COVID-19; T50.1X5A Adverse effect of loop [high-ceiling] diuretics, initial encounter; I10 Essential (primary) hypertension; J44.9 Chronic obstructive pulmonary disease, unspecified; N40.0 Benign prostatic hyperplasia without lower urinary tract symptoms; G20 Parkinson's disease; G25.5 Other chorea; Z78.1 Physical restraint status; Z79.899 Other long term (current) drug therapy; Z79.51 Long term (current) use of inhaled steroids
CPT/HCPCS: 31500; 31720; 36415; 36600; 70450; 71045; 73502; 80048; 80053; 81001; 82803; 83735; 84484; 85025; 86160; 87070; 87077; 87088; 87205; 94002; 94003; 94660; 94667; 94668; 97110; 97162; 97167; 97535; C9803; J0171; J0330; J1100; J1200; J1650; J2704; J2920; J2930; J3010; J7121; U0003

== ENCOUNTER 2020-10-23 19:45 | Emergency (ER) | payer MEDICARE, BC ==
[~2020-10-23] VITALS: Ht 182.9 cm; Wt 84.8 kg
[~2020-10-23 19:45] MED LIST changes: +CITRUCEL479 GM PO
--- OUTSIDE RECORDS SUMMARY | 2020-10-23 20:54 | XMS ---
PreManage Notification: KELLY EARLY Security Health Outcomes Liaison Events No recent Security Events currently on file CRITERIA MET - Group Notification - [facility] CARE PROVIDERS DERIK MENDOZA Applications Scientist Current AMOL SANDS F PHONE: [phone] [facility] Retirement [facility] [employer]. \F\ ImpactiaTAHOKA FLORENTIN PHONE: [phone] SRAVANTHI CASTELLANOS Internal Medicine Current PHONE: [phone] NUBIA MENDES Nurse Practitioner Current PHONE: [phone] JEFF JIN Nurse Practitioner: Family Current PHONE: Unknown Nurse SHERRIE Practitioner Anna HERNANDEZ PHONE: [phone] FISH TUBBS Internal Medicine 08/19/2019-Current PHONE: Unknown DESTINY ASKEW [facility] Current PHONE: Unknown Helen has no Care Guidelines for this patient. Care History Medical/Surgical 03/09/2020 [facility] Patient having syncope and seeing blood in stool.\T\nbsp; Dr. Tubbs has sent referral to Dr. Evangelista. 08/19/2019 [facility] - Patient is currently established with [facility]. If patient is seen in the ED during business hours. Please contact CHWs at [facility]. Care Recommendation: If this patient has had [...] providing care. E.D. VISIT COUNT (12 MO.) 9 [facility]. TOTAL 9 NOTE: Visits indicate total known visits. ED/UCC VISIT TRACKING (12 MO.) 10/23/2020 19:[address] [facility] [facility] [place] TYPE: Emergency COMPLAINT: - PASSED OUT 09/11/2020 10:[address] [facility] [place] TYPE: Emergency COMPLAINT: - SHAKING, ALTERED MENTAL STATUS 09/08/2020 11:03 [facility] [place] [facility] [place] TYPE: Emergency COMPLAINT: - MULTIPLE COMPLAINTS DIAGNOSES: - Localized edema - Chronic obstructive pulmonary disease, unspecified - Other superintendent container terminal (current) drug therapy - Strain of muscle, fascia and tendon of right hip, initial encounter - Exposure to other specified factors, initial encounter 09/03/2020 05:59 [facility] [place] [facility] [place] TYPE: Emergency COMPLAINT: - HIP PAIN DIAGNOSES: - Other chronic pain - Other superintendent container terminal (current) drug therapy - Pain in right hip - Localized edema - Chronic obstructive pulmonary disease, unspecified 07/31/2020 02:[address] [facility] [place] TYPE: Emergency COMPLAINT: - CONSTIPATION 03/08/2020 11:00 [facility] [place] TYPE: Emergency COMPLAINT: - WEAK DIAGNOSES: - Hypokalemia - Melena - Chronic obstructive pulmonary disease, unspecified - Other correction (current) drug therapy - Parkinson's disease - Weakness 03/07/2020 18:35 [facility] [place] TYPE: Emergency COMPLAINT: - RECTAL BLEEDING DIAGNOSES: - Hemorrhage of anus and rectum - Chronic obstructive pulmonary disease, unspecified - Other correction (current) drug therapy - Parkinson's disease 03/05/2020 08:07 [facility] [place] TYPE: Emergency COMPLAINT: - WEAKNESS DIAGNOSES: - Constipation, unspecified - Chronic obstructive pulmonary disease, unspecified - Parkinson's disease - Urinary tract infection, site not specified - Other correction (current) drug therapy - Weakness 03/04/2020 07:40 [facility] [place] TYPE: Emergency COMPLAINT: - WEAKNESS DIAGNOSES: - Parkinson's disease - Other correction (current) drug therapy - Localized edema - Chronic obstructive pulmonary disease, unspecified - Retention of urine, unspecified - Other difficulties with micturition INPATIENT VISIT TRACKING (12 MO.) 09/11/2020 17:16 [facility] [place] TYPE: Medical Surgical COMPLAINT: - ANGIO EDEMA DIAGNOSES: - Chronic obstructive pulmonary disease, unspecified - Physical restraint status - Essential (primary) hypertension - Other chorea - Parkinson's disease - Adverse effect of loop [high-ceiling] diuretics, initial encounter - Acute respiratory failure with hypoxia - Other superintendent container terminal (current) drug therapy - emt intermediate (current) use of inhaled steroids - Angioneurotic edema, initial encounter - Benign prostatic hyperplasia without lower urinary tract symptoms 07/31/2020 09:[address] [facility] [place] TYPE: Medical Surgical COMPLAINT: - ABD PAIN CONSTIPATION DIAGNOSES: - Metabolic encephalopathy - Benign prostatic hyperplasia with lower urinary tract symptoms - Fecal impaction - Other specified noninfective gastroenteritis and colitis - alf (current) use of inhaled steroids - Parkinson's disease - Essential (primary) hypertension - Chronic obstructive pulmonary disease, unspecified - Age-related physical debility - Other retention of urine - Other superintendent container terminal (current) drug therapy [email or web address]
--- NOTE | 2020-10-24 03:15 | EKG ---
[facility] [address] [place] [address] Signed Sinus rhythm with 1st degree AV block Right bundle branch block Left anterior fascicular block Bifascicular block Left ventricular hypertrophy with repolarization abnormality Abnormal ECG When compared with ECG of 08-SEP-2020 11:15, No significant change was found Confirmed by JABARI JOSEPH MD ([id number]) on 10/24/2020 3:15:15 AM Electronically Signed By: JABARI JOSEPH MD 10/24/20 0315 PATIENT NAME: KELLY EARLY Electrocardiogram DATE OF : 34 PHYSICIAN: JABARI JOSEPH MD REPORT #: [id number] REPORT IS CONFIDENTIAL AND NOT TO BE RELEASED WITHOUT AUTHORIZATION
== END 2020-10-23 23:51 | disposition home or self-care (01) ==
LOC: ED 19:45
DX: R55 Syncope and collapse (principal); J44.9 Chronic obstructive pulmonary disease, unspecified; Z79.899 Other long term (current) drug therapy
CPT/HCPCS: 80053; 83735; 84484; 85025; 93005; 93010; 96360; 99284-25; J7121

== ENCOUNTER 2020-11-03 11:07 | Emergency (ER) | payer MEDICARE, BC ==
[~2020-11-03] VITALS: Ht 182.9 cm; Wt 84.8 kg
--- OUTSIDE RECORDS SUMMARY | 2020-11-03 11:10 | XMS ---
PreManage Notification: KELLY EARLY Security Cinder Pitman Events No recent Security Events currently on file CRITERIA MET - Group Notification - 6 ED Visits in 6 Months - [facility] - Has Care Guidelines - [facility] - 2 Visits in 30 Days CARE PROVIDERS DERIK MENDOZA Prep Personjulian Lieberman PHONE: [phone] [facility] Senior Care Facility [facility] [employer]. \FRyley [facility] PHONE: [phone] SRAVANTHI CASTELLANOS Internal Medicine Current PHONE: [phone] NUBIA MENDES Nurse Practitioner Current PHONE: [phone] JEFF JIN Nurse Practitioner: Family Current PHONE: Unknown SHERRIE Nurse Practitioner Current MEJIA MARY PHONE: [phone] FISH TUBBS Internal Medicine 08/19/2019-Current PHONE: Unknown DESTINY ASKEW Family [facility] Current PHONE: Unknown Helen has no Care Guidelines for this patient. Care History Medical/Surgical 03/09/2020 [facility] Patient having syncope and seeing blood in stool.\T\nbsp; Dr. Tubbs has sent referral to Dr. Evangelista. 08/19/2019 [facility] - Patient is currently established with [facility]. If patient is seen in the ED during business hours. Please contact CHWs at [facility]. Care Recommendation: If this patient has [...] providing care. E.D. VISIT COUNT (12 MO.) 10 [facility]. TOTAL 10 NOTE: Visits indicate total known visits. ED/UCC VISIT TRACKING (12 MO.) 11/03/2020 11:08 [facility] [place] TYPE: Emergency COMPLAINT: - WEAKNESS 10/23/2020 19:46 [facility] [place] TYPE: Emergency COMPLAINT: - DIZZINESS DIAGNOSES: - Other press tender long goods (current) drug therapy - Syncope and collapse - Dizziness and giddiness - Chronic obstructive pulmonary disease, unspecified 09/11/2020 10:22 [facility] [place] TYPE: Emergency COMPLAINT: - SHAKING, ALTERED MENTAL STATUS 09/08/2020 11:03 [facility] [place] TYPE: Emergency COMPLAINT: - MULTIPLE COMPLAINTS DIAGNOSES: - Localized edema - Chronic obstructive pulmonary disease, unspecified - Other retirement (current) drug therapy - Strain of muscle, fascia and tendon of right hip, initial encounter - Exposure to other specified factors, initial encounter 09/03/2020 05:59 [facility] [place] TYPE: Emergency COMPLAINT: - HIP PAIN DIAGNOSES: - Other chronic pain - Other retirement (current) drug therapy - Pain in right hip - Localized edema - Chronic obstructive pulmonary disease, unspecified 07/31/2020 02:38 [facility] [place] TYPE: Emergency COMPLAINT: - CONSTIPATION 03/08/2020 11:00 [facility] [place] TYPE: Emergency COMPLAINT: - WEAK DIAGNOSES: - Hypokalemia - Melena - Chronic obstructive pulmonary disease, unspecified - Other press tender long goods (current) drug therapy - Parkinson's disease - Weakness 03/07/2020 18:35 [facility] [place] TYPE: Emergency COMPLAINT: - RECTAL BLEEDING DIAGNOSES: - Hemorrhage of anus and rectum - Chronic obstructive pulmonary disease, unspecified - Other retirement (current) drug therapy - Parkinson's disease 03/05/2020 08:07 [facility] [place] TYPE: Emergency COMPLAINT: - WEAKNESS DIAGNOSES: - Constipation, unspecified - Chronic obstructive pulmonary disease, unspecified - Parkinson's disease - Urinary tract infection, site not specified - Other press tender long goods (current) drug therapy - Weakness 03/04/2020 07:40 [facility] [place] TYPE: Emergency COMPLAINT: - WEAKNESS DIAGNOSES: - Parkinson's disease - Other press tender long goods (current) drug therapy - Localized edema - [...] Acute respiratory failure with hypoxia - Other retirement (current) drug therapy - director long term care (current) use of inhaled steroids - Angioneurotic edema, initial encounter - Benign prostatic hyperplasia without lower urinary tract symptoms 07/31/2020 09:46 [facility] [place] TYPE: Medical Surgical COMPLAINT: - ABD PAIN CONSTIPATION DIAGNOSES: - Metabolic encephalopathy - Benign prostatic hyperplasia with lower urinary tract symptoms - Fecal impaction - Other specified noninfective gastroenteritis and colitis - penitentiary (current) use of inhaled steroids - Parkinson's disease - Essential (primary) hypertension - Chronic obstructive pulmonary disease, unspecified - Age-related physical debility - Other retention of urine - Other press tender long goods (current) drug therapy [email or web address]
[2020-11-03] MEDS ORDERED: K-TAB ER20 MEQ PO (13:57)
== END 2020-11-03 14:45 | disposition home or self-care (01) ==
LOC: ED 11:07
DX: E87.6 Hypokalemia (principal); G20 Parkinson's disease; J44.9 Chronic obstructive pulmonary disease, unspecified; Z79.899 Other long term (current) drug therapy
CPT/HCPCS: 71045; 80053; 84484; 85025; 99285-25; J7040

== ENCOUNTER 2020-11-05 10:39 | Emergency (ER) | payer MEDICARE, BC ==
[~2020-11-05] VITALS: Ht 182.9 cm; Wt 84.8 kg
--- OUTSIDE RECORDS SUMMARY | 2020-11-05 10:42 | XMS ---
PreManage Notification: KELLY EARLY Security Linesperson Events No recent Security Events currently on file CRITERIA MET - Group Notification - 6 ED Visits in 6 Months - [facility] - Has Care Guidelines - [facility] - 2 Visits in 30 Days CARE PROVIDERS DERIK MENDOZA Grain Spouterjulian iLeberman PHONE: [phone] [facility] Group Home Facility [facility] [employer] [facility]. \FRyley [facility] [place] PHONE: [phone] SRAVANTHI CASTELLANOS Internal Medicine Current PHONE: [phone] NUBIA MENDES Nurse Practitioner Current PHONE: [phone] JEFF JIN Nurse Practitioner: Family Current PHONE: Unknown SHERRIE Nurse Practitioner Current MEIJA MARY PHONE: [phone] FISH TUBBS Internal Medicine 08/19/2019-Current PHONE: Unknown DESTINY ASKEW Family [facility] Current PHONE: Unknown Helen has no Care Guidelines for this patient. Care History Medical/Surgical 03/09/2020 [facility] Patient having syncope and seeing blood in stool.\T\nbsp; Dr. Tubbs has sent referral to Dr. Evangelista. 08/19/2019 [facility] - Patient is currently established [...] providing care. E.D. VISIT COUNT (12 MO[address] [facility]. TOTAL 11 NOTE: Visits indicate total known visits. ED/UCC VISIT TRACKING (12 MO.) 11/05/2020 10:39 [facility] [place] TYPE: Emergency COMPLAINT: - FALL 11/03/2020 11:08 [facility] [place] TYPE: Emergency COMPLAINT: - WEAKNESS 10/23/2020 19:46 [facility] [place] TYPE: Emergency COMPLAINT: - DIZZINESS DIAGNOSES: - Other wireline operator (current) drug therapy - Syncope and collapse - Dizziness and giddiness - Chronic obstructive pulmonary disease, unspecified 09/11/2020 10:22 [facility] [place] TYPE: Emergency COMPLAINT: - SHAKING, ALTERED MENTAL STATUS 09/08/2020 11:03 [facility] [place] TYPE: Emergency COMPLAINT: - MULTIPLE COMPLAINTS DIAGNOSES: - Localized edema - Chronic obstructive pulmonary disease, unspecified - Other intermediate (current) drug therapy - Strain of muscle, fascia and tendon of right hip, initial encounter - Exposure to other specified factors, initial encounter 09/03/2020 05:59 [facility] [place] TYPE: Emergency COMPLAINT: - HIP PAIN DIAGNOSES: - Other chronic pain - Other intermediate (current) drug therapy - Pain in right hip - Localized edema - Chronic obstructive pulmonary disease, unspecified 07/31/2020 02:38 [facility] [place] TYPE: Emergency COMPLAINT: - CONSTIPATION 03/08/2020 11:00 [facility] [place] TYPE: Emergency COMPLAINT: - WEAK DIAGNOSES: - Hypokalemia - Melena - Chronic obstructive pulmonary disease, unspecified - Other wireline operator (current) drug therapy - Parkinson's disease - Weakness 03/07/2020 18:35 [facility] [place] TYPE: Emergency COMPLAINT: - RECTAL BLEEDING DIAGNOSES: - Hemorrhage of anus and rectum - Chronic obstructive pulmonary disease, unspecified - Other wireline operator (current) drug therapy - Parkinson's disease 03/05/2020 08:07 [facility] [place] TYPE: Emergency COMPLAINT: - WEAKNESS DIAGNOSES: - Constipation, unspecified - Chronic obstructive pulmonary disease, unspecified - Parkinson's disease - Urinary tract infection, site not specified - Other intermediate (current) drug therapy - Weakness 03/04/2020 07:40 [facility] [place] TYPE: Emergency COMPLAINT: - WEAKNESS DIAGNOSES: - Parkinson's disease - Other intermediate (current) drug therapy - Localized edema - [...] Acute respiratory failure with hypoxia - Other wireline operator (current) drug therapy - goods layer (current) use of inhaled steroids - Angioneurotic edema, initial encounter - Benign prostatic hyperplasia without lower urinary tract symptoms 07/31/2020 09:46 [facility] [place] TYPE: Medical Surgical COMPLAINT: - ABD PAIN CONSTIPATION DIAGNOSES: - Metabolic encephalopathy - Benign prostatic hyperplasia with lower urinary tract symptoms - Fecal impaction - Other specified noninfective gastroenteritis and colitis - jail (current) use of inhaled steroids - Parkinson's disease - Essential (primary) hypertension - Chronic obstructive pulmonary disease, unspecified - Age-related physical debility - Other retention of urine - Other intermediate (current) drug therapy [id number]
== END 2020-11-05 13:12 | disposition home or self-care (01) ==
LOC: ED 10:39
DX: S09.90XA Unspecified injury of head, initial encounter (principal); W06.XXXA Fall from bed, initial encounter; J44.9 Chronic obstructive pulmonary disease, unspecified; Z79.899 Other long term (current) drug therapy
CPT/HCPCS: 70450; 99284-25

== ENCOUNTER 2020-11-08 11:55 | Emergency (ER) | payer MEDICARE, BC ==
[~2020-11-08] VITALS: Ht 182.9 cm; Wt 84.8 kg
--- OUTSIDE RECORDS SUMMARY | 2020-11-08 12:00 | XMS ---
PreManage Notification: KELLY EARLY Security Animal Health Technician Events No recent Security Events currently on file CRITERIA MET - Group Notification - 6 ED Visits in 6 Months - [facility] - Has Care Guidelines - [facility] - 2 Visits in 30 Days CARE PROVIDERS DERIK MENDOZA Bottling Room Workerjulian Lieberman PHONE: [phone] [facility] Fci Facility [facility] [employer]. \FRyley [facility] [place] PHONE: [phone] SRAVANTHI CASTELLANOS Internal Medicine Current PHONE: [phone] NUBIA MENDES Nurse Practitioner Current PHONE: [phone] JEFF JIN Nurse Practitioner: Family Current PHONE: Unknown SHERRIE Nurse Practitioner Current MEJIA MARY PHONE: [phone] FISH TUBBS Internal Medicine 08/19/2019-Current PHONE: Unknown DESTINY ASKEW Family [facility] Current PHONE: Unknown Helen has no Care Guidelines for this patient. Care History Medical/Surgical 03/09/2020 [facility] Patient having syncope and seeing blood in stool.\T\nbsp; Dr. Tubbs has sent referral to Dr. Evangelista. 08/19/2019 [facility] - Patient is currently established with [facility]. If patient is seen in the ED during business hours. Please contact CHWs at [facility]. Care Recommendation: If this patient has [...] providing care. E.D. VISIT COUNT (12 MO.) 12 [facility]. TOTAL 12 NOTE: Visits indicate total known visits. ED/UCC VISIT TRACKING (12 MO.) 11/08/2020 11:[address] [facility] [place] TYPE: Emergency COMPLAINT: - SOB 11/05/2020 10:39 [facility] [place] [facility] [place] TYPE: Emergency COMPLAINT: - FALL DIAGNOSES: - Other long term care pharmacist (current) drug therapy - Fall from bed, initial encounter - Unspecified injury of head, initial encounter - Chronic obstructive pulmonary disease, unspecified 11/03/2020 11:08 [facility] [place] [facility] [place] TYPE: Emergency COMPLAINT: - WEAKNESS DIAGNOSES: - Parkinson's disease - Weakness - Other longterm (current) drug therapy - Hypokalemia - Chronic obstructive pulmonary disease, unspecified 10/23/2020 19:46 [facility] [place] TYPE: Emergency COMPLAINT: - DIZZINESS DIAGNOSES: - Other long term care pharmacist (current) drug therapy - Syncope and collapse - Dizziness and giddiness - Chronic obstructive pulmonary disease, unspecified 09/11/2020 10:22 [facility] [place] TYPE: Emergency COMPLAINT: - SHAKING, ALTERED MENTAL STATUS 09/08/2020 11:03 [facility] [place] TYPE: Emergency COMPLAINT: - MULTIPLE COMPLAINTS DIAGNOSES: - Localized edema - Chronic obstructive pulmonary disease, unspecified - Other long term care pharmacist (current) drug therapy - Strain of muscle, fascia and tendon of right hip, initial encounter - Exposure to other specified factors, initial encounter 09/03/2020 05:59 [facility] [place] TYPE: Emergency COMPLAINT: - HIP PAIN DIAGNOSES: - Other chronic pain - Other longterm (current) drug therapy - Pain in right hip - Localized edema - Chronic obstructive pulmonary disease, unspecified 07/31/2020 02:38 [facility] [place] TYPE: Emergency COMPLAINT: - CONSTIPATION 03/08/2020 11:00 [facility] [place] [facility] [place] TYPE: Emergency COMPLAINT: - WEAK DIAGNOSES: - Hypokalemia - Melena - Chronic obstructive pulmonary disease, unspecified - Other long term care pharmacist (current) drug therapy - Parkinson's disease - Weakness 03/07/2020 18:35 [facility] [place] TYPE: Emergency COMPLAINT: - RECTAL BLEEDING DIAGNOSES: - Hemorrhage of anus and rectum - Chronic obstructive pulmonary disease, unspecified - Other long term care pharmacist (current) drug therapy - Parkinson's disease 03/05/2020 08:07 [facility] [place] TYPE: Emergency COMPLAINT: - WEAKNESS DIAGNOSES: - Constipation, unspecified - Chronic obstructive pulmonary disease, unspecified - Parkinson's disease - Urinary tract infection, site not specified - Other long term care pharmacist (current) drug therapy - Weakness 03/04/2020 07:40 [facility] [place] TYPE: Emergency COMPLAINT: - WEAKNESS DIAGNOSES: - Parkinson's disease - Other longterm (current) drug therapy - Localized edema - [...] Acute respiratory failure with hypoxia - Other long term care pharmacist (current) drug therapy - termite treater helper (current) use of inhaled steroids - Angioneurotic edema, initial encounter - Benign prostatic hyperplasia without lower urinary tract symptoms 07/31/2020 09:46 [facility] [place] TYPE: Medical Surgical COMPLAINT: - ABD PAIN CONSTIPATION DIAGNOSES: - Metabolic encephalopathy - Benign prostatic hyperplasia with lower urinary tract symptoms - Fecal impaction - Other specified noninfective gastroenteritis and colitis - termite treater helper (current) use of inhaled steroids - Parkinson's disease - Essential (primary) hypertension - Chronic obstructive pulmonary disease, unspecified - Age-related physical debility - Other retention of urine - Other long term care pharmacist (current) drug therapy [email or web address]
[2020-11-08] MEDS ORDERED: NORVASC10 MG PO (12:45)
--- NOTE | 2020-11-08 16:38 | EKG ---
[facility] [address] [place] [address] Signed Wide QRS rhythm Right bundle branch block Left anterior fascicular block Bifascicular block Left ventricular hypertrophy with repolarization abnormality Possible Lateral infarct , age undetermined Abnormal ECG When compared with ECG of 23-OCT-2020 19:57, Wide QRS rhythm has replaced Sinus rhythm Vent. rate has increased BY 42 BPM Confirmed by JABARI JOSEPH MD ([id number]) on 11/08/2020 4:38:04 PM Electronically Signed By: JABARI JOSEPH MD 11/08/20 1638 PATIENT NAME: KELLY EARLY LIZZY Electrocardiogram DATE OF : 34 PHYSICIAN: JABARI JOSEPH MD REPORT #: [id number] REPORT IS CONFIDENTIAL AND NOT TO BE RELEASED WITHOUT AUTHORIZATION
--- NOTE | 2020-11-08 16:39 | EKG ---
[facility] [address] [facility] [place], [place] [address] Signed Suspect unspecified pacemaker failure Undetermined rhythm Left axis deviation Inferior-posterior infarct , age undetermined Abnormal ECG Confirmed by JABARI JOSEPH MD ([id number]) on 11/08/2020 4:39:09 PM Electronically Signed By: JABARI JOSEPH MD 11/08/20 1639 PATIENT NAME: SHARATHKELLY LIZZY Electrocardiogram DATE OF : 34 PHYSICIAN: JABARI JOSEPH MD REPORT #: [id number] REPORT IS CONFIDENTIAL AND NOT TO BE RELEASED WITHOUT AUTHORIZATION
== END 2020-11-08 19:58 ==
LOC: ED 11:55
DX: A41.9 Sepsis, unspecified organism (principal); I95.9 Hypotension, unspecified; R09.02 Hypoxemia; I45.2 Bifascicular block; R11.10 Vomiting, unspecified; I51.7 Cardiomegaly; I10 Essential (primary) hypertension; G20 Parkinson's disease; J44.9 Chronic obstructive pulmonary disease, unspecified; D66 Hereditary factor VIII deficiency; Z66 Do not resuscitate; Z88.8 Allergy status to other drugs, medicaments and biological substances; Z79.899 Other long term (current) drug therapy
CPT/HCPCS: 51701; 71045; 80053; 81001; 83605; 84484; 85025; 93005; 93010; 94660; 99285-25; J2405; J2543; J3370; J7030; J7060; J7121